=== PATIENT | female | born 1945 | race Asian ===

== ENCOUNTER 2017-04-13 07:59 | Day surgery (SDC) | payer OTHER ==
[~2017-04-13] VITALS: Ht 154.9 cm; Wt 57.5 kg
[2017-04-13] VITALS (14 sets, daily range): BP systolic 165–200; BP diastolic 54–79; PULSE 62–82; RESP 14–28; Ht 154.9 cm; Wt 57.5 kg
[~2017-04-13 07:59] MED LIST: AMLO5TAB4 PO; ATOR20TA38 PO; CEFAZOLIN 1 GM INJ ONE; HYDR-3671 PO; INSU100C SC; LEVEM SC; LOSA50TA2 PO; PANT40TA3 PO; SERT50TA6 PO; SITA25TA3 PO; SYN75 PO
--- NOTE | 2017-04-13 08:06 | HPN ---
Date/Time of Note Date/Time of Note DATE: 04/13/17 TIME: 08:06 Interval H&P Admission Note Pt. seen H&P reviewed: No system changes NANDINI MAGALLON MD Apr 13, 2017 08:06
[2017-04-13] MEDS ORDERED: HEPARIN 1000 UNITS/ML 10 ML INJ ONE ×2 (09:29→10:25)
[2017-04-13] MEDS ORDERED: LIDOCAINE 1% (MPF) 30 ML INJ ONE (09:29)
[2017-04-13] MEDS ORDERED: ROPIVACAINE 0.2% 20 ML VIAL ONE (09:56)
[2017-04-13] MEDS ORDERED: ROPIVACAINE 0.5 % 30 ML VIAL ONE (09:56)
[2017-04-13 09:58] LABS: ADD SCAN DIFF NO
[2017-04-13 10:02] LABS: BASOPHIL # 0.1 10^3/ul (0.0-0.1); BASOPHILS % 0.9 % (0.0-2.0); EOSINOPHILS # 0.3 10^3/ul (0.0-0.5); HEMATOCRIT 35.5 % (37.0-47.0); HEMOGLOBIN 11.8 g/dl (12.0-16.0); LYMPHOCYTES # 0.9 10^3/ul (0.8-2.9); LYMPHOCYTES % 15.5 % (15.0-51.0); MEAN CORPUSCULAR HEMOGLOBIN 31.1 pg (29.0-33.0); MEAN CORPUSCULAR HGB CONC 33.2 g/dl (32.0-37.0); MEAN CORPUSCULAR VOLUME 93.4 fl (82.0-101.0); MEAN PLATELET VOLUME 10.8 fl (7.4-10.4); MONOCYTE # 0.5 10^3/ul (0.3-0.9); MONOCYTES % 8.7 % (0.0-11.0); NEUTROPHIL # 3.8 10^3/ul (1.6-7.5); NEUTROPHILS % 68.5 % (39.0-77.0); PLATELET COUNT 144 10^3/UL (140-415); RED CELL DISTRIBUTION WIDTH 14.6 % (11.5-14.5); WHITE BLOOD COUNT 5.5 10^3/ul (4.8-10.8)
[2017-04-13 10:15] LABS: INR 0.94; PROTIME 12.6 Sec (12.2-14.2)
--- NOTE | 2017-04-13 10:15 | RADRPT ---
Vent Rate: 77 bpm RR Interval: 0 msec MD Interval: 156 msec QRS Duration: 90 msec QT Interval: 440 msec QTC Interval: 497 msec P-R-T Ava: 36 - 17 - 42 degrees Normal sinus rhythm Nonspecific ST and T wave abnormality Prolonged QT Abnormal ECG Electronically Signed By: Bry Swenson [id number]
--- NOTE | 2017-04-13 10:20 | RADRPT ---
PROCEDURE: Chest Radiograph. CLINICAL INDICATION: Preop. TECHNIQUE: Single frontal chest radiograph. COMPARISON: Chest radiograph 06/02/2016 FINDINGS: A right chest wall tunneled hemodialysis catheter is in place with distal tip in the region of the c avoatrial junction. The heart is enlarged. Atherosclerotic calcifications are present. There is m ild central vascular congestion. Diffuse interstitial opacities are compatible with pulmonary edema . Hazy bibasilar opacities suggest small bilateral pleural effusions with adjacent atelectasis.. The bones are intact. IMPRESSION: 1. Cardiomegaly with mild central vascular congestion and suggested pulmonary edema. Recommend cor relation with CHF/fluid overload. 2. Probable small bilateral pleural effusions which can be confirmed with lateral view of the chest . 3. Atherosclerotic vascular disease. 4. Right chest wall tunneled hemodialysis catheter. RPTAT: KK .Dennis Lockett MD, MD Date Time Electronically viewed and signed by .Dennis Lockett MD, on 04/13/2017 10:19 .B/
[2017-04-13 10:22] LABS: ALBUMIN/GLOBULIN RATIO 1.61; BILIRUBIN,INDIRECT 0.1 mg/dl (0-1.1); BILIRUBIN,TOTAL 0.1 mg/dl (0.2-1.3); TOTAL PROTEIN 8.1 g/dl (6.1-8.1)
[2017-04-13 10:26] LABS: CALCIUM 9.4 mg/dl (8.4-10.2); CREATININE 6.63 mg/dl (0.44-1.00)
[2017-04-13] MEDS ORDERED: MIDAZOLAM 1 MG/ML 2 ML INJ ONE (10:29)
[2017-04-13] MEDS ORDERED: hydrALAzine 20 MG INJ ONE ×2 (10:46→11:28)
[2017-04-13 11:05] LABS: PARTIAL THROMBOPLASTIN TIME 36.7 Sec (25.0-35.0)
[2017-04-13] MEDS ORDERED: DIPHENHYDRAMINE 50 MG INJ IV PRN (11:30)
[2017-04-13] MEDS ORDERED: ONDANSETRON 4 MG INJ IV PRN (11:30)
[2017-04-13] MEDS ORDERED: LABETALOL HCL 20MG INJ IV PRN (11:30)
[2017-04-13] MEDS ORDERED: FENTAnyl 50 MCG/ML VIAL IV PRN (11:30)
[2017-04-13] MEDS ORDERED: hydrALAzine 20 MG INJ IV PRN (11:30)
--- NOTE | 2017-04-13 12:56 | OPR ---
DATE OF OPERATION: 04/13/2017 PREOPERATIVE DIAGNOSIS: Nonfunctional left arm arteriovenous fistula. POSTOPERATIVE DIAGNOSIS: Nonfunctional left arm arteriovenous fistula. PROCEDURE PERFORMED: Revision of left arm AV fistula. SURGEON: Nandini Rowley MD ANESTHESIA: Supraclavicular block anesthesia. ESTIMATED BLOOD LOSS: 50 mL. COMPLICATIONS: There were no intraprocedural complications. INDICATIONS: This is a 71-year-old woman. She has been on dialysis for probably over a year. She has a left arm AV fistula that I created 6 months or so ago. The fistula has a good thrill. We hav e intermittently been able to use it, but unfortunately just not consistently accessible. I have do ne several fistulograms and it is a good sized vein, but it is a little bit deep, so I brought her i n today. I was considering either superficializing it or possibly even just putting a graft in. Wh en I evaluated it again in the operating room, the vein is good size, the whole thing is at least 5 or 6 mm and there are several large branches, there is one down towards the elbow which had previous ly coiled, but then two higher up that very all away from the main vein. These were very larg e branches. Also, they were tethering it in a deep position so that it was kind of being pulled hazel n by these branches. So I decided rather than superficializing the whole vein in a linear incision, I decided to just make incisions over where the branches were, to ligate those, divide them and marco e up the vein through the tunnel, which is what I did. PROCEDURE: The patient was brought to the operating room, placed on the table in the supine positio n. Left arm was prepped and draped in the usual sterile fashion. I used ultrasound to identify the vein from the elbow all the way to the upper arm. I marked the areas where there were large side b ranches. I then made 3 transverse incisions across the fistula in the lower, middle and upper arm. I dissected down through the subcutaneous tissues using electrocautery. I then identified the ceph alic vein and the corresponding side branches. I ligated the 3 side branches with 3-0 silk ties and divided them. I then just lifted up on each incision proximally and distally and I cleared all the soft tissue over the top of the vein through the tunnel. I cut the fascia and I cleared away the s ubcutaneous fat, just basically leaving dermis right over the vein from the elbow all the way to the upper arm. I did not cut the vein anywhere, I just cut the soft tissue. I then closed the skin in cisions in 2 layers using an inner layer of 3-0 Vicryl and an outer layer of 4-0 Monocryl subcuticul ar sutures. Sterile dressings were applied. There was an excellent thrill in the fistula that was easily palpated from the elbow all the way to the upper arm. She tolerated the procedure well witho ut any complication and was transferred to the recovery room in stable condition. Dictated By: NANDINI SEQUEIRA/SAMIA Conf#: [id number] DID#: [id number]
== END 2017-04-13 14:00 | disposition home or self-care (01) ==
LOC: SDS 07:59
PROVIDERS: ATTEND Surgery Vascular Surgery
DX: T82.898A Other specified complication of vascular prosthetic devices, implants and grafts, initial encounter (principal); Y84.8 Other medical procedures as the cause of abnormal reaction of the patient, or of later complication, without mention of misadventure at the time of the procedure; Y92.89 Other specified places as the place of occurrence of the external cause; I12.0 Hypertensive chronic kidney disease with stage 5 chronic kidney disease or end stage renal disease; N18.6 End stage renal disease; E78.5 Hyperlipidemia, unspecified
CPT/HCPCS: 36832; 71010; 80053; 82962; 85025; 85610; 85730; 93005; C1725; J0360; J0690; J2250; J2405; J2795; J1644

== ENCOUNTER 2018-05-21 20:05 | Inpatient (IN) | END 2018-05-29 17:40 | disposition home health service (06) | DRG 579 ==

== ENCOUNTER 2018-05-30 17:46 | Emergency (ER) | END 2018-05-30 22:09 | disposition home or self-care (01) ==

== ENCOUNTER 2018-08-25 16:21 | Inpatient (IN) | END 2018-09-04 14:31 | disposition home health service (06) | DRG 917 ==

== ENCOUNTER 2018-12-26 17:37 | Inpatient (IN) | payer BC ==
[~2018-12-26] VITALS: Ht 147.3 cm; Wt 58.1 kg
[~2018-12-26 17:37] MED LIST changes: -AMLO5TAB4 PO; -CEFAZOLIN 1 GM INJ ONE; +CLON1PAT2 TRANSDERM; +DOXA2TAB61 PO; -INSU100C SC; +INSU100I12 SQ; +INSU100I27 SQ; -LEVEM SC; +LEVO75TA5 PO; +NIFE30TA2 PO; +NIFE60TA2 PO; -PANT40TA3 PO; +PANT40TA4 PO; -SYN75 PO
--- NOTE | 2018-12-26 18:00 | ERD ---
ER Documentation Chief Complaint Chief Complaint Complains of SOB sent from MD for eval weakness and a cough, Hx of Dialysis HPI 73-year-old female history of diabetes, hypertension, hypothyroidism, hyperlipidemia, end-stage renal disease on dialysis, duodenal ulcer, GI bleeding and shingles referred to the ED for evaluation of shortness of breath and hypoxia by her PMD Dr. Willis. Patient did have her regular dialysis earlier today. Denies chest pain or palpitations. Chronic, nonproductive cough but no URI symptoms. Generalized weakness but no headache, focal weakness or numbness. Denies abdominal pain, nausea or vomiting. No fevers or chills. ROS All systems reviewed and are negative except as per history of present illness. Medications Home Meds Reported Medications Insulin Lispro (Humalog) 100 Unit/1 Ml Cartridge, 0 SQ SLIDING SCALE, EA 12/26/18 Insulin Detemir (Levemir Flextouch) 100 Unit/1 Ml Insuln.pen, 6 UNIT SQ DAILY, EA 12/26/18 Atorvastatin Calcium* (Atorvastatin Calcium*) 20 Mg Tablet, 20 MG PO QHS, #30 TAB 12/26/18 Doxazosin Mesylate* (Doxazosin Mesylate*) 2 Mg Tablet, 6 MG PO HS, TAB 12/26/18 Hydralazine Hcl* (Hydralazine Hcl*) 50 Mg Tab, 75 MG PO TID, #90 TAB 12/26/18 Losartan Potassium* (Losartan Potassium*) 50 Mg Tablet, 50 MG PO BID, TAB 12/26/18 Sitagliptin* (Januvia*) 25 Mg Tablet, 25 MG PO DAILY, #30 TAB 12/26/18 Sertraline Hcl* (Sertraline Hcl*) 50 Mg Tablet, 50 MG PO DAILY, #30 TAB 12/26/18 Nifedipine* (Nifedipine ER*) 30 Mg Tablet.sa, 30 MG PO QPM, TAB.SA 12/26/18 Nifedipine* (Nifedipine ER*) 60 Mg Tablet.sa, 60 MG PO QAM, TAB.SA 12/26/18 Pantoprazole* (Pantoprazole*) 40 Mg Tablet.dr, 40 MG PO DAILY, TAB 12/26/18 Levothyroxine Sodium* (Levothyroxine Sodium*) 75 Mcg Tablet, 75 MCG PO BEFORE BREAKFAST, #30 TAB 12/26/18 Clonidine Patch (CLONIDINE PATCH) 0.3 Mg/24 Hr Patch, 1 PATCH.WK TD Q7D, #4 PATCH.WK 12/26/18 Discontinued Reported Medications Atorvastatin Calcium* (Atorvastatin Calcium*) 20 Mg Tablet, 20 MG PO QHS, #30 TAB 08/22/18 Insulin Lispro (Humalog Kwikpen U-100) 100 Unit/1 Ml Insuln.pen, 0 SQ SLIDING SCALE, EA 05/30/18 Insulin Detemir (Levemir Flextouch) 100 Unit/1 Ml Insuln.pen, 6 UNIT SQ DAILY, EA 05/30/18 Sitagliptin* (Januvia*) 25 Mg Tablet, 25 MG PO DAILY, #30 TAB 05/30/18 Sertraline Hcl* (Sertraline Hcl*) 50 Mg Tablet, 50 MG PO DAILY, #30 TAB 05/30/18 Levothyroxine Sodium* (Levothyroxine Sodium*) 75 Mcg Tablet, 75 MCG PO BEFORE BREAKFAST, #30 TAB 05/30/18 Pantoprazole* (Pantoprazole*) 40 Mg Tablet.dr, 40 MG PO AC BREAKFAST, TAB 05/30/18 Discontinued Scripts Nifedipine (Procardia Xl) 30 Mg Tab.er.24, 30 MG PO QPM for 30 Days, #30 TAB Prov:IGNACIO WILLIS MD 09/04/18 Nifedipine (Procardia Xl) 60 Mg Tab.er.24, 60 MG PO DAILY for 30 Days, #30 TAB Prov:IGNACIO WILLIS MD 09/04/18 Losartan Potassium* (Cozaar*) 50 Mg Tablet, 50 MG PO BID for 30 Days, #60 TAB Prov:IGNACIO WILLIS MD 09/04/18 Hydralazine Hcl* (Hydralazine Hcl*) 25 Mg Tab, 75 MG PO Q8 for 30 Days, #90 TAB Prov:IGNACIO WILLIS MD 09/04/18 Doxazosin Mesylate* (Cardura*) 2 Mg Tablet, 6 MG PO HS for 30 Days, #90 TAB Prov:IGNACIO WILLIS MD 09/04/18 Clonidine Patch (CLONIDINE PATCH) 0.2 Mg/24 Hr Patch, 1 PATCH TRANSDERM Q7D for 30 Days, #4 Prov:IGNACIO WILLIS MD 09/04/18 Allergies Allergies: Coded Allergies: No Known Allergy (Unverified , 12/26/18) PMhx/Soc Reviewed in chart. As per HPI. History of Surgery: Yes (abdominal ulcer S 2016, left breast) Anesthesia Reaction: No Hx Neurological Disorder: No Hx Respiratory Disorders: Yes (SOB with activities) Hx Cardiac Disorders: Yes (CHF) Hx Psychiatric Problems: Yes (Dementia) Hx Miscellaneous Medical Probl: Yes (Diabetes, end-stage renal disease on dialysis, hyperlipidemia) Hx Alcohol Use: No Hx Substance Use: No Hx Tobacco Use: No FmHx Mother: Diabetes. No family history of sudden cardiac or cancer. Physical Exam Vitals Vital Signs Date Temp Pulse Resp B/P (MAP) Pulse Ox O2 O2 Flow FiO2 Time Delivery Rate 12/26/18 86 99 35 19:41 12/26/18 1.0 18:17 12/26/18 91 100 35 18:17 12/26/18 98.8 86 20 138/73 83 17:46 (94) Physical Exam Const: Alert, moderate to severe respiratory distress. Head: Atraumatic Eyes: Normal Conjunctiva ENT: Normal External Ears, Nose and Mouth. Neck: Full range of motion. JVD. Resp: Breath sounds are diminished bilaterally at the bases right greater than left. Mild rales but no rhonchi. Cardio: Regular rate and rhythm, no murmurs Abd: Soft, non tender, non distended. Normal bowel sounds Skin: No petechiae or rashes Back: No midline or flank tenderness Ext: No cyanosis, or edema Neur: Awake and alert. No focal deficit observed. Psych: Cooperative. Patient appears anxious but not depressed. Result Diagram: 12/29/18 0649 12/29/18 0649 Results 24 hrs Laboratory Tests Test 12/26/18 18:14 12/26/18 18:30 Hepatitis B Surface Antigen NEGATIVE White Blood Count 12.6 10^3/ul Red Blood Count 3.10 10^6/ul Hemoglobin 9.9 g/dl Hematocrit 30.7 % Mean Corpuscular Volume 99.0 fl Mean Corpuscular Hemoglobin 31.9 pg Mean Corpuscular Hemoglobin Concent 32.2 g/dl Red Cell Distribution Width 14.1 % Platelet Count 186 10^3/UL Mean Platelet Volume 9.2 fl Immature Granulocytes % 0.900 % Neutrophils % 87.3 % Lymphocytes % 2.7 % Monocytes % 7.4 % Eosinophils % 1.1 % Basophils % 0.6 % Nucleated Red Blood Cells % 0.0 /100WBC Immature Granulocytes # 0.110 10^3/ul Neutrophils # 11.0 10^3/ul Lymphocytes # 0.3 10^3/ul Monocytes # 0.9 10^3/ul Eosinophils # 0.1 10^3/ul Basophils # 0.1 10^3/ul Nucleated Red Blood Cells # 0.0 10^3/ul Sodium Level 140 mmol/L Potassium Level 4.2 mmol/L Chloride Level 92 mmol/L Carbon Dioxide Level 34 mmol/L Anion Gap 14 Blood Urea Nitrogen 19 mg/dl Creatinine 3.44 mg/dl Est Glomerular Filtrat Rate mL/min mL/min Glucose Level 107 mg/dl Calcium Level 9.7 mg/dl Total Bilirubin 0.1 mg/dl Direct Bilirubin 0.00 mg/dl Indirect Bilirubin 0.1 mg/dl Aspartate Amino Transf (AST/SGOT) 34 IU/L Alanine Aminotransferase (ALT/SGPT) < 6 IU/L Alkaline Phosphatase 166 IU/L Troponin I 0.045 ng/ml Total Protein 9.6 g/dl Albumin 4.8 g/dl Globulin 4.80 g/dl Albumin/Globulin Ratio 1.00 Procedures/MDM DOCUMENTS REVIEWED: ED nurse, prior ED, prior records EKG: Time: 18:36. Sinus rhythm. Ventricular rate 87. Normal ME and QRS. Occasional PACs. No acute ST segment elevation or depression. My Interpretation IMAGING: PROCEDURE: XR Chest, 1 View CLINICAL INDICATION: Shortness of breath. TECHNIQUE: Frontal view of the chest. COMPARISON: 06/02/2016 FINDINGS: LUNGS: Increased pulmonary vascularity and increased interstitial markings noted. Bilateral air space infiltrates. PLEURAL SPACE: Large right pleural effusion. No left pleural effusion. No pneumothorax. HEART: Cardiomegaly is present. MEDIASTINUM: Unremarkable. BONES/JOINTS: Degenerative thoracic spine changes. VASCULATURE: Mildly tortuous, atherosclerotic thoracic aorta. IMPRESSION: 1. Cardiomegaly is present. 2. Increased pulmonary vascularity and increased interstitial markings noted. Bilateral air space infiltrates. The findings are consistent with pulmonary edema/CHF. 3. Large right pleural effusion. 4. The findings are new when compared to 06/02/2016. RPTAT: [facility] Paty Orozco Physician Bio Medical Technician Date Time Electronically viewed and signed by Paty Orozco Physician Bio Medical Technician on 12/26/2018 18:44 [facility] [place] [employer]-year-old female history of diabetes, hypertension, hypothyroidism, hyperlipidemia, end-stage renal disease on dialysis, duodenal ulcer, GI bleeding and shingles referred to the ED for evaluation of shortness of breath and hypoxia by her PMD Dr. Willis. CBC reveals mild leukocytosis and anemia consistent with prior results. Chemistry significant for elevated BUN and creatinine consistent with the patient is a history of end-stage renal disease but no hyperkalemia. EKG negative for acute ischemic changes. Troponin is not elevated. Patient presents with hypoxic respiratory failure secondary to volume overload and pleural effusions. Responded to noninvasive positive pressure ventilation. Leukocytosis but no other criteria for systemic inflammatory response syndrome. Patient require urgent dialysis and will be admitted to telemetry for further evaluation and management. CRITICAL CARE TIME: Due to the high probability of sudden clinically significant respiratory, hemodynamic and cardiovascular deterioration, this patient with hypoxic respiratory failure required multiple, frequent reevaluations of vital signs and response to therapy including noninvasive positive pressure ventilation. Additional critical care time was spent in obtaining supplemental history from PMD, extensive review of prior medical records, interpretation of relevant clinical data including labs and imaging studies as well as consultation with cardiology, nephrology and arranging for ongoing care and admission with Dr. Willis there is no. Using the TOTAL CRITICAL CARE TIME: 35 minutes not including other separately reportable procedures. CALLS/CONSULTS: Time: 18:55, Dr Willis. Request nephrology and cardiology consultations. CALLS/CONSULTS: Time: 19:08, Dr. Garland. Discussed with Dr Sams. Will arrange for dialysis. CALLS/CONSULTS: Time: 19:08, Dr. Acuña. Discussed with Dr Weller. PATIENT CARE TRANSITIONED: Time: 18:55, Dr. Willis Counseled patient regarding diagnosis, diagnostic results and plan for admission. Departure Diagnosis: Primary Impression: Acute respiratory failure with hypoxia Additional Impressions: Volume overload Hypervolemia type: unspecified Qualified Codes: E87.70 - Fluid overload, u nspecified Bilateral pleural effusion End stage renal disease on dialysis Condition: Serious CHARISSA,SONI B. MD Dec 26, 2018 18:00
[2018-12-26] MEDS ORDERED: CLON1PAT3 TD (18:25)
[2018-12-26] MEDS ORDERED: LEVO75TA5 PO (18:26)
[2018-12-26] MEDS ORDERED: PANT40TA4 PO (18:27)
[2018-12-26] MEDS ORDERED: NIFE60TA18 PO (18:28)
[2018-12-26] MEDS ORDERED: NIFE30TA23 PO (18:29)
[2018-12-26] MEDS ORDERED: SERT50TA6 PO (18:30)
[2018-12-26] MEDS ORDERED: SITA25TA3 PO (18:30)
[2018-12-26] MEDS ORDERED: LOSA50TA14 PO (18:31)
[2018-12-26] MEDS ORDERED: DOXA2TAB PO (18:32)
[2018-12-26] MEDS ORDERED: HYDR-3672 PO (18:32)
[2018-12-26] MEDS ORDERED: ATOR20TA38 PO (18:33)
[2018-12-26] MEDS ORDERED: INSU100I27 SQ (18:34)
[2018-12-26] MEDS ORDERED: INSU100C SQ (18:36)
[2018-12-26] MEDS ORDERED: ONDANSETRON 4 MG INJ IV PRN (20:00)
[2018-12-26] MEDS ORDERED: ACETAMINOPHEN 325 MG TAB PO PRN (20:00)
--- NOTE | 2018-12-26 21:11 | CONS ---
DATE OF ADMISSION: 12/26/2018 DATE OF CONSULTATION: Thank you very much for allowing me to evaluate this 73-year-old female admitted to the hospital with cough and shortness of breath. HISTORICAL EVENTS: As you well know, this patient has continued outpatient dialysis 3 times per week at [facility] unit . It has been over the last week that she has noted increasing shortness of cristi ath and approximately 1 week ago, she has clear evidence of volume overload and I attempted to maximi ze of ultrafiltration in hopes of improving the latter. It was in the afternoon today that she was m ore dyspneic and had a paroxysmal cough. I alerted you that I was concerned that she had a CHF and a n accompanying upper respiratory tract infection and thought ER eval and ultimate admission was neede d. She denied any chest pain. She had no nausea or vomiting. PAST MEDICAL HISTORY: Includes: 1. End-stage renal disease. 2. Anemia secondary to the same. 3. Hyperlipidemia. 4. Hypertension. 5. History of congestive heart failure. 6. History of duodenal ulcer with bleeding and known gastroesophageal reflux. 7. Hypothyroidism. 8. History of shingles involving the anterior chest, requiring hospitalization in August of this y ear. 9. Anterior chest wall mass, undergoing biopsy that was benign with slow healing undergoing regular evaluations at the wound care center. MEDICATIONS: On admission include: 1. Norvasc 5 b.i.d. 2. Protonix 40 per day. 3. Levemir 6 units per day. 4. Losartan 50 mg per day. 5. Januvia 25 mg per day. 6. Hydralazine 50 mg t.i.d. 7. Synthroid 75 mcg per day. 8. Zoloft 50 mg per day. 9. Lipitor 20 mg per day. 10. Catapres patch TTS-3 to be applied daily. 11. Cardura 6 mg daily. ALLERGIES: INCLUDE BENAZEPRIL. SOCIAL HISTORY: She does not drink or use alcohol. FAMILY HISTORY: Mother related to diabetes. Father related to dementia. She has 2 daught ers. PHYSICAL EXAMINATION: GENERAL: Dyspneic female in mild distress. VITAL SIGNS: BP 129/78, pulse 70 regular, respirations 22. She was afebrile. EYES: Extraocular muscles were full. NOSE, MOUTH, AND THROAT: Normal. NECK: Supple without adenopathy. JVD was present. LUNGS: Reduced breath sounds with a few expiratory wheezes. HEART: Rhythm regular. No third sound, I/ systolic murmur. No third or fourth sound. ABDOMEN: Nontender. Liver and spleen were not palpable. No mass or tenderness were noted. EXTREMITIES: No edema. NEUROLOGIC: No lateralizing motor weakness. SKIN: Revealed scars involving the anterior chest. IMPRESSION: 1. Clear evidence of volume overload/congestive heart failure. SC needs to be excluded. Will aggre ssively ultrafiltrate her. We will aggressively provide ultrafiltration tonight despite dialysis ear lier today. 2. Anemia. We will obtain iron studies and continue Procrit. 3. Await chest x-ray. May need broad spectrum antimicrobial therapy. 4. Continue pain related to shingles involving the anterior chest. We will follow with you. Dictated By: RONNIE VIVAR/SAMIA Conf#: [id number] DID#: [id number]
[2018-12-26 23:21] VITALS: PULSE 88
[2018-12-26 23:40] VITALS: BP_SYST 175; BP_SYST 180; BP_DIAS 77; BP_DIAS 92; PULSE 80; PULSE 83; RESP 19
[2018-12-26 23:55] VITALS: BP 149/90; PULSE 84
[2018-12-27] VITALS (33 sets, daily range): BP systolic 87–189; BP diastolic 35–82; PULSE 49–92; RESP 18–22; Ht 147.3 cm; Wt 58.1 kg
--- NOTE | 2018-12-27 08:31 | CONS ---
Assessment/Plan Assessment/Plan Assessment/Plan (Daily) Chest x-ray showing moderate right pleural effusion. Assessment recommendations; 1. Patient admitted with shortness of breath which is combination of pleural effusion as well as possibly acute bronchitis. 2. Prior history of pleural effusion, is not sure whether thoracentesis was performed or not. 3. Chronic renal failure, on hemodialysis. 4. Possibly some element of CHF as well. 5. History of diabetes and hypertension. 6. Anemia and thrombocytopenia. 7. History of hypothyroidism. Continue current supportive care. Obtain ultrasound-guided right thoracentesis. Start oral Zithromax for bronchitis. I did have a detailed discussion with the patient's at bedside and answered all his questions. Consultation Date/Type/Reason Admit Date/Time Dec 26, 2018 at 19:46 Date of Consultation: Dec 27, 2018 Type of Consult Pulmonary Pulmonary consult requested for evaluation of shortness of breath and pleural effusion. Patient is a pleasant 72-year-old [place] lady who was sent over to the hospital with complaints of shortness of breath for the last 2 days. Upon further evaluation a chest x-ray was done which is showing a moderate right pleural effusion. Patient also has been complaining of cough with production of pale yellow sputum for the last 2 days. Patient denies any wheezing, chest p ain, hemoptysis any fever or chills. By the time I saw the patient in the room, patient appeared comfortable and did not appear to be in any distress. Past medical history; 1. History of chronic renal failure, on hemodialysis since 2016. 2. Prior episode of pleural effusion status post thoracentesis questionable per . 3. History of diabetes and hypertension. 4. Chronic anemia. 5. History of hypothyroidism. 6. History of GI bleed due to duodenal ulcer. Medications; reviewed. Allergies; none. Social history; patient never smoked. Family history; she is , has a supportive . 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 Review of systems; denies any headache, visual changes. Any sinus symptoms. Denies any chest pain, complains of cough as outlined above. Denies any abdominal pain, nausea vomiting. Any GI bleed. Any weight loss. Has good appetite. Complains of chronic easy skin bruising. General exam; elderly female, awake alert, currently in no distress. Date/Time of Note DATE: 12/27/18 TIME: 08:27 Past Medical History Home Meds Reported Medications Insulin Lispro (Humalog) 100 Unit/1 Ml Cartridge, 0 SQ SLIDING SCALE, EA 12/26/18 Insulin Detemir (Levemir Flextouch) 100 Unit/1 Ml Insuln.pen, 6 UNIT SQ DAILY, EA 12/26/18 Atorvastatin Calcium* (Atorvastatin Calcium*) 20 Mg Tablet, 20 MG PO QHS, #30 TAB 12/26/18 Doxazosin Mesylate* (Doxazosin Mesylate*) 2 Mg Tablet, 6 MG PO HS, TAB 12/26/18 Hydralazine Hcl* (Hydralazine Hcl*) 50 Mg Tab, 75 MG PO TID, #90 TAB 12/26/18 Losartan Potassium* (Losartan Potassium*) 50 Mg Tablet, 50 MG PO BID, TAB 12/26/18 Sitagliptin* (Januvia*) 25 Mg Tablet, 25 MG PO DAILY, #30 TAB 12/26/18 Sertraline Hcl* (Sertraline Hcl*) 50 Mg Tablet, 50 MG PO DAILY, #30 TAB 12/26/18 Nifedipine* (Nifedipine ER*) 30 Mg Tablet.sa, 30 MG PO QPM, TAB.SA 12/26/18 Nifedipine* (Nifedipine ER*) 60 Mg Tablet.sa, 60 MG PO QAM, TAB.SA 12/26/18 Pantoprazole* (Pantoprazole*) 40 Mg Tablet.dr, 40 MG PO DAILY, TAB 12/26/18 Levothyroxine Sodium* (Levothyroxine Sodium*) 75 Mcg Tablet, 75 MCG PO BEFORE BREAKFAST, #30 TAB 12/26/18 Clonidine Patch (CLONIDINE PATCH) 0.3 Mg/24 Hr Patch, 1 PATCH.WK TD Q7D, #4 PATCH.WK 12/26/18 Discontinued Reported Medications Atorvastatin Calcium* (Atorvastatin Calcium*) 20 Mg Tablet, 20 MG PO QHS, #30 TAB 08/22/18 Insulin Lispro (Humalog Kwikpen U-100) 100 Unit/1 Ml Insuln.pen, 0 SQ SLIDING SCALE, EA 05/30/18 Insulin Detemir (Levemir Flextouch) 100 Unit/1 Ml Insuln.pen, 6 UNIT SQ DAILY, EA 05/30/18 Sitagliptin* (Januvia*) 25 Mg Tablet, 25 MG PO DAILY, #30 TAB 05/30/18 Sertraline Hcl* (Sertraline Hcl*) 50 Mg Tablet, 50 MG PO DAILY, #30 TAB 05/30/18 Levothyroxine Sodium* (Levothyroxine Sodium*) 75 Mcg Tablet, 75 MCG PO BEFORE BREAKFAST, #30 TAB 05/30/18 Pantoprazole* (Pantoprazole*) 40 Mg Tablet.dr, 40 MG PO AC BREAKFAST, TAB 05/30/18 Discontinued Scripts Nifedipine (Procardia Xl) 30 Mg Tab.er.24, 30 MG PO QPM for 30 Days, #30 TAB Prov:IGNACIO WILLIS MD 09/04/18 Nifedipine (Procardia Xl) 60 Mg Tab.er.24, 60 MG PO DAILY for 30 Days, #30 TAB Prov:IGNACIO WILLIS MD 09/04/18 Losartan Potassium* (Cozaar*) 50 Mg Tablet, 50 MG PO BID for 30 Days, #60 TAB Prov:IGNACIO WILLIS MD 09/04/18 Hydralazine Hcl* (Hydralazine Hcl*) 25 Mg Tab, 75 MG PO Q8 for 30 Days, #90 TAB Prov:IGNACIO WILLIS MD 09/04/18 Doxazosin Mesylate* (Cardura*) 2 Mg Tablet, 6 MG PO HS for 30 Days, #90 TAB Prov:IGNACIO WILLIS MD 09/04/18 Clonidine Patch (CLONIDINE PATCH) 0.2 Mg/24 Hr Patch, 1 PATCH TRANSDERM Q7D for 30 Days, #4 Prov:IGNACIO WILLIS MD 09/04/18 Medications Current Medications Ondansetron HCl (Zofran Inj) 4 mg ER BRIDGE PRN IV NAUSEA/VOMITING; Start 12/26/18 at 20:00; Stop 12/27/18 at 19:59 Acetaminophen (Tylenol Tab) 650 mg ER BRIDGE PRN PO .MILD PAIN 1-3 OR TEMP; Start 12/26/18 at 20:00; Stop 12/27/18 at 19:59 Albumin Human 50 ml @ 100 mls/hr WITH DIALYSIS PRN IV SBP < 90 DURING DIALYSIS; Start 12/26/18 at 23:00 Hydralazine HCl (Apresoline) 75 mg TID PO ; Start 12/27/18 at 09:00 Allergies: Coded Allergies: No Known Allergy (Unverified , 12/26/18) Social History Smoking Status: Never smoker Exam/Review of Systems Exam Vitals Vital Signs Date Temp Pulse Resp B/P (MAP) Pulse Ox O2 O2 Flow FiO2 Time Delivery Rate 12/27/18 79 08:20 12/27/18 100.2 18 150/62 92 Nasal 07:31 (91) Cannula 12/27/18 2.0 01:32 12/26/18 35 19:41 Intake and Output 12/26/18 12/26/18 12/27/18 1515:00 23:00 07:00 OutputOutput Total 2400 ml BalanceBalance -2400 ml Exam HEENT exam; supple neck, no JVD. No lymphadenopathy. Midline trachea. No thyromegaly. Pupils are small bilaterally. Patient has a multiple carious teeth. Chest exam; diminished breath sounds right lower lobe. Rest of the lung velásquez are clear. S1-S2 audible, no murmurs. Regular rhythm. Abdomen exam; soft, nontender. No organomegaly. Bowel sounds audible. Extremity exam; no peripheral edema. Patient does have patchy ecchymosis. INTELLECTUAL PROPERTY LEGAL ASSISTANT exam; no focal deficit. Results Result Diagram: 12/26/18 1830 12/26/18 1830 Results 24hrs Laboratory Tests Test 12/26/18 18:14 12/26/18 18:30 12/26/18 21:00 Hepatitis B Surface Antigen NEGATIVE White Blood Count 12.6 #H Red Blood Count 3.10 L Hemoglobin 9.9 L Hematocrit 30.7 L Mean Corpuscular Volume 99.0 Mean Corpuscular Hemoglobin 31.9 Mean Corpuscular 32.2 Hemoglobin Concent Red Cell Distribution Width 14.1 Platelet Count 186 # Mean Platelet Volume 9.2 Immature Granulocytes % 0.900 H Neutrophils % 87.3 H Lymphocytes % 2.7 L Monocytes % 7.4 Eosinophils % 1.1 Basophils % 0.6 Nucleated Red Blood Cells % 0.0 Immature Granulocytes # 0.110 H Neutrophils # 11.0 H Lymphocytes # 0.3 L Monocytes # 0.9 Eosinophils # 0.1 Basophils # 0.1 Nucleated Red Blood Cells # 0.0 Sodium Level 140 Potassium Level 4.2 Chloride Level 92 L Carbon Dioxide Level 34 H Anion Gap 14 H Blood Urea Nitrogen 19 Creatinine 3.44 H Est Glomerular Filtrat Rate mL/min Glucose Level 107 Calcium Level 9.7 Total Bilirubin 0.1 L Direct Bilirubin 0.00 Indirect Bilirubin 0.1 Aspartate Amino 34 Transf (AST/SGOT) Alanine < 6 L Aminotransferase (ALT/SGPT) Alkaline Phosphatase 166 H Troponin I 0.045 Total Protein 9.6 H Albumin 4.8 Globulin 4.80 H Albumin/Globulin Ratio 1.00 Blood Gas Specimen Source Blood arterial Arterial Blood Date Drawn 12/26/2018 7:30:29 PM Arterial Blood pH 7.502 H (Temp corrected) Arterial Blood pCO2 40.9 (Temp correct) Arterial Blood pO2 105.3 H (Temp corrected) Arterial Blood HCO3 31.3 H Arterial Blood Base Excess 7.5 H Arterial Blood 97.7 Oxygen Saturation Abhi Test ACCEPTAB Arterial Blood Gas Right Radial Puncture Site Arterial 1.0 Blood Carboxyhemoglobin Arterial Blood Methemoglobin 0.1 Blood Gas A-a O2 Differential 96.7 H Oxyhemoglobin Percent 96.6 Blood Gas Temperature 37.0 Blood Gas Respiration Rate 14.0 Blood Gas Actual 23 Respiration Rate Blood Gas Modality MASK - BIPAP FiO2 35.0 Blood Gas Pressure Support 10 Blood Gas IPAP/EPAP Ratio 15/5 Blood Gas Notified Whom MA Blood Gas Notified Time 12/26/2018 7:45:23 PM Medications Medication Current Medications Ondansetron HCl (Zofran Inj) 4 mg ER BRIDGE PRN IV NAUSEA/VOMITING; Start 12/26/18 at 20:00; Stop 12/27/18 at 19:59 Acetaminophen (Tylenol Tab) 650 mg ER BRIDGE PRN PO .MILD PAIN 1-3 OR TEMP; Start 12/26/18 at 20:00; Stop 12/27/18 at 19:59 Albumin Human 50 ml @ 100 mls/hr WITH DIALYSIS PRN IV SBP < 90 DURING DIALYSIS; Start 12/26/18 at 23:00 Hydralazine HCl (Apresoline) 75 mg TID PO ; Start 12/27/18 at 09:00 JIMMY GREGORY Dec 27, 2018 08:31
--- NOTE | 2018-12-27 08:47 | CONS ---
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) check procalcitonin check nasal for MRSA ordered respiratory culture 2) DM 3) ESRD 4) HTN 5) chest wall wound infection no further drainage and no sign of redness at prior site Consultation Date/Type/Reason Admit Date/Time Dec 26, 2018 at 19:46 Date of Consultation: Dec 27, 2018 Type of Consult ID Date/Time of Note DATE: 12/27/18 TIME: 08:42 Hx of Present Illness Pt has had a cough and SOB for a week cough productive of creamy phlegm no F, C, NS No N, V, D no CP she has a sore throat, no coryza no muscle aches or joint pains Past Medical History DM, HTN, hyperlipidemia, hypothyroidism, ESRD, CHF Home Meds Reported Medications Insulin Lispro (Humalog) 100 Unit/1 Ml Cartridge, 0 SQ SLIDING SCALE, EA 12/26/18 Insulin Detemir (Levemir Flextouch) 100 Unit/1 Ml Insuln.pen, 6 UNIT SQ DAILY, EA 12/26/18 Atorvastatin Calcium* (Atorvastatin Calcium*) 20 Mg Tablet, 20 MG PO QHS, #30 TAB 12/26/18 Doxazosin Mesylate* (Doxazosin Mesylate*) 2 Mg Tablet, 6 MG PO HS, TAB 12/26/18 Hydralazine Hcl* (Hydralazine Hcl*) 50 Mg Tab, 75 MG PO TID, #90 TAB 12/26/18 Losartan Potassium* (Losartan Potassium*) 50 Mg Tablet, 50 MG PO BID, TAB 12/26/18 Sitagliptin* (Januvia*) 25 Mg Tablet, 25 MG PO DAILY, #30 TAB 12/26/18 Sertraline Hcl* (Sertraline Hcl*) 50 Mg Tablet, 50 MG PO DAILY, #30 TAB 12/26/18 Nifedipine* (Nifedipine ER*) 30 Mg Tablet.sa, 30 MG PO QPM, TAB.SA 12/26/18 Nifedipine* (Nifedipine ER*) 60 Mg Tablet.sa, 60 MG PO QAM, TAB.SA 12/26/18 Pantoprazole* (Pantoprazole*) 40 Mg Tablet.dr, 40 MG PO DAILY, TAB 12/26/18 Levothyroxine Sodium* (Levothyroxine Sodium*) 75 Mcg Tablet, 75 MCG PO BEFORE BREAKFAST, #30 TAB 12/26/18 Clonidine Patch (CLONIDINE PATCH) 0.3 Mg/24 Hr Patch, 1 PATCH.WK TD Q7D, #4 PATCH.WK 12/26/18 Discontinued Reported Medications Atorvastatin Calcium* (Atorvastatin Calcium*) 20 Mg Tablet, 20 MG PO QHS, #30 TAB 08/22/18 Insulin Lispro (Humalog Kwikpen U-100) 100 Unit/1 Ml Insuln.pen, 0 SQ SLIDING S MARTÍNEZ, EA 05/30/18 Insulin Detemir (Levemir Flextouch) 100 Unit/1 Ml Insuln.pen, 6 UNIT SQ DAILY, EA 05/30/18 Sitagliptin* (Januvia*) 25 Mg Tablet, 25 MG PO DAILY, #30 TAB 05/30/18 Sertraline Hcl* (Sertraline Hcl*) 50 Mg Tablet, 50 MG PO DAILY, #30 TAB 05/30/18 Levothyroxine Sodium* (Levothyroxine Sodium*) 75 Mcg Tablet, 75 MCG PO BEFORE BREAKFAST, #30 TAB 05/30/18 Pantoprazole* (Pantoprazole*) 40 Mg Tablet.dr, 40 MG PO AC BREAKFAST, TAB 05/30/18 Discontinued Scripts Nifedipine (Procardia Xl) 30 Mg Tab.er.24, 30 MG PO QPM for 30 Days, #30 TAB Prov:IGNACIO WILLIS MD 09/04/18 Nifedipine (Procardia Xl) 60 Mg Tab.er.24, 60 MG PO DAILY for 30 Days, #30 TAB Prov:IGNACIO WILLIS MD 09/04/18 Losartan Potassium* (Cozaar*) 50 Mg Tablet, 50 MG PO BID for 30 Days, #60 TAB Prov:IGNACIO WILLIS MD 09/04/18 Hydralazine Hcl* (Hydralazine Hcl*) 25 Mg Tab, 75 MG PO Q8 for 30 Days, #90 TAB Prov:IGNACIO WILLIS MD 09/04/18 Doxazosin Mesylate* (Cardura*) 2 Mg Tablet, 6 MG PO HS for 30 Days, #90 TAB Prov:IGNACIO WILLIS MD 09/04/18 Clonidine Patch (CLONIDINE PATCH) 0.2 Mg/24 Hr Patch, 1 PATCH TRANSDERM Q7D for 30 Days, #4 Prov:IGNACIO WILLIS MD 09/04/18 Medications Current Medications Albumin Human 50 ml @ 100 mls/hr WITH DIALYSIS PRN IV SBP < 90 DURING DIALYSIS; Start 12/26/18 at 23:00 Hydralazine HCl (Apresoline) 75 mg TID PO ; Start 12/27/18 at 09:00 Azithromycin (Zithromax) 500 mg ONCE ONCE PO ; Start 12/27/18 at 09:00; Stop 12/27/18 at 09:01 Azithromycin (Zithromax) 250 mg DAILY PO ; Start 12/28/18 at 09:00; Stop 12/31/18 at 09:01 Ceftriaxone Sodium 1000 mg/ Sodium Chloride 50 ml @ 100 mls/hr Q24H IVPB ; Start 12/27/18 at 09:00; Status UNV Allergies: Coded Allergies: No Known Allergy (Unverified , 12/26/18) Social History Smoking Status: Never smoker Exam/Review of Systems Exam Vitals Vital Signs Date Temp Pulse Resp B/P (MAP) Pulse Ox O2 O2 Flow FiO2 Time Delivery Rate 12/27/18 79 08:20 12/27/18 100.2 18 150/62 92 Nasal 07:31 (91) Cannula 12/27/18 2.0 01:32 12/26/18 35 19:41 Intake and Output 12/26/18 12/26/18 12/27/18 1515:00 23:00 07:00 OutputOutput Total 2400 ml BalanceBalance -2400 ml Exam pt is a bit lethargic but answers questions with prompting Constitutional: alert Eyes: nl sclera ENMT: mucosa pink and moist Respiratory: clear to auscultation Cardiovascular: regular rate and rhythm Gastrointestinal: soft, non-tender Results Result Diagram: 12/26/18 1830 12/26/18 1830 Results 24hrs Laboratory Tests Test 12/26/18 18:14 12/26/18 18:30 12/26/18 21:00 12/27/18 07:25 Hepatitis B NEGATIVE Surface Antigen White Blood Count 12.6 #H Pending Red Blood Count 3.10 L Pending Hemoglobin 9.9 L Pending Hematocrit 30.7 L Pending Mean Corpuscular 99.0 Pending Volume Mean Corpuscular 31.9 Pending Hemoglobin Mean Corpuscular 32.2 Pending Hemoglobin Concent Red Cell 14.1 Pending Distribution Width Platelet Count 186 # Pending Mean Platelet 9.2 Pending Volume Immature 0.900 H Granulocytes % Neutrophils % 87.3 H Lymphocytes % 2.7 L Monocytes % 7.4 Eosinophils % 1.1 Basophils % 0.6 Nucleated Red 0.0 Blood Cells % Immature 0.110 H Granulocytes # Neutrophils # 11.0 H Lymphocytes # 0.3 L Monocytes # 0.9 Eosinophils # 0.1 Basophils # 0.1 Nucleated Red 0.0 Blood Cells # Sodium Level 140 Potassium Level 4.2 Chloride Level 92 L Carbon Dioxide 34 H Level Anion Gap 14 H Blood Urea 19 Nitrogen Creatinine 3.44 H Est Glomerular Filtrat Rate mL/min Glucose Level 107 Calcium Level 9.7 Total Bilirubin 0.1 L Direct Bilirubin 0.00 Indirect Bilirubin 0.1 Aspartate Amino 34 Transf (AST/SGOT) Alanine < 6 L Aminotransferase ( ALT/SGPT) Alkaline 166 H Phosphatase Troponin I 0.045 Total Protein 9.6 H Albumin 4.8 Globulin 4.80 H Albumin/Globulin 1.00 Ratio Blood Gas Specimen Blood arterial Source Arterial Blood 12/26/2018 7:30:29 Date Drawn PM Arterial Blood pH 7.502 H (Temp corrected) Arterial Blood 40.9 pCO2 (Temp correct) Arterial Blood pO2 105.3 H (Temp corrected) Arterial Blood 31.3 H HCO3 Arterial Blood 7.5 H Base Excess Arterial Blood 97.7 Oxygen Saturation Abhi Test ACCEPTAB Arterial Blood Gas Right Radial Puncture Site Arterial 1.0 Blood Carboxyhemog lobin Arterial Blood 0.1 Methemoglobin Blood Gas A-a O2 96.7 H Differential Oxyhemoglobin 96.6 Percent Blood Gas 37.0 Temperature Blood Gas 14.0 Respiration Rate Blood Gas Actual 23 Respiration Rate Blood Gas Modality MASK - BIPAP FiO2 35.0 Blood Gas Pressure 10 Support Blood Gas 15/5 IPAP/EPAP Ratio Blood Gas Notified MA Whom Blood Gas Notified 12/26/2018 7:45:23 Time PM Medications Medication Current Medications Albumin Human 50 ml @ 100 mls/hr WITH DIALYSIS PRN IV SBP < 90 DURING DIALYSIS; Start 12/26/18 at 23:00 Hydralazine HCl (Apresoline) 75 mg TID PO ; Start 12/27/18 at 09:00 Azithromycin (Zithromax) 500 mg ONCE ONCE PO ; Start 12/27/18 at 09:00; Stop 12/27/18 at 09:01 Azithromycin (Zithromax) 250 mg DAILY PO ; Start 12/28/18 at 09:00; Stop 12/31/18 at 09:01 Ceftriaxone Sodium 1000 mg/ Sodium Chloride 50 ml @ 100 mls/hr Q24H IVPB ; Start 12/27/18 at 09:00; Status UNV PAUL MARTINEZ MD Dec 27, 2018 08:47
--- NOTE | 2018-12-27 08:48 | CONS ---
Assessment/Plan Assessment/Plan Assessment/Plan (Daily) 1. ESRD 2. CHF/Vol overload persists, will hd again 3. Respir infection with pleural effusion noted, I asked ID to see (Dr. Mendosa) 4. HBP 5. Anemia Consultation Date/Type/Reason Admit Date/Time Dec 26, 2018 at 19:46 Initial Consult Date 12/27/18 Date/Time of Note DATE: 12/27/18 TIME: 08:45 Detailed Summary Respiratory: cough (is moderate with green mucus per ), shortness of breath Cardiovascular: No chest pain Gastrointestinal: no complaints Genitourinary: no complaints Exam/Review of Systems Exam Vitals Vital Signs Date Temp Pulse Resp B/P (MAP) Pulse Ox O2 O2 Flow FiO2 Time Delivery Rate 12/27/18 79 08:20 12/27/18 100.2 18 150/62 92 Nasal 07:31 (91) Cannula 12/27/18 2.0 01:32 12/26/18 35 19:41 Intake and Output 12/26/18 12/26/18 12/27/18 1515:00 23:00 07:00 OutputOutput Total 2400 ml BalanceBalance -2400 ml Neck: jvd Respiratory: other (rales and rhonhci bilat) Cardiovascular: regular rate and rhythm; No S3 Gastrointestinal: soft Extremities: No edema Results Result Diagram: 12/26/18 1830 12/26/18 1830 Results 24hrs Laboratory Tests Test 12/26/18 18:14 12/26/18 18:30 12/26/18 21:00 12/27/18 07:25 Hepatitis B NEGATIVE Surface Antigen White Blood Count 12.6 #H Pending Red Blood Count 3.10 L Pending Hemoglobin 9.9 L Pending Hematocrit 30.7 L Pending Mean Corpuscular 99.0 Pending Volume Mean Corpuscular 31.9 Pending Hemoglobin Mean Corpuscular 32.2 Pending Hemoglobin Concent Red Cell 14.1 Pending Distribution Width Platelet Count 186 # Pending Mean Platelet 9.2 Pending Volume Immature 0.900 H Granulocytes % Neutrophils % 87.3 H Lymphocytes % 2.7 L Monocytes % 7.4 Eosinophils % 1.1 Basophils % 0.6 Nucleated Red 0.0 Blood Cells % Immature 0.110 H Granulocytes # Neutrophils # 11.0 H Lymphocytes # 0.3 L Monocytes # 0.9 Eosinophils # 0.1 Basophils # 0.1 Nucleated Red 0.0 Blood Cells # Sodium Level 140 Potassium Level 4.2 Chloride Level 92 L Carbon Dioxide 34 H Level Anion Gap 14 H Blood Urea 19 Nitrogen Creatinine 3.44 H Est Glomerular Filtrat Rate mL/min Glucose Level 107 Calcium Level 9.7 Total Bilirubin 0.1 L Direct Bilirubin 0.00 Indirect Bilirubin 0.1 Aspartate Amino 34 Transf (AST/SGOT) Alanine < 6 L Aminotransferase ( ALT/SGPT) Alkaline 166 H Phosphatase Troponin I 0.045 Total Protein 9.6 H Albumin 4.8 Globulin 4.80 H Albumin/Globulin 1.00 Ratio Blood Gas Specimen Blood arterial Source Arterial Blood 12/26/2018 7:30:29 Date Drawn PM Arterial Blood pH 7.502 H (Temp corrected) Arterial Blood 40.9 pCO2 (Temp correct) Arterial Blood pO2 105.3 H (Temp corrected) Arterial Blood 31.3 H HCO3 Arterial Blood 7.5 H Base Excess Arterial Blood 97.7 Oxygen Saturation Abhi Test ACCEPTAB Arterial Blood Gas Right Radial Puncture Site Arterial 1.0 Blood Carboxyhemog lobin Arterial Blood 0.1 Methemoglobin Blood Gas A-a O2 96.7 H Differential Oxyhemoglobin 96.6 Percent Blood Gas 37.0 Temperature Blood Gas 14.0 Respiration Rate Blood Gas Actual 23 Respiration Rate Blood Gas Modality MASK - BIPAP FiO2 35.0 Blood Gas Pressure 10 Support Blood Gas 15/5 IPAP/EPAP Ratio Blood Gas Notified ND Whom Blood Gas Notified 12/26/2018 7:45:23 Time PM Medications Medication Current Medications Albumin Human 50 ml @ 100 mls/hr WITH DIALYSIS PRN IV SBP < 90 DURING DIALYSIS; Start 12/26/18 at 23:00 Hydralazine HCl (Apresoline) 75 mg TID PO ; Start 12/27/18 at 09:00 Azithromycin (Zithromax) 500 mg ONCE ONCE PO ; Start 12/27/18 at 09:00; Stop 12/27/18 at 09:01 Azithromycin (Zithromax) 250 mg DAILY PO ; Start 12/28/18 at 09:00; Stop 12/31/18 at 09:01 Ceftriaxone Sodium 1000 mg/ Sodium Chloride 50 ml @ 100 mls/hr Q24H IVPB ; Start 12/27/18 at 09:00; Status UNV RONNIE VASQUEZ MD Dec 27, 2018 08:48
[2018-12-27] MEDS ORDERED: AZITHROMYCIN 250 MG TAB PO ONE (09:00)
[2018-12-27] MEDS: LEVOTHYROXINE 75 MCG TAB PO SCH (09:52)
[2018-12-27] MEDS: PANTOPRAZOLE (EC) 40 MG TAB PO SCH (09:52)
[2018-12-27] MEDS: SERTRALINE 50 MG TAB PO SCH (09:52)
[2018-12-27] MEDS: MULTIVIT/CA CARB/B CMPLX/FA TAB PO SCH (09:52)
[2018-12-27] MEDS: LOSARTAN 50 MG TAB PO SCH ×2 (09:53→20:31)
[2018-12-27] MEDS: NIFEdipine (XL) 60 MG TAB PO SCH (09:53)
[2018-12-27] MEDS: LINAGLIPTIN 5 MG TABLET PO SCH (09:53)
[2018-12-27] MEDS ORDERED: GLUCOSE GEL 15 GRAM TUBE PO PRN ×2 (10:00)
[2018-12-27] MEDS: ACETAMINOPHEN 325 MG TAB PO PRN (10:00)
[2018-12-27] MEDS ORDERED: DEXTROSE 50% 50 ML SYRINGE IV PRN ×2 (10:00)
[2018-12-27] MEDS ORDERED: GLUCOSE GEL 15 GRAM TUBE BUCCAL PRN (10:00)
[2018-12-27] MEDS ORDERED: GLUCAGON 1 MG INJ IM PRN (10:00)
[2018-12-27] MEDS: CEFTRIAXONE 1,000 MG in SOD CHLORIDE 0.9% 50 ML IVPB SCH (11:04)
[2018-12-27] MEDS ORDERED: INSULIN ASPART [NOVOLOG] 3 ML PEN SC SCH (11:20)
[2018-12-27] MEDS: Insulin NOVOLOG SS MILD Algorithm (NPO/TPN/ENTERAL FEEDS) SC SCH ×2 (12:15→17:25)
--- NOTE | 2018-12-27 14:12 | CONS ---
Assessment/Plan Assessment/Plan Hospital Course (Demo Recall) - Dyspnea- likely volume overload vs. infectious. agree with therapeutic/diagnostic thoracentesis and fluid mgmt with iHD with renal/ bp difficult to control, will titrate meds - Hypertension- difficult to control, avoid atenolol given chb with medication in past. c - Chronic diastolic HF-as above - ESRD on iHD - CAD- dense calcification non CT scan - DM2-difficult to control Recommendations:= - cont iHD - cont nifedipine inc - cont hydralazine 75mg po q8h - cont clonidine - titrate bp meds - thoracentesis pending - echo when resp more stable Consultation Date/Type/Reason Admit Date/Time Dec 26, 2018 at 19:46 Date of Consultation: Dec 27, 2018 Type of Consult Cardiology Reason for Consultation SOB Requesting Provider: IGNACIO WILLIS MD Date/Time of Note DATE: 12/27/18 TIME: 14:08 Hx of Present Illness 73 y.o. with h/o malignant htn, esrd on ihd, previous chb 2/2 beta blockers presents for progressive servin x 1 week. per family/pt, has been going to regular iHD sessions, notices increase dyspnea at rest and exertion. + orthopnea, no edema, palpitations, cp. no syncope. pt denies fevers, chills, sweats. admitted to [facility] for [facility], but still sob after. cxr showed pleural effusion, plan for thoracentesis pt states. tele reviewed nsr no events. all other systems negative Past Medical History End-stage renal disease, on dialysis, diabetes with complications, hypertension, hyperlipidemia, duodenal ulcer, congestive heart failure, anemia, hypothyroidism, anxiety, GERD. temporary heart block do to beta blockers Past Surgical History duodenal ulcer ectopic temp ppm (no permanent pacer placed) Family History Significant Family History: no pertinent family hx Social History Alcohol Use: none Smoking Status: Never smoker Drug Use: none Home Meds Reported Medications Insulin Lispro (Humalog) 100 Unit/1 Ml Cartridge, 0 SQ SLIDING SCALE, EA 12/26/18 Insulin Detemir (Levemir Flextouch) 100 Unit/1 Ml Insuln.pen, 6 UNIT SQ DAILY, EA 12/26/18 Atorvastatin Calcium* (Atorvastatin Calcium*) 20 Mg Tablet, 20 MG PO QHS, #30 TAB 12/26/18 Doxazosin Mesylate* (Doxazosin Mesylate*) 2 Mg Tablet, 6 MG PO HS, TAB 12/26/18 Hydralazine Hcl* (Hydralazine Hcl*) 50 Mg Tab, 75 MG PO TID, #90 TAB 12/26/18 Losartan Potassium* (Losartan Potassium*) 50 Mg Tablet, 50 MG PO BID, TAB 12/26/18 Sitagliptin* (Januvia*) 25 Mg Tablet, 25 MG PO DAILY, #30 TAB 12/26/18 Sertraline Hcl* (Sertraline Hcl*) 50 Mg Tablet, 50 MG PO DAILY, #30 TAB 12/26/18 Nifedipine* (Nifedipine ER*) 30 Mg Tablet.sa, 30 MG PO QPM, TAB.SA 12/26/18 Nifedipine* (Nifedipine ER*) 60 Mg Tablet.sa, 60 MG PO QAM, TAB.SA 12/26/18 Pantoprazole* (Pantoprazole*) 40 Mg Tablet.dr, 40 MG PO DAILY, TAB 12/26/18 Levothyroxine Sodium* (Levothyroxine Sodium*) 75 Mcg Tablet, 75 MCG PO BEFORE BREAKFAST, #30 TAB 12/26/18 Clonidine Patch (CLONIDINE PATCH) 0.3 Mg/24 Hr Patch, 1 PATCH.WK TD Q7D, #4 PATCH.WK 12/26/18 Discontinued Reported Medications Atorvastatin Calcium* (Atorvastatin Calcium*) 20 Mg Tablet, 20 MG PO QHS, #30 TAB 08/22/18 Insulin Lispro (Humalog Kwikpen U-100) 100 Unit/1 Ml Insuln.pen, 0 SQ SLIDING SCALE, EA 05/30/18 Insulin Detemir (Levemir Flextouch) 100 Unit/1 Ml Insuln.pen, 6 UNIT SQ DAILY, EA 05/30/18 Sitagliptin* (Januvia*) 25 Mg Tablet, 25 MG PO DAILY, #30 TAB 05/30/18 Sertraline Hcl* (Sertraline Hcl*) 50 Mg Tablet, 50 MG PO DAILY, #30 TAB 05/30/18 Levothyroxine Sodium* (Levothyroxine Sodium*) 75 Mcg Tablet, 75 MCG PO BEFORE BREAKFAST, #30 TAB 05/30/18 Pantoprazole* (Pantoprazole*) 40 Mg Tablet.dr, 40 MG PO AC BREAKFAST, TAB 05/30/18 Discontinued Scripts Nifedipine (Procardia Xl) 30 Mg Tab.er.24, 30 MG PO QPM for 30 Days, #30 TAB Prov:IGNACIO WILLIS MD 09/04/18 Nifedipine (Procardia Xl) 60 Mg Tab.er.24, 60 MG PO DAILY for 30 Days, #30 TAB Prov:IGNACIO WILLIS MD 09/04/18 Losartan Potassium* (Cozaar*) 50 Mg Tablet, 50 MG PO BID for 30 Days, #60 TAB Prov:IGNACIO WILLIS MD 09/04/18 Hydralazine Hcl* (Hydralazine Hcl*) 25 Mg Tab, 75 MG PO Q8 for 30 Days, #90 TAB Prov:IGNACIO WILLIS MD 09/04/18 Doxazosin Mesylate* (Cardura*) 2 Mg Tablet, 6 MG PO HS for 30 Days, #90 TAB Prov:IGNACIO WILLIS MD 09/04/18 Clonidine Patch (CLONIDINE PATCH) 0.2 Mg/24 Hr Patch, 1 PATCH TRANSDERM Q7D for 30 Days, #4 Prov:IGNACIO WILLIS MD 09/04/18 Medications Current Medications Albumin Human 50 ml @ 100 mls/hr WITH DIALYSIS PRN IV SBP < 90 DURING DIALYSIS; Start 12/26/18 at 23:00 Hydralazine HCl (Apresoline) 75 mg TID PO Last administered on 12/27/18at 08:42; Admin Dose 75 MG; Start 12/27/18 at 09:00 Azithromycin (Zithromax) 250 mg DAILY PO ; Start 12/28/18 at 09:00; Stop 12/31/18 at 09:01 Ceftriaxone Sodium 1000 mg/ Sodium Chloride 50 ml @ 100 mls/hr Q24H IVPB Last administered on 12/27/18at 11:04; Admin Dose 100 MLS/HR; Start 12/27/18 at 11:00 Acetaminophen (Tylenol Tab) 650 mg Q6H PRN PO MILD PAIN(1-3)OR ELEVATED TEMP [place] st administered on 12/27/18at 10:00; Admin Dose 650 MG; Start 12/27/18 at 09:00 Atorvastatin Calcium (Lipitor) 20 mg QHS PO ; Start 12/27/18 at 21:00 Clonidine HCl (Catapres-Tts 3 Patch) 0.3 patch Q7D TRANSDERM ; Start 12/27/18 at 11:00 Doxazosin Mesylate (Cardura) 6 mg HS PO ; Start 12/27/18 at 21:00 Insulin Detemir (Levemir) 6 units HS SC ; Start 12/27/18 at 21:00 Levothyroxine Sodium (Synthroid) 75 mcg BEFORE BREAKFAST PO Last administered on 12/27/18 09:52; Admin Dose 75 MCG; Start 12/27/18 at 09:30 Losartan Potassium (Cozaar) 50 mg BID PO Last administered on 12/27/18 09:53; Admin Dose 50 MG; Start 12/27/18 at 09:30 Nifedipine (Procardia Xl) 30 mg QPM PO ; Start 12/27/18 at 21:00 Nifedipine (Procardia Xl) 60 mg QAM PO Last administered on 12/27/18 09:53; Admin Dose 60 MG; Start 12/27/18 at 09:30 Pantoprazole (Protonix Tab) 40 mg DAILY@0600 PO Last administered on 12/27/18 09:52; Admin Dose 40 MG; Start 12/27/18 at 09:30 Sertraline HCl (Zoloft) 50 mg DAILY PO Last administered on 12/27/18 09:52; Admin Dose 50 MG; Start 12/27/18 at 09:30 Epoetin Vince (Epogen (Esrd)) 10,000 units MoWeFr@17 SC ; Start 12/27/18 at 17:00 Multivit/Ca Carb/ B Cmplx/FA/Prenat (Praveena-Bonifacio) 1 tab DAILY PO Last a dministered on 12/27/18 09:52; Admin Dose 1 TAB; Start 12/27/18 at 09:30 Diagnostic Test (Pha) (Accu-Chek) 1 ea 02 XX ; Start 12/28/18 at 02:00 Linagliptin (Tradjenta) 5 mg DAILY PO Last administered on 12/27/18 09:53; Admin Dose 5 MG; Start 12/27/18 at 09:30 Miscellaneous Information 1 ea NOTE XX ; Start 12/27/18 at 10:00 Glucose (Glutose) 15 gm Q15M PRN PO DECREASED GLUCOSE; Start 12/27/18 at 10:00 Glucose (Glutose) 22.5 gm Q15M PRN PO DECREASED GLUCOSE; Start 12/27/18 at 10:00 Dextrose (D50w Syringe) 25 ml Q15M PRN IV DECREASED GLUCOSE; Start 12/27/18 at 10:00 Dextrose (D50w Syringe) 50 ml Q15M PRN IV DECREASED GLUCOSE; Start 12/27/18 at 10:00 Glucagon (Glucagen) 1 mg Q15M PRN IM DECREASED GLUCOSE; Start 12/27/18 at 10:00 Glucose (Glutose) 15 gm Q15M PRN BUCCAL DECREASED GLUCOSE; Start 12/27/18 at 10:00 Insulin Aspart (Novolog Insulin Pen) (Adult SC Insulin - Mild Algorithm)... AC MEALS SC Last administered on 12/27/18at 12:15; Admin Dose 1 UNIT; Start 12/27/18 at 11:20 Allergies: Coded Allergies: No Known Allergy (Unverified , 12/26/18) Exam/Review of Systems Exam Vitals Vital Signs Date Temp Pulse Resp B/P (MAP) Pulse Ox O2 O2 Flow FiO2 Time Delivery Rate 12/27/18 71 12:20 12/27/18 99.1 22 133/63 95 Nasal 11:11 (86) Cannula 12/27/18 2.0 09:54 12/26/18 35 19:41 Intake and Output 12/26/18 12/26/18 12/27/18 1414:59 22:59 06:59 OutputOutput Total 2400 ml BalanceBalance -2400 ml Exam Constitutional: alert, oriented Psych: no complaints Head: atraumatic, normocephalic Eyes: nl conjunctiva ENMT: mucosa pink and moist Neck: non-tender, supple, No jvd Respiratory: crackles with decreased ls R ase Cardiovascular: nl pulses, regular rate and rhythm, systolic murmur, No irregular rhythm Gastrointestinal: soft Musculoskeletal: nl extremities to inspection Extremities: normal pulses Neurological: [employer] II-XII intact Skin: nl turgor Results Result Diagram: 12/27/18 0725 12/27/18 0725 Results 24hrs Laboratory Tests Test 12/26/18 18:14 12/26/18 18:30 12/26/18 21:00 12/27/18 07:25 Hepatitis B NEGATIVE Surface Antigen White Blood Count 12.6 #H 11.5 H Red Blood Count 3.10 L 3.05 L Hemoglobin 9.9 L 9.7 L Hematocrit 30.7 L 30.5 L Mean Corpuscular 99.0 100.0 Volume Mean Corpuscular 31.9 31.8 Hemoglobin Mean Corpuscular 32.2 31.8 L Hemoglobin Concent Red Cell 14.1 13.8 Distribution Width Platelet Count 186 # 213 Mean Platelet 9.2 9.2 Volume Immature 0.900 H 0.600 H Granulocytes % Neutrophils % 87.3 H 83.7 H Lymphocytes % 2.7 L 4.3 L Monocytes % 7.4 9.4 Eosinophils % 1.1 1.5 Basophils % 0.6 0.5 Nucleated Red 0.0 0.0 Blood Cells % Immature 0.110 H 0.070 H Granulocytes # Neutrophils # 11.0 H 9.6 H Lymphocytes # 0.3 L 0.5 L Monocytes # 0.9 1.1 H Eosinophils # 0.1 0.2 Basophils # 0.1 0.1 Nucleated Red 0.0 0.0 Blood Cells # Sodium Level 140 141 Potassium Level 4.2 4.7 Chloride Level 92 L 94 L Carbon Dioxide 34 H 32 H Level Anion Gap 14 H 15 H Blood Urea 19 27 H Nitrogen Creatinine 3.44 H 4.88 #H Est Glomerular Filtrat Rate mL/min Glucose Level 107 86 Calcium Level 9.7 9.4 Total Bilirubin 0.1 L Direct Bilirubin 0.00 Indirect Bilirubin 0.1 Aspartate Amino 34 Transf (AST/SGOT) Alanine < 6 L Aminotransferase ( ALT/SGPT) Alkaline 166 H Phosphatase Troponin I 0.045 Total Protein 9.6 H Albumin 4.8 Globulin 4.80 H Albumin/Globulin 1.00 Ratio Blood Gas Specimen Blood arterial Source Arterial Blood 12/26/2018 7:30:29 Date Drawn PM Arterial Blood pH 7.502 H (Temp corrected) Arterial Blood 40.9 pCO2 (Temp correct) Arterial Blood pO2 105.3 H (Temp corrected) Arterial Blood 31.3 H HCO3 Arterial Blood 7.5 H Base Excess Arterial Blood 97.7 Oxygen Saturation Abhi Test ACCEPTAB Arterial Blood Gas Right Radial Puncture Site Arterial 1.0 Blood Carboxyhemog lobin Arterial Blood 0.1 Methemoglobin Blood Gas A-a O2 96.7 H Differential Oxyhemoglobin 96.6 Percent Blood Gas 37.0 Temperature Blood Gas 14.0 Respiration Rate Blood Gas Actual 23 Respiration Rate Blood Gas Modality MASK - BIPAP FiO2 35.0 Blood Gas Pressure 10 Support Blood Gas 15/5 IPAP/EPAP Ratio Blood Gas Notified CHRIS Whom Blood Gas Notified 12/26/2018 7:45:23 Time PM Phosphorus Level 3.8 Iron Level 21 L Total Iron Binding 166 L Capacity Percent Iron 13 L Saturation Ferritin 727.0 H Test 12/27/18 09:52 12/27/18 10:24 12/27/18 12:06 Bedside Glucose 120 144 Prothrombin Time 13.9 Prothrombin Time 1.1 Ratio INR International 1.06 Normalized Ratio Activated 47.[address] Time Imaging Imaging cxr report reviewed in emr Medications Medication Current Medications Albumin Human 50 ml @ 100 mls/hr WITH DIALYSIS PRN IV SBP < 90 DURING DIALYSIS; Start 12/26/18 at 23:00 Hydralazine HCl (Apresoline) 75 mg TID PO Last administered on 12/27/18at 08:42; Admin Dose 75 MG; Start 12/27/18 at 09:00 Azithromycin (Zithromax) 250 mg DAILY PO ; Start 12/28/18 at 09:00; Stop 12/31/18 at 09:01 Ceftriaxone Sodium 1000 mg/ Sodium Chloride 50 ml @ 100 mls/hr Q24H IVPB Last administered on 12/27/18at 11:04; Admin Dose 100 MLS/HR; Start 12/27/18 at 11:00 Acetaminophen (Tylenol Tab) 650 mg Q6H PRN PO MILD PAIN(1-3)OR ELEVATED TEMP Last administered on 12/27/18at 10:00; Admin Dose 650 MG; Start 12/27/18 at 09:00 Atorvastatin Calcium (Lipitor) 20 mg QHS PO ; Start 12/27/18 at 21:00 Clonidine HCl (Catapres-Tts 3 Patch) 0.3 patch Q7D TRANSDERM ; Start 12/27/18 at 11:00 Doxazosin Mesylate (Cardura) 6 mg HS PO ; Start 12/27/18 at 21:00 Insulin Detemir (Levemir) 6 units HS SC ; Start 12/27/18 at 21:00 Levothyroxine Sodium (Synthroid) 75 mcg BEFORE BREAKFAST PO Last administered on 12/27/18at 09:52; Admin Dose 75 MCG; Start 12/27/18 at 09:30 Losartan Potassium (Cozaar) 50 mg BID PO Last administered on 12/27/18at 09:53; Admin Dose 50 MG; Start 12/27/18 at 09:30 Nifedipine (Procardia Xl) 30 mg QPM PO ; Start 12/27/18 at 21:00 Nifedipine (Procardia Xl) 60 mg QAM PO Last administered on 12/27/18 09:53; Admin Dose 60 MG; Start 12/27/18 at 09:30 Pantoprazole (Protonix Tab) 40 mg DAILY@0600 PO Last administered on 12/27/18 09:52; Admin Dose 40 MG; Start 12/27/18 at 09:30 Sertraline HCl (Zoloft) 50 mg DAILY PO Last administered on 12/27/18 09:52; Admin Dose 50 MG; Start 12/27/18 at 09:30 Epoetin Vince (Epogen (Esrd)) 10,000 units MoWeFr@17 SC ; Start 12/27/18 at 17:00 Multivit/Ca Carb/ B Cmplx/FA/Prenat (Praveena-Bonifacio) 1 tab DAILY PO Last adminis tered on 12/27/18at 09:52; Admin Dose 1 TAB; Start 12/27/18 at 09:30 Diagnostic Test (Pha) (Accu-Chek) 1 ea 02 XX ; Start 12/28/18 at 02:00 Linagliptin (Tradjenta) 5 mg DAILY PO Last administered on 12/27/18 09:53; Admin Dose 5 MG; Start 12/27/18 at 09:30 Miscellaneous Information 1 ea NOTE XX ; Start 12/27/18 at 10:00 Glucose (Glutose) 15 gm Q15M PRN PO DECREASED GLUCOSE; Start 12/27/18 at 10:00 Glucose (Glutose) 22.5 gm Q15M PRN PO DECREASED GLUCOSE; Start 12/27/18 at 10:00 Dextrose (D50w Syringe) 25 ml Q15M PRN IV DECREASED GLUCOSE; Start 12/27/18 at 10:00 Dextrose (D50w Syringe) 50 ml Q15M PRN IV DECREASED GLUCOSE; Start 12/27/18 at 10:00 Glucagon (Glucagen) 1 mg Q15M PRN IM DECREASED GLUCOSE; Start 12/27/18 at 10:00 Glucose (Glutose) 15 gm Q15M PRN BUCCAL DECREASED GLUCOSE; Start 12/27/18 at 10:00 Insulin Aspart (Novolog Insulin Pen) (Adult SC Insulin - Mild Algorithm)... AC MEALS SC Last administered on 12/27/18at 12:15; Admin Dose 1 UNIT; Start 12/27/18 at 11:20 SINDI HERRON Dec 27, 2018 14:12
[2018-12-27] MEDS ORDERED: LIDOCAINE 1% (MPF) 5 ML VIAL ONE (14:36)
[2018-12-27] MEDS: ALBUMIN HUMAN 25% 50 ML IV PRN ×2 (15:50→15:52)
--- NOTE | 2018-12-27 16:35 | HP ---
DATE OF ADMISSION: 12/26/2018 CHIEF COMPLAINT: Cough and shortness of breath. HISTORY OF PRESENT ILLNESS: The patient is a 73-year-old female with history of end-stage omi l disease on dialysis, history of CHF, who has had about a 1-week history of cough initially nonprodu ctive with some mild dyspnea on exertion. The patient was felt to be fluid overloaded, which was att empted to be addressed during dialysis. In the last few days, the patient has had increasing cough d espite the dialysis measures with increasing shortness of breath. Cough is now productive. The patricia ent denies any shortness of breath, fever, chills or night sweats. She does have a chronic chest caryl n from postherpetic neuralgia on her right upper chest. The patient also complains of fatigue, darren rgy and decreased appetite. The patient was referred to the ER for further evaluation. In the ER, t he patient was found to be hypoxic with pulse ox in the 80s. The patient responded well to BiPAP. C hest x-ray showed right pleural effusion. The patient was admitted for further management. PAST MEDICAL HISTORY: End-stage renal disease, diabetes, hypertension, hypothyroidism, hyperlipidemi a, CHF, duodenal ulcer with recurrent GI bleed, postherpetic neuralgia. OPERATIONS: Duodenal ulcer, ectopic , chest wall abscess, AV fistula. MEDICATIONS: 1. Cardura 6 mg at bedtime. 2. Clonidine 0.2 weekly. 3. Procardia XL 60 mg q.a.m. and 30 mg q.p.m. 4. Hydralazine 75 mg q.8. 5. Zoloft 50 mg daily. 6. Losartan 50 mg b.i.d. 7. Protonix 40 mg daily. 8. Synthroid 75 mcg daily. 9. Lipitor 20 mg daily. 10. Levemir 6 units daily. 11. Januvia 25 mg daily. 12. Lispro sliding scale. ALLERGIES: BENAZEPRIL. SOCIAL HISTORY: The patient denies any tobacco or alcohol use. She is . FAMILY HISTORY: Father at 97. Mother at 62 from diabetes complications. Brother fro m alcohol related illness. Two sisters with diabetes. Two daughters are alive and well. REVIEW OF SYSTEMS: GENERAL: The patient reports fatigue and decreased appetite. No other general complaints. HEENT: The patient denies any congestion, rhinorrhea, sore throat or other HEENT complaints. RESPIRATORY: As noted in HPI. CARDIOVASCULAR: The patient with right-sided chest pain from postherpetic neuralgia. No other cardi ovascular complaints. GASTROINTESTINAL: The patient denies abdominal pain, nausea, vomiting, bright red blood per rectum, melena or other GI symptoms. GENITOURINARY: The patient makes very little urine. Denies any dysuria. No other change in urinary symptoms. NEUROLOGIC: The patient denies any numbness, tingling, weakness or other focal neurologic symptoms. PHYSICAL EXAMINATION: VITAL SIGNS: Temperature 99.1, pulse 71, blood pressure 133/63, pulse ox 95% on 2 liters nasal cannu la. GENERAL APPEARANCE: This is a mildly ill appearing female in no acute distress. HEENT: Normocephalic, atraumatic. Sclerae are anicteric. Oropharynx is clear. NECK: Supple. No adenopathy, no bruits. LUNGS: There are decreased breath sounds in the right base, otherwise clear. CARDIAC: Regular rate and rhythm. ABDOMEN: Bowel sounds are present. Abdomen is soft, nontender, nondistended. EXTREMITIES: Without cyanosis, clubbing or edema. NEUROLOGICAL: The patient a little bit lethargic but answers questions appropriately. She is hard o f hearing. Otherwise, no focal neurologic findings. LABORATORY DATA: White count is 12.6, hemoglobin 9.9, hematocrit 30.7, platelets 156. Sodium 140, p otassium 4.2, chloride 92, bicarbonate 34, BUN 19, creatinine 3.44, glucose 107. Alkaline phosphatas e 166. Troponin 0.045. DIAGNOSTIC DATA: Chest x-ray showed cardiomegaly, increased pulmonary vascularity, increased interst itial markings, bilateral airspace infiltrates, large right pleural effusion. IMPRESSION: 1. Acute exacerbation of congestive heart failure, possible pneumonia versus bronchitis. 2. Right pleural effusion. 3. Diabetes. 4. End-stage renal disease. 5. Hypertension. PLAN: Admit to telemetry. Renal, pulmonary and ID consult were appreciated. Cardiology consult pen diane. Dialysis per renal. Antibiotics per ID. Thoracentesis as per pulmonary. Continue outpatient meds. Monitor labs. Dictated By: IGNACIO SIMS/SAMIA Conf#: [id number] DID#: [id number] CC: RYDER CORBETT MD;*End*
[2018-12-27] MEDS: EPOETIN 10000 UNITS/1 ML INJ (ESRD) SC SCH (18:13)
[2018-12-27] MEDS: CLONIDINE 0.3 MG/24 HR PATCH TRANSDERM SCH (20:30)
[2018-12-27] MEDS: DOXAZOSIN 2 MG TAB PO SCH (20:31)
[2018-12-27] MEDS: NIFEdipine (XL) 30 MG TAB PO SCH (20:31)
[2018-12-27] MEDS: ATORVASTATIN 20 MG TAB PO SCH (20:31)
[2018-12-27] MEDS ORDERED: INSULIN DETEMIR [LEVEMIR] (100 UNITS/ML) SYG SC SCH (21:00)
[2018-12-28] VITALS (12 sets, daily range): BP systolic 128–141; BP diastolic 56–77; PULSE 55–77; RESP 18–20
[2018-12-28] MEDS: ACCU-CHEK XX SCH (02:09)
[2018-12-28] MEDS: PANTOPRAZOLE (EC) 40 MG TAB PO SCH (06:11)
[2018-12-28] MEDS: LEVOTHYROXINE 75 MCG TAB PO SCH (06:11)
--- NOTE | 2018-12-28 07:01 | CONS ---
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 labs are pending 2) DM 3) ESRD 4) HTN 5) chest wall wound infection no further drainage and no sign of redness at prior site Consultation Date/Type/Reason Admit Date/Time Dec 26, 2018 at 19:46 Initial Consult Date 12/27/18 Type of Consult ID Requesting Provider: IGNACIO WILLIS MD Date/Time of Note DATE: 12/28/18 TIME: 06:56 24 HR Interval Summary Free Text/Dictation pt's breathing is better has cough of brownish phlegm no N, V, D had 1L of serous fluid removed yesterday from R lung Exam/Review of Systems Exam Vitals Vital Signs Date Temp Pulse Resp B/P (MAP) Pulse Ox O2 O2 Flow FiO2 Time Delivery Rate 12/28/18 55 04:00 12/28/18 98.5 20 141/77 95 Nasal 03:26 (98) Cannula 12/28/18 2.0 02:51 12/26/18 35 19:41 Intake and Output 12/27/18 12/27/18 12/28/18 1515:00 23:00 07:00 IntakeIntake Total 680 ml 480 ml OutputOutput Total 3200 ml BalanceBalance -2520 ml 480 ml Constitutional: alert Eyes: nl sclera Respiratory: other (crackles at L base and decreased BS at R base) Cardiovascular: regular rate and rhythm Gastrointestinal: soft, non-tender Results Result Diagram: 12/27/18 0725 12/27/18 0725 Results 24hrs Laboratory Tests Test 12/27/18 07:25 12/27/18 09:52 12/27/18 10:24 12/27/18 12:06 White Blood Count 11.5 H Red Blood Count 3.05 L Hemoglobin 9.7 L Hematocrit 30.5 L Mean Corpuscular Volume 100.0 Mean Corpuscular 31.8 Hemoglobin Mean Corpuscular 31.8 L Hemoglobin Concent Red Cell Distribution 13.8 Width Platelet Count 213 Mean Platelet Volume 9.2 Immature Granulocytes % 0.600 H Neutrophils % 83.7 H Lymphocytes % 4.3 L Monocytes % 9.4 Eosinophils % 1.5 Basophils % 0.5 Nucleated Red Blood 0.0 Cells % Immature Granulocytes # 0.070 H Neutrophils # 9.6 H Lymphocytes # 0.5 L Monocytes # 1.1 H Eosinophils # 0.2 Basophils # 0.1 Nucleated Red Blood 0.0 Cells # Sodium Level 141 Potassium Level 4.7 Chloride Level 94 L Carbon Dioxide Level 32 H Anion Gap 15 H Blood Urea Nitrogen 27 H Creatinine 4.88 #H Est Glomerular Filtrat Rate mL/min Glucose Level 86 Calcium Level 9.4 Phosphorus Level 3.8 Iron Level 21 L Total Iron Binding 166 L Capacity Percent Iron Saturation 13 L Ferritin 727.0 H Bedside Glucose 120 144 Prothrombin Time 13.9 Prothrombin Time Ratio 1.1 INR International 1.06 Normalized Ratio Activated 47.0 H Partial Thromboplast Time Test 12/27/18 17:23 12/27/18 20:28 12/28/18 02:04 Bedside Glucose 120 204 107 Medications Medication Current Medications Albumin Human 50 ml @ 100 mls/hr WITH DIALYSIS PRN IV SBP < 90 DURING DIALYSIS Last administered on 12/27/18 15:52; Admin Dose 100 MLS/HR; Start 12/26/18 at 23:00 Hydralazine HCl (Apresoline) 75 mg TID PO Last administered on 12/27/18 20:32; Admin Dose 75 MG; Start 12/27/18 at 09:00 Azithromycin (Zithromax) 250 mg DAILY PO ; Start 12/28/18 at 09:00; Stop 12/31/18 at 09:01 Ceftriaxone Sodium 1000 mg/ Sodium Chloride 50 ml @ 100 mls/hr Q24H IVPB Last administered on 12/27/18 11:04; Admin Dose 100 MLS/HR; Start 12/27/18 at 11:00 Acetaminophen (Tylenol Tab) 650 mg Q6H PRN PO MILD PAIN(1-3)OR ELEVATED TEMP Last administered on 12/27/18 10:00; Admin Dose 650 MG; Start 12/27/18 at 09:00 Atorvastatin Calcium (Lipitor) 20 mg QHS PO Last administered on 12/27/18 20:31; Admin Dose 20 MG; Start 12/27/18 at 21:00 Clonidine HCl (Catapres-Tts 3 Patch) 0.3 patch Q7D TRANSDERM Last administered on 12/27/18 20:30; Admin Dose 0.3 PATCH; Start 12/27/18 at 11:00 Doxazosin Mesylate (Cardura) 6 mg HS PO Last administered on 12/27/18 20:31; Admin Dose 6 MG; Start 12/27/18 at 21:00 Insulin Detemir (Levemir) 6 units HS SC Last administered on 12/27/18 20:43; Admin Dose 6 UNITS; Start 12/27/18 at 21:00 Levothyroxine Sodium (Synthroid) 75 mcg BEFORE BREAKFAST PO Last administered on 12/28/18 06:11; Admin Dose 75 MCG; Start 12/27/18 at 09:30 Losartan Potassium (Cozaar) 50 mg BID PO Last administered on 12/27/18 20:31; Admin Dose 50 MG; Start 12/27/18 at 09:30 Nifedipine (Procardia Xl) 30 mg QPM PO Last administered on 12/27/18 20:31; Admin Dose 30 MG; Start 12/27/18 at 21:00 Nifedipine (Procardia Xl) 60 mg QAM PO Last administered on 12/27/18 09:53; Admin Dose 60 MG; Start 12/27/18 at 09:30 Pantoprazole (Protonix Tab) 40 mg DAILY@0600 PO Last administered on 12/28/18 06:11; Admin Dose 40 MG; Start 12/27/18 at 09:30 Sertraline HCl (Zoloft) 50 mg DAILY PO Last administered on 12/27/18 09:52; Ad min Dose 50 MG; Start 12/27/18 at 09:30 Epoetin Vince (Epogen (Esrd)) 10,000 units MoWeFr@17 SC Last administered on 12/27/18 18:13; Admin Dose 10,000 UNITS; Start 12/27/18 at 17:00 Multivit/Ca Carb/ B Cmplx/FA/Prenat (Praveena-Bonifacio) 1 tab DAILY PO Last administered on 12/27/18 09:52; Admin Dose 1 TAB; Start 12/27/18 at 09:30 Diagnostic Test (Pha) (Accu-Chek) 1 ea 02 XX Last administered on 12/28/18at 02 :09; Admin Dose 1 EA; Start 12/28/18 at 02:00 Linagliptin (Tradjenta) 5 mg DAILY PO Last administered on 12/27/18at 09:53; Admin Dose 5 MG; Start 12/27/18 at 09:30 Miscellaneous Information 1 ea NOTE XX ; Start 12/27/18 at 10:00 Glucose (Glutose) 15 gm Q15M PRN PO DECREASED GLUCOSE; Start 12/27/18 at 10:00 Glucose (Glutose) 22.5 gm Q15M PRN PO DECREASED GLUCOSE; Start 12/27/18 at 10:00 Dextrose (D50w Syringe) 25 ml Q15M PRN IV DECREASED GLUCOSE; Start 12/27/18 at 10:00 Dextrose (D50w Syringe) 50 ml Q15M PRN IV DECREASED GLUCOSE; Start 12/27/18 at 10:00 Glucagon (Glucagen) 1 mg Q15M PRN IM DECREASED GLUCOSE; Start 12/27/18 at 10:00 Glucose (Glutose) 15 gm Q15M PRN BUCCAL DECREASED GLUCOSE; Start 12/27/18 at 10:00 Insulin Aspart (Novolog Insulin Pen) (Adult SC Insulin - Mild Algorithm)... AC MEALS SC Last administered on 12/27/18at 12:15; Admin Dose 1 UNIT; Start 12/27/18 at 11:20 PAUL MARTINEZ MD Dec 28, 2018 07:01
[2018-12-28] MEDS: Insulin NOVOLOG SS MILD Algorithm (NPO/TPN/ENTERAL FEEDS) SC SCH ×3 (07:25→17:12)
[2018-12-28] MEDS: AZITHROMYCIN 250 MG TAB PO SCH (08:31)
[2018-12-28] MEDS: MULTIVIT/CA CARB/B CMPLX/FA TAB PO SCH (08:31)
[2018-12-28] MEDS: LOSARTAN 50 MG TAB PO SCH ×2 (08:32→20:47)
[2018-12-28] MEDS: SERTRALINE 50 MG TAB PO SCH (08:33)
[2018-12-28] MEDS: LINAGLIPTIN 5 MG TABLET PO SCH (08:33)
[2018-12-28] MEDS: NIFEdipine (XL) 60 MG TAB PO SCH (08:33)
--- NOTE | 2018-12-28 11:20 | CONS ---
Consult Date/Type/Reason Admit Date/Time Dec 26, 2018 at 19:46 Initial Consult Date 12/27/18 Type of Consult Pulmonary Requesting Provider: IGNACIO WILLIS MD Date/Time of Note DATE: 12/28/18 TIME: 11:17 Subjective Remains stable post thoracentesis. improved cxr Objective Vital Signs Date Temp Pulse Resp B/P (MAP) Pulse Ox O2 O2 Flow FiO2 Time Delivery Rate 12/28/18 98.2 67 18 132/60 92 11:14 (84) 12/28/18 Nasal 03:26 Cannula 12/28/18 2.0 02:51 12/26/18 35 19:41 Intake and Output 12/27/18 12/27/18 12/28/18 1515:00 23:00 07:00 IntakeIntake Total 680 ml 480 ml OutputOutput Total 3200 ml BalanceBalance -2520 ml 480 ml Results/Medications Result Diagram: 12/28/18 0637 12/27/18 0725 Results 24 hrs Laboratory Tests Test 12/27/18 12:06 12/27/18 17:23 12/27/18 20:28 12/28/18 02:04 Bedside Glucose 144 120 204 107 Test 12/28/18 06:37 12/28/18 08:20 12/28/18 08:37 12/28/18 08:48 White Blood Count 10.2 Red Blood Count 3.02 L Hemoglobin 9.5 L Hematocrit 29.8 L Mean Corpuscular Volume 98.7 Mean Corpuscular 31.5 Hemoglobin Mean Corpuscular 31.9 L Hemoglobin Concent Red Cell Distribution 13.5 Width Platelet Count 232 Mean Platelet Volume 9.0 Immature Granulocytes % 0.800 H Neutrophils % 79.0 H Lymphocytes % 7.3 L Monocytes % 9.5 Eosinophils % 2.9 Basophils % 0.5 Nucleated Red Blood 0.0 Cells % Immature Granulocytes # 0.080 H Neutrophils # 8.1 H Lymphocytes # 0.8 Monocytes # 1.0 H Eosinophils # 0.3 Basophils # 0.1 Nucleated Red Blood 0.0 Cells # Bedside Glucose 42 *L 51 L 100 Test 12/28/18 09:04 Bedside Glucose 128 Medications Current Medications Albumin Human 50 ml @ 100 mls/hr WITH DIALYSIS PRN IV SBP < 90 DURING DIALYSIS Last administered on 12/27/18at 15:52; Admin Dose 100 MLS/HR; Start 12/26/18 at 23:00 Hydralazine HCl (Apresoline) 75 mg TID PO Last administered on 12/28/18 08:32; Admin Dose 75 MG; Start 12/27/18 at 09:00 Azithromycin (Zithromax) 250 mg DAILY PO Last administered on 12/28/18 08:31; Admin Dose 250 MG; Start 12/28/18 at 09:00; Stop 12/31/18 at 09:01 Ceftriaxone Sodium 1000 mg/ Sodium Chloride 50 ml @ 100 mls/hr Q24H IVPB Last administered on 12/27/18 11:04; Admin Dose 100 MLS/HR; Start 12/27/18 at 11:00 Acetaminophen (Tylenol Tab) 650 mg Q6H PRN PO MILD PAIN(1-3)OR ELEVATED TEMP Last administered on 12/27/18 10:00; Admin Dose 650 MG; Start 12/27/18 at 09:00 Atorvastatin Calcium (Lipitor) 20 mg QHS PO Last administered on 12/27/18 2 0:31; Admin Dose 20 MG; Start 12/27/18 at 21:00 Clonidine HCl (Catapres-Tts 3 Patch) 0.3 patch Q7D TRANSDERM Last administered on 12/27/18 20:30; Admin Dose 0.3 PATCH; Start 12/27/18 at 11:00 Doxazosin Mesylate (Cardura) 6 mg HS PO Last administered on 12/27/18 20:31; Admin Dose 6 MG; Start 12/27/18 at 21:00 Insulin Detemir (Levemir) 6 units HS SC Last administered on 12/27/18 20:43; Admin Dose 6 UNITS; Start 12/27/18 at 21:00 Levothyroxine Sodium (Synthroid) 75 mcg BEFORE BREAKFAST PO Last administered on 12/28/18 06:11; Admin Dose 75 MCG; Start 12/27/18 at 09:30 Losartan Potassium (Cozaar) 50 mg BID PO Last administered on 12/28/18 08:32; Admin Dose 50 MG; Start 12/27/18 at 09:30 Nifedipine (Procardia Xl) 30 mg QPM PO Last administered on 12/27/18 20:31; Admin Dose 30 MG; Start 12/27/18 at 21:00 Nifedipine (Procardia Xl) 60 mg QAM PO Last administered on 12/28/18 08:33; Admin Dose 60 MG; Start 12/27/18 at 09:30 Pantoprazole (Protonix Tab) 40 mg DAILY@0600 PO Last administered on 12/28/18 06:11; Admin Dose 40 MG; Start 12/27/18 at 09:30 Sertraline HCl (Zoloft) 50 mg DAILY PO Last administered on 12/28/18 08:33; Admin Dose 50 MG; Start 12/27/18 at 09:30 Epoetin Vince (Epogen (Esrd)) 10,000 units MoWeFr@17 SC Last administered on 12/27/18 18:13; Admin Dose 10,000 UNITS; Start 12/27/18 at 17:00 Multivit/Ca Carb/ B Cmplx/FA/Prenat (Praveena-Bonifacio) 1 tab DAILY PO Last administered on 12/28/18 08:31; Admin Dose 1 TAB; Start 12/27/18 at 09:30 Diagnostic Test (Pha) (Accu-Chek) 1 ea 02 XX Last administered on 12/28/18 02:09; Admin Dose 1 EA; Start 12/28/18 at 02:00 Linagliptin (Tradjenta) 5 mg DAILY PO Last administered on 12/27/18 09:53; Admin Dose 5 MG; Start 12/27/18 at 09:30 Miscellaneous Information 1 ea NOTE XX ; Start 12/27/18 at 10:00 Glucose (Glutose) 15 gm Q15M PRN PO DECREASED GLUCOSE; Start 12/27/18 at 10:00 Glucose (Glutose) 22.5 gm Q15M PRN PO DECREASED GLUCOSE; Start 12/27/18 at 10:00 Dextrose (D50w Syringe) 25 ml Q15M PRN IV DECREASED GLUCOSE; Start 12/27/18 at 10:00 Dextrose (D50w Syringe) 50 ml Q15M PRN IV DECREASED GLUCOSE; Start 12/27/18 at 10:00 Glucagon (Glucagen) 1 mg Q15M PRN IM DECREASED GLUCOSE; Start 12/27/18 at 10:00 Glucose (Glutose) 15 gm Q15M PRN BUCCAL DECREASED GLUCOSE Last administered on 12/28/18at 08:24; Admin Dose 15 GM; Start 12/27/18 at 10:00 Insulin Aspart (Novolog Insulin Pen) (Adult SC Insulin - Mild Algorithm)... AC MEALS SC Last administered on 12/27/18at 12:15; Admin Dose 1 UNIT; Start 12/27/18 at 11:20 Assessment/Plan Hospital Course (Demo Recall) Assessment 1. Right pleural effusion, possibly secondary to ESRF 2. ESRF on HD 3. Hx DM Plan; 1. Encourage OOB 2. HD per renal 3. Aspiration precautions RYDER CORBETT MD, [facility] Dec 28, 2018 11:20
[2018-12-28] MEDS: CEFTRIAXONE 1,000 MG in SOD CHLORIDE 0.9% 50 ML IVPB SCH (11:36)
--- NOTE | 2018-12-28 12:24 | CONS ---
Assessment/Plan Assessment/Plan Assessment/Plan (Daily) 1. CKD to have next HD tomm 2. HBP, controlled 3. CHF resolving 4. URI, Id note rev 5. Anemia is stable 6. Cognition has improved Consultation Date/Type/Reason Admit Date/Time Dec 26, 2018 at 19:46 Initial Consult Date 12/27/18 Requesting Provider: IGNACIO WILLIS MD Date/Time of Note DATE: 12/28/18 TIME: 12:22 Detailed Summary Respiratory: cough (is mild), shortness of breath (is less) Cardiovascular: No chest pain Gastrointestinal: no complaints Genitourinary: no complaints Exam/Review of Systems Exam Vitals Vital Signs Date Temp Pulse Resp B/P (MAP) Pulse Ox O2 O2 Flow FiO2 Time Delivery Rate 12/28/18 98.2 67 18 132/60 92 11:14 (84) 12/28/18 Nasal 03:26 Cannula 12/28/18 2.0 02:51 12/26/18 35 19:41 Intake and Output 12/27/18 12/27/18 12/28/18 1515:00 23:00 07:00 IntakeIntake Total 680 ml 480 ml OutputOutput Total 3200 ml BalanceBalance -2520 ml 480 ml Neck: No jvd Respiratory: diminished breath sounds (less rales then yesterday and no wheezing) Gastrointestinal: soft Extremities: No edema Results Result Diagram: 12/28/18 0637 12/27/18 0725 Results 24hrs Laboratory Tests Test 12/27/18 17:23 12/27/18 20:28 12/28/18 02:04 12/28/18 06:37 Bedside Glucose 120 204 107 White Blood Count 10.2 Red Blood Count 3.02 L Hemoglobin 9.5 L Hematocrit 29.8 L Mean Corpuscular Volume 98.7 Mean Corpuscular 31.5 Hemoglobin Mean Corpuscular 31.9 L Hemoglobin Concent Red Cell Distribution 13.5 Width Platelet Count 232 Mean Platelet Volume 9.0 Immature Granulocytes % 0.800 H Neutrophils % 79.0 H Lymphocytes % 7.3 L Monocytes % 9.5 Eosinophils % 2.9 Basophils % 0.5 Nucleated Red Blood 0.0 Cells % Immature Granulocytes # 0.080 H Neutrophils # 8.1 H Lymphocytes # 0.8 Monocytes # 1.0 H Eosinophils # 0.3 Basophils # 0.1 Nucleated Red Blood 0.0 Cells # Test 12/28/18 08:20 12/28/18 08:37 12/28/18 08:48 12/28/18 09:04 Bedside Glucose 42 *L 51 L 100 128 Test 12/28/18 11:39 Bedside Glucose 157 Medications Medication Current Medications Albumin Human 50 ml @ 100 mls/hr WITH DIALYSIS PRN IV SBP < 90 DURING DIALYSIS Last administered on 12/27/18 15:52; Admin Dose 100 MLS/HR; Start 12/26/18 at 2 3:00 Hydralazine HCl (Apresoline) 75 mg TID PO Last administered on 12/28/18 08:32; Admin Dose 75 MG; Start 12/27/18 at 09:00 Azithromycin (Zithromax) 250 mg DAILY PO Last administered on 12/28/18 08:31; Admin Dose 250 MG; Start 12/28/18 at 09:00; Stop 12/31/18 at 09:01 Ceftriaxone Sodium 1000 mg/ Sodium Chloride 50 ml @ 100 mls/hr Q24H IVPB Last administered on 12/28/18 11:36; Admin Dose 100 MLS/HR; Start 12/27/18 at 11:00 Acetaminophen (Tylenol Tab) 650 mg Q6H PRN PO MILD PAIN(1-3)OR ELEVATED TEMP Last administered on 12/27/18 10:00; Admin Dose 650 MG; Start 12/27/18 at 09:00 Atorvastatin Calcium (Lipitor) 20 mg QHS PO Last administered on 12/27/18 20:31; Admin Dose 20 MG; Start 12/27/18 at 21:00 Clonidine HCl (Catapres-Tts 3 Patch) 0.3 patch Q7D TRANSDERM Last administered on 12/27/18 20:30; Admin Dose 0.3 PATCH; Start 12/27/18 at 11:00 Doxazosin Mesylate (Cardura) 6 mg HS PO Last administered on 12/27/18 20:31; Admin Dose 6 MG; Start 12/27/18 at 21:00 Insulin Detemir (Levemir) 6 units HS SC Last administered on 12/27/18 20:43; Admin Dose 6 UNITS; Start 12/27/18 at 21:00 Levothyroxine Sodium (Synthroid) 75 mcg BEFORE BREAKFAST PO Last administered on 12/28/18 06:11; Admin Dose 75 MCG; Start 12/27/18 at 09:30 Losartan Potassium (Cozaar) 50 mg BID PO Last administered on 12/28/18 08:32; Admin Dose 50 MG; Start 12/27/18 at 09:30 Nifedipine (Procardia Xl) 30 mg QPM PO Last administered on 12/27/18 20:31; Admin Dose 30 MG; Start 12/27/18 at 21:00 Nifedipine (Procardia Xl) 60 mg QAM PO Last administered on 12/28/18 08:33; Admin Dose 60 MG; Start 12/27/18 at 09:30 Pantoprazole (Protonix Tab) 40 mg DAILY@0600 PO Last administered on 12/28/18 06:11; Admin Dose 40 MG; Start 12/27/18 at 09:30 Sertraline HCl (Zoloft) 50 mg DAILY PO Last administered on 12/28/18 08:33; Admin Dose 50 MG; Start 12/27/18 at 09:30 Epoetin Vince (Epogen (Esrd)) 10,000 units MoWeFr@17 SC Last administered on 12/27/18 18:13; Admin Dose 10,000 UNITS; Start 12/27/18 at 17:00 Multivit/Ca Carb/ B Cmplx/FA/Prenat (Praveena-Bonifacio) 1 tab DAILY PO Last administered on 12/28/18 08:31; Admin Dose 1 TAB; Start 12/27/18 at 09:30 Diagnostic Test (Pha) (Accu-Chek) 1 ea 02 XX Last administered on 12/28/18at 02:09; Admin Dose 1 EA; Start 12/28/18 at 02:00 Linagliptin (Tradjenta) 5 mg DAILY PO Last administered on 12/27/18 09:53; Admin Dose 5 MG; Start 12/27/18 at 09:30 Miscellaneous Information 1 ea NOTE XX ; Start 12/27/18 at 10:00 Glucose (Glutose) 15 gm Q15M PRN PO DECREASED GLUCOSE; Start 12/27/18 at 10:00 Glucose (Glutose) 22.5 gm Q15M PRN PO DECREASED GLUCOSE; Start 12/27/18 at 10:00 Dextrose (D50w Syringe) 25 ml Q15M PRN IV DECREASED GLUCOSE; Start 12/27/18 at 10:00 Dextrose (D50w Syringe) 50 ml Q15M PRN IV DECREASED GLUCOSE; Start 12/27/18 at 10:00 Glucagon (Glucagen) 1 mg Q15M PRN IM DECREASED GLUCOSE; Start 12/27/18 at 10:00 Glucose (Glutose) 15 gm Q15M PRN BUCCAL DECREASED GLUCOSE Last administered on 12/28/18 08:24; Admin Dose 15 GM; Start 12/27/18 at 10:00 Insulin Aspart (Novolog Insulin Pen) (Adult SC Insulin - Mild Algorithm)... AC MEALS SC Last administered on 12/27/18at 12:15; Admin Dose 1 UNIT; Start 12/27/18 at 11:20 RONNIE VASQUEZ MD Dec 28, 2018 12:24
--- NOTE | 2018-12-28 13:25 | PN ---
Date/Time of Note Date/Time of Note DATE: 12/28/18 TIME: 13:18 Assessment/Plan VTE Prophylaxis Risk score (from Ns)>0 risk: 3 SCD applied (from Ns): No SCD contraindicated: other Pharmacological prophylaxis: NA/contraindicated Pharm contraindication: renal impairment Lines/Catheters [facility] Mid Line Urinary Cath still in place: No Assessment/Plan Assessment/Plan A: acute exacerbation of chf pneumonia rt pleural effusion ESRD DM with hypoglycemia HTN P: decrease levemir cont abx per ID dialysis per renal cont current rx monitor labs Result Diagram: 12/28/18 0637 12/27/18 0725 Results 24hrs Laboratory Tests Test 12/27/18 17:23 12/27/18 20:28 12/28/18 02:04 12/28/18 06:37 Bedside Glucose 120 204 107 White Blood Count 10.2 Red Blood Count 3.02 L Hemoglobin 9.5 L Hematocrit 29.8 L Mean Corpuscular Volume 98.7 Mean Corpuscular 31.5 Hemoglobin Mean Corpuscular 31.9 L Hemoglobin Concent Red Cell Distribution 13.5 Width Platelet Count 232 Mean Platelet Volume 9.0 Immature Granulocytes % 0.800 H Neutrophils % 79.0 H Lymphocytes % 7.3 L Monocytes % 9.5 Eosinophils % 2.9 Basophils % 0.5 Nucleated Red Blood 0.0 Cells % Immature Granulocytes # 0.080 H Neutrophils # 8.1 H Lymphocytes # 0.8 Monocytes # 1.0 H Eosinophils # 0.3 Basophils # 0.1 Nucleated Red Blood 0.0 Cells # Test 12/28/18 08:20 12/28/18 08:37 12/28/18 08:48 12/28/18 09:04 Bedside Glucose 42 *L 51 L 100 128 Test 12/28/18 11:39 Bedside Glucose 157 Subjective 24 Hr Interval Summary Free Text/Dictation Renal, ID, pulmonary and cardiology consults appreciated. Pt had thoracentesis yesterday of 1l serous fluid. Pt feeling better today, but episode of hypoglycemia in 40s this am. Pt states appetite still decreased, but improving. Has some pain from air mattress awaiting switch back to regular mattress. Exam/Review of Systems Exam Vitals Vital Signs Date Temp Pulse Resp B/P (MAP) Pulse Ox O2 O2 Flow FiO2 Time Delivery Rate 12/28/18 61 12:00 12/28/18 98.2 18 132/60 92 11:14 (84) 12/28/18 Nasal 03:26 Cannula 12/28/18 2.0 02:51 12/26/18 35 19:41 Intake and Output 12/27/18 12/27/18 12/28/18 1515:00 23:00 07:00 IntakeIntake Total 680 ml 480 ml OutputOutput Total 3200 ml BalanceBalance -2520 ml 480 ml Exam gen- nad, mild ill appearing lungs- decreased bs bases heart- RRR abd- +BS, soft, min tenderness over bruise in LLQ ext- no edema Results Results 24hrs Laboratory Tests Test 12/27/18 17:23 12/27/18 20:28 12/28/18 02:04 12/28/18 06:37 Bedside Glucose 120 204 107 White Blood Count 10.2 Red Blood Count 3.02 L Hemoglobin 9.5 L Hematocrit 29.8 L Mean Corpuscular Volume 98.7 Mean Corpuscular 31.5 Hemoglobin Mean Corpuscular 31.9 L Hemoglobin Concent Red Cell Distribution 13.5 Width Platelet Count 232 Mean Platelet Volume 9.0 Immature Granulocytes % 0.800 H Neutrophils % 79.0 H Lymphocytes % 7.3 L Monocytes % 9.5 Eosinophils % 2.9 Basophils % 0.5 Nucleated Red Blood 0.0 Cells % Immature Granulocytes # 0.080 H Neutrophils # 8.1 H Lymphocytes # 0.8 Monocytes # 1.0 H Eosinophils # 0.3 Basophils # 0.1 Nucleated Red Blood 0.0 Cells # Test 12/28/18 08:20 12/28/18 08:37 12/28/18 08:48 12/28/18 09:04 Bedside Glucose 42 *L 51 L 100 128 Test 12/28/18 11:39 Bedside Glucose 157 Medications Medication Current Medications Albumin Human 50 ml @ 100 mls/hr WITH DIALYSIS PRN IV SBP < 90 DURING DIALYSIS Last administered on 12/27/18at 15:52; Admin Dose 100 MLS/HR; Start 12/26/18 at 23:00 Hydralazine HCl (Apresoline) 75 mg TID PO Last administered on 12/28/18at 12:43; Admin Dose 75 MG; Start 12/27/18 at 09:00 Azithromycin (Zithromax) 250 mg DAILY PO Last administered on 12/28/18 08:31; Admin Dose 250 MG; Start 12/28/18 at 09:00; Stop 12/31/18 at 09:01 Ceftriaxone Sodium 1000 mg/ Sodium Chloride 50 ml @ 100 mls/hr Q24H IVPB Last administered on 12/28/18 11:36; Admin Dose 100 MLS/HR; Start 12/27/18 at 11:00 Acetaminophen (Tylenol Tab) 650 mg Q6H PRN PO MILD PAIN(1-3)OR ELEVATED TEMP Last administered on 12/27/18 10:00; Admin Dose 650 MG; Start 12/27/18 at 09:00 Atorvastatin Calcium (Lipitor) 20 mg QHS PO Last administered on 12/27/18 20:31; Admin Dose 20 MG; Start 12/27/18 at 21:00 Clonidine HCl (Catapres-Tts 3 Patch) 0.3 patch Q7D TRANSDERM Last administered on 12/27/18 20:30; Admin Dose 0.3 PATCH; Start 12/27/18 at 11:00 Doxazosin Mesylate (Cardura) 6 mg HS PO Last administered on 12/27/18 20:31; Admin Dose 6 MG; Start 12/27/18 at 21:00 Insulin Detemir (Levemir) 6 units HS SC Last administered on 12/27/18 20:43; Admin Dose 6 UNITS; Start 12/27/18 at 21:00 Levothyroxine Sodium (Synthroid) 75 mcg BEFORE BREAKFAST PO Last administered on 12/28/18 06:11; Admin Dose 75 MCG; Start 12/27/18 at 09:30 Losartan Potassium (Cozaar) 50 mg BID PO Last administered on 12/28/18 08:32; Admin Dose 50 MG; Start 12/27/18 at 09:30 Nifedipine (Procardia Xl) 30 mg QPM PO Last administered on 12/27/18 20:31; Admin Dose 30 MG; Start 12/27/18 at 21:00 Nifedipine (Procardia Xl) 60 mg QAM PO Last administered on 12/28/18 08:33; Admin Dose 60 MG; Start 12/27/18 at 09:30 Pantoprazole (Protonix Tab) 40 mg DAILY@0600 PO Last administered on 12/28/18 06:11; Admin Dose 40 MG; Start 12/27/18 at 09:30 Sertraline HCl (Zoloft) 50 mg DAILY PO Last administered on 12/28/18 08:33; Admin Dose 50 MG; Start 12/27/18 at 09:30 Epoetin Vince (Epogen (Esrd)) 10,000 units MoWeFr@17 SC Last administered on 12/27/18 18:13; Admin Dose 10,000 UNITS; Start 12/27/18 at 17:00 Multivit/Ca Carb/ B Cmplx/FA/Prenat (Praveena-Bonifacio) 1 tab DAILY PO Last administered on 12/28/18 08:31; Admin Dose 1 TAB; Start 12/27/18 at 09:30 Diagnostic Test (Pha) (Accu-Chek) 1 ea 02 XX Last administered on 12/28/18 02:09; Admin Dose 1 EA; Start 12/28/18 at 02:00 Linagliptin (Tradjenta) 5 mg DAILY PO Last administered on 12/27/18 09:53; Admin Dose 5 MG; Start 12/27/18 at 09:30 Miscellaneous Information 1 ea NOTE XX ; Start 12/27/18 at 10:00 Glucose (Glutose) 15 gm Q15M PRN PO DECREASED GLUCOSE; Start 12/27/18 at 10:00 Glucose (Glutose) 22.5 gm Q15M PRN PO DECREASED GLUCOSE; Start 12/27/18 at 10:00 Dextrose (D50w Syringe) 25 ml Q15M PRN IV DECREASED GLUCOSE; Start 12/27/18 at 10:00 Dextrose (D50w Syringe) 50 ml Q15M PRN IV DECREASED GLUCOSE; Start 12/27/18 at 10:00 Glucagon (Glucagen) 1 mg Q15M PRN IM DECREASED GLUCOSE; Start 12/27/18 at 10:00 Glucose (Glutose) 15 gm Q15M PRN BUCCAL DECREASED GLUCOSE Last administered on 12/28/18 08:24; Admin Dose 15 GM; Start 12/27/18 at 10:00 Insulin Aspart (Novolog Insulin Pen) (Adult SC Insulin - Mild Algorithm)... AC MEALS SC Last administered on 12/27/18 12:15; Admin Dose 1 UNIT; Start 12/27/18 at 11:20 Ferric Sodium Gluconate Complex 125 mg/Sodium Chloride 110 ml @ 110 mls/hr DAILY@1300 IVPB ; Start 12/28/18 at 13:00; Stop 01/01/19 at 13:59 IGNACIO WILLIS MD Dec 28, 2018 13:25
[2018-12-28] MEDS: SOD FERRIC GLUC COMPLX 125 MG in SOD CHLORIDE 0.9% 100 ML IVPB SCH (13:41)
[2018-12-28] MEDS: NIFEdipine (XL) 30 MG TAB PO SCH (20:48)
[2018-12-28] MEDS: DOXAZOSIN 2 MG TAB PO SCH (20:48)
[2018-12-28] MEDS: ATORVASTATIN 20 MG TAB PO SCH (20:48)
[2018-12-28] MEDS: INSULIN DETEMIR [LEVEMIR] (100 UNITS/ML) SYG SC SCH (21:03)
--- NOTE | 2018-12-28 22:52 | CONS ---
Assessment/Plan Assessment/Plan Hospital Course (Demo Recall) - Dyspnea- likely volume overload vs. infectious. therapeuticsp /diagnostic thoracentesis and fluid mgmt with iHD with renal/ bp difficult to control, will titrate meds - Hypertension- difficult to control, avoid atenolol given chb with medication in past. c - Chronic diastolic HF-as above - ESRD on iHD - CAD- dense calcification non CT scan - DM2-difficult to control Recommendations:= - cont iHD - cont nifedipine inc - cont hydralazine 75mg po q8h - cont clonidine - titrate bp meds - echo Consultation Date/Type/Reason Admit Date/Time Dec 26, 2018 at 19:46 Initial Consult Date 12/27/18 Type of Consult Cardiology Requesting Provider: IGNACIO WILLIS MD Date/Time of Note DATE: 12/28/18 TIME: 22:51 24 HR Interval Summary Free Text/Dictation sob improved post thoracentesis. no cp. no palptionations, dizziness tele reviewed nsr Detailed Summary Eyes: no complaints ENT: no complaints Respiratory: shortness of breath Cardiovascular: no complaints Gastrointestinal: no complaints Exam/Review of Systems Exam Vitals Vital Signs Date Temp Pulse Resp B/P (MAP) Pulse Ox O2 O2 Flow FiO2 Time Delivery Rate 12/28/18 98.0 68 18 132/60 98 20:08 (84) 12/28/18 Nasal 03:26 Cannula 12/28/18 2.0 02:51 12/26/18 35 19:41 Intake and Output 12/27/18 12/27/18 12/28/18 1515:00 23:00 07:00 IntakeIntake Total 680 ml 480 ml OutputOutput Total 3200 ml BalanceBalance -2520 ml 480 ml Exam Constitutional: alert, oriented Psych: no complaints Head: atraumatic, normocephalic Eyes: nl conjunctiva ENMT: mucosa pink and moist Neck: non-tender, supple, No jvd Respiratory: crackles mild barrera Cardiovascular: nl pulses, regular rate and rhythm, systolic murmur, No irregular rhythm Gastrointestinal: soft Musculoskeletal: nl extremities to inspection Extremities: normal pulses Neurological: P[employer] II-XII intact Skin: nl turgor Results Result Diagram: 12/28/18 0637 12/27/18 0725 Results 24hrs Laboratory Tests Test 12/28/18 02:04 12/28/18 06:37 12/28/18 08:20 12/28/18 08:37 Bedside Glucose 107 42 *L 51 L White Blood Count 10.2 Red Blood Count 3.02 L Hemoglobin 9.5 L Hematocrit 29.8 L Mean Corpuscular Volume 98.7 Mean Corpuscular 31.5 Hemoglobin Mean Corpuscular 31.9 L Hemoglobin Concent Red Cell Distribution 13.5 Width Platelet Count 232 Mean Platelet Volume 9.0 Immature Granulocytes % 0.800 H Neutrophils % 79.0 H Lymphocytes % 7.3 L Monocytes % 9.5 Eosinophils % 2.9 Basophils % 0.5 Nucleated Red Blood 0.0 Cells % Immature Granulocytes # 0.080 H Neutrophils # 8.1 H Lymphocytes # 0.8 Monocytes # 1.0 H Eosinophils # 0.3 Basophils # 0.1 Nucleated Red Blood 0.0 Cells # Test 12/28/18 08:48 12/28/18 09:04 12/28/18 11:39 12/28/18 17:05 Bedside Glucose 100 128 157 166 Test 12/28/18 20:45 Bedside Glucose 180 Imaging Imaging cxr image reports reviewed in emr Medications Medication Current Medications Albumin Human 50 ml @ 100 mls/hr WITH DIALYSIS PRN IV SBP < 90 DURING DIALYSIS Last administered on 12/27/18 15:52; Admin Dose 100 MLS/HR; Start 12/26/18 at 23:00 Hydralazine HCl (Apresoline) 75 mg TID PO Last administered on 12/28/18 21:06; Admin Dose 75 MG; Start 12/27/18 at 09:00 Azithromycin (Zithromax) 250 mg DAILY PO Last administered on 12/28/18 08:31; Admin Dose 250 MG; Start 12/28/18 at 09:00; Stop 12/31/18 at 09:01 Acetaminophen (Tylenol Tab) 650 mg Q6H PRN PO MILD PAIN(1-3)OR ELEVATED TEMP Last administered on 12/27/18at 10:00; Admin Dose 650 MG; Start 12/27/18 at 09:00 Atorvastatin Calcium (Lipitor) 20 mg QHS PO Last administered on 12/28/18at 20:48; Admin Dose 20 MG; Start 12/27/18 at 21:00 Clonidine HCl (Catapres-Tts 3 Patch) 0.3 patch Q7D TRANSDERM Last administered on 12/27/18 20:30; Admin Dose 0.3 PATCH; Start 12/27/18 at 11:00 Doxazosin Mesylate (Cardura) 6 mg HS PO Last administered on 12/28/18 20:48; Admin Dose 6 MG; Start 12/27/18 at 21:00 Levothyroxine Sodium (Synthroid) 75 mcg BEFORE BREAKFAST PO Last administered on 12/28/18 06:11; Admin Dose 75 MCG; Start 12/27/18 at 09:30 Losartan Potassium (Cozaar) 50 mg BID PO Last administered on 12/28/18 20:47; Admin Dose 50 MG; Start 12/27/18 at 09:30 Nifedipine (Procardia Xl) 30 mg QPM PO Last administered on 12/28/18 20:48; Admin Dose 30 MG; Start 12/27/18 at 21:00 Nifedipine (Procardia Xl) 60 mg QAM PO Last administered on 12/28/18 08:33; Admin Dose 60 MG; Start 12/27/18 at 09:30 Pantoprazole (Protonix Tab) 40 mg DAILY@0600 PO Last administered on 12/28/18 06:11; Admin Dose 40 MG; Start 12/27/18 at 09:30 Sertraline HCl (Zoloft) 50 mg DAILY PO Last administered on 12/28/18 08:33; Admin Dose 50 MG; Start 12/27/18 at 09:30 Epoetin Vince (Epogen (Esrd)) 10,000 units MoWeFr@17 SC Last administered on 12/27/18 18:13; Admin Dose 10,000 UNITS; Start 12/27/18 at 17:00 Multivit/Ca Carb/ B Cmplx/FA/Prenat (Praveena-Bonifacio) 1 tab DAILY PO Last administered on 12/28/18 08:31; Admin Dose 1 TAB; Start 12/27/18 at 09:30 Diagnostic Test (Pha) (Accu-Chek) 1 ea 02 XX Last administered on 12/28/18 02:09; Admin Dose 1 EA; Start 12/28/18 at 02:00 Linagliptin (Tradjenta) 5 mg DAILY PO Last administered on 12/27/18 09:53; Admin Dose 5 MG; Start 12/27/18 at 09:30 Miscellaneous Information 1 ea NOTE XX ; Start 12/27/18 at 10:00 Glucose (Glutose) 15 gm Q15M PRN PO DECREASED GLUCOSE; Start 12/27/18 at 10:00 Glucose (Glutose) 22.5 gm Q15M PRN PO DECREASED GLUCOSE; Start 12/27/18 at 10:00 Dextrose (D50w Syringe) 25 ml Q15M PRN IV DECREASED GLUCOSE; Start 12/27/18 at 10:00 Dextrose (D50w Syringe) 50 ml Q15M PRN IV DECREASED GLUCOSE; Start 12/27/18 at 10:00 Glucagon (Glucagen) 1 mg Q15M PRN IM DECREASED GLUCOSE; Start 12/27/18 at 10:00 Glucose (Glutose) 15 gm Q15M PRN BUCCAL DECREASED GLUCOSE Last administered on 12/28/18at 08:24; Admin Dose 15 GM; Start 12/27/18 at 10:00 Insulin Aspart (Novolog Insulin Pen) (Adult SC Insulin - Mild Algorithm)... AC MEALS SC Last administered on 12/28/18at 17:12; Admin Dose 1 UNIT; Start 12/27/18 at 11:20 Ferric Sodium Gluconate Complex 125 mg/Sodium Chloride 110 ml @ 110 mls/hr DAILY@1300 IVPB Last administered on 12/28/18at 13:41; Admin Dose 110 MLS/HR; Start 12/28/18 at 13:00; Stop 01/01/19 at 13:59 Insulin Detemir (Levemir) 4 units HS SC Last administered on 12/28/18at 21:03; Admin Dose 4 UNITS; Start 12/28/18 at 21:00 Ceftriaxone Sodium 50 ml @ 100 mls/hr Q24H IVPB ; Start 12/29/18 at 11:00 SINDI HERRON Dec 28, 2018 22:52
[2018-12-29] VITALS (25 sets, daily range): BP systolic 92–169; BP diastolic 40–71; PULSE 60–79; RESP 16–20
[2018-12-29] MEDS: ACCU-CHEK XX SCH (02:00)
[2018-12-29] MEDS: PANTOPRAZOLE (EC) 40 MG TAB PO SCH (06:06)
[2018-12-29] MEDS: LEVOTHYROXINE 75 MCG TAB PO SCH (06:06)
[2018-12-29] MEDS: Insulin NOVOLOG SS MILD Algorithm (NPO/TPN/ENTERAL FEEDS) SC SCH ×3 (07:25→17:22)
[2018-12-29] MEDS: AZITHROMYCIN 250 MG TAB PO SCH (08:17)
[2018-12-29] MEDS: NIFEdipine (XL) 60 MG TAB PO SCH (08:17)
[2018-12-29] MEDS: MULTIVIT/CA CARB/B CMPLX/FA TAB PO SCH (08:17)
[2018-12-29] MEDS: LOSARTAN 50 MG TAB PO SCH ×2 (08:17→21:21)
[2018-12-29] MEDS: LINAGLIPTIN 5 MG TABLET PO SCH (08:18)
[2018-12-29] MEDS: SERTRALINE 50 MG TAB PO SCH (08:18)
[2018-12-29] MEDS: ALBUMIN HUMAN 25% 50 ML IV PRN ×2 (10:28→11:06)
[2018-12-29] MEDS ORDERED: CEFTRIAXONE 1 GM/NS 50 ML IVPB SCH (11:00)
--- NOTE | 2018-12-29 11:04 | CONS ---
Consult Date/Type/Reason Admit Date/Time Dec 26, 2018 at 19:46 Initial Consult Date 12/27/18 Type of Consult Pulmonary Requesting Provider: IGNACIO WILLIS MD Date/Time of Note DATE: 12/29/18 TIME: 11:03 Subjective Having hemodialysis this morning no events overnight. Objective Vital Signs Date Temp Pulse Resp B/P (MAP) Pulse Ox O2 O2 Flow FiO2 Time Delivery Rate 12/29/18 65 10:25 12/29/18 20 117/44 98 Nasal 2.0 09:55 (68) Cannula 12/29/18 98.2 07:18 12/26/18 35 19:41 Intake and Output 12/28/18 12/28/18 12/29/18 1414:59 22:59 06:59 IntakeIntake Total 450 ml BalanceBalance 450 ml Exam GENERAL: Elderly appearing lady comfortable at rest no acute distress VITAL SIGNS: per chart NECK: Supple. No JVD or lymphadenopathy. CARDIAC EXAM: S1, S2. No added sounds or murmurs. CHEST: Diminished air entry bilaterally ABDOMEN: Soft, nontender. No guarding or rebound. EXTREMITIES: No cyanosis, clubbing or edema. NEUROLOGIC: Generalized weakness. No focal deficits. Results/Medications Result Diagram: 12/29/18 0649 12/29/18 0649 Results 24 hrs Laboratory Tests Test 12/28/18 11:39 12/28/18 17:05 12/28/18 20:45 12/29/18 06:49 Bedside Glucose 157 166 180 White Blood Count 10.5 Red Blood Count 3.04 L Hemoglobin 9.6 L Hematocrit 30.2 L Mean Corpuscular 99.3 Volume Mean Corpuscular 31.6 Hemoglobin Mean Corpuscular 31.8 L Hemoglobin Concent Red Cell Distribution 13.4 Width Platelet Count 247 Mean Platelet Volume 9.3 Immature Granulocytes 2.200 H % Neutrophils % 73.9 Lymphocytes % 8.4 L Monocytes % 10.4 Eosinophils % 4.4 Basophils % 0.7 Nucleated Red Blood 0.0 Cells % Immature Granulocytes 0.230 H # Neutrophils # 7.8 H Lymphocytes # 0.9 Monocytes # 1.1 H Eosinophils # 0.5 Basophils # 0.1 Nucleated Red Blood 0.0 Cells # Sodium Level 139 Potassium Level 5.7 H Chloride Level 96 L Carbon Dioxide Level 29 Anion Gap 14 H Blood Urea Nitrogen 58 #H Creatinine 7.03 #H Est Glomerular Filtrat Rate mL/min Glucose Level 118 Calcium Level 9.6 Phosphorus Level 3.5 Test 12/29/18 08:14 Bedside Glucose 141 Medications Current Medications Albumin Human 50 ml @ 100 mls/hr WITH DIALYSIS PRN IV SBP < 90 DURING DIALYSIS Last administered on 12/29/18 10:28; Admin Dose 100 MLS/HR; Start 12/26/18 at 23:00 Hydralazine HCl (Apresoline) 75 mg TID PO Last administered on 12/28/18 21:06; Admin Dose 75 MG; Start 12/27/18 at 09:00 Azithromycin (Zithromax) 250 mg DAILY PO Last administered on 12/29/18 08:17; Admin Dose 250 MG; Start 12/28/18 at 09:00; Stop 12/31/18 at 09:01 Acetaminophen (Tylenol Tab) 650 mg Q6H PRN PO MILD PAIN(1-3)OR ELEVATED TEMP Last administered on 12/27/18 10:00; Admin Dose 650 MG; Start 12/27/18 at 09:00 Atorvastatin Calcium (Lipitor) 20 mg QHS PO Last administered on 12/28/18 20:48; Admin Dose 20 MG; Start 12/27/18 at 21:00 Clonidine HCl (Catapres-Tts 3 Patch) 0.3 patch Q7D TRANSDERM Last administered on 12/27/18 20:30; Admin Dose 0.3 PATCH; Start 12/27/18 at 11:00 Doxazosin Mesylate (Cardura) 6 mg HS PO Last administered on 12/28/18 20:48; Admin Dose 6 MG; Start 12/27/18 at 21:00 Levothyroxine Sodium (Synthroid) 75 mcg BEFORE BREAKFAST PO Last administered on 12/29/18 06:06; Admin Dose 75 MCG; Start 12/27/18 at 09:30 Losartan Potassium (Cozaar) 50 mg BID PO Last administered on 12/28/18 20:47; Admin Dose 50 MG; Start 12/27/18 at 09:30 Nifedipine (Procardia Xl) 30 mg QPM PO Last administered on 12/28/18 20:48; Admin Dose 30 MG; Start 12/27/18 at 21:00 Nifedipine (Procardia Xl) 60 mg QAM PO Last administered on 12/28/18at 08:33; Admin Dose 60 MG; Start 12/27/18 at 09:30 Pantoprazole (Protonix Tab) 40 mg DAILY@0600 PO Last administered on 12/29/18at 06:06; Admin Dose 40 MG; Start 12/27/18 at 09:30 Sertraline HCl (Zoloft) 50 mg DAILY PO Last administered on 12/29/18 08:18; Admin Dose 50 MG; Start 12/27/18 at 09:30 Epoetin Vince (Epogen (Esrd)) 10,000 units MoWeFr@17 SC Last administered on 12/27/18at 18:13; Admin Dose 10,000 UNITS; Start 12/27/18 at 17:00 Multivit/Ca Carb/ B Cmplx/FA/Prenat (Praveena-Bonifacio) 1 tab DAILY PO Last administered on 12/29/18 08:17; Admin Dose 1 TAB; Start 12/27/18 at 09:30 Diagnostic Test (Pha) (Accu-Chek) 1 ea 02 XX Last administered on 12/28/18at 02:09; Admin Dose 1 EA; Start 12/28/18 at 02:00 Linagliptin (Tradjenta) 5 mg DAILY PO Last administered on 12/29/18 08:18; Admin Dose 5 MG; Start 12/27/18 at 09:30 Miscellaneous Information 1 ea NOTE XX ; Start 12/27/18 at 10:00 Glucose (Glutose) 15 gm Q15M PRN PO DECREASED GLUCOSE; Start 12/27/18 at 10:00 Glucose (Glutose) 22.5 gm Q15M PRN PO DECREASED GLUCOSE; Start 12/27/18 at 10:00 Dextrose (D50w Syringe) 25 ml Q15M PRN IV DECREASED GLUCOSE; Start 12/27/18 at 10:00 Dextrose (D50w Syringe) 50 ml Q15M PRN IV DECREASED GLUCOSE; Start 12/27/18 at 10:00 Glucagon (Glucagen) 1 mg Q15M PRN IM DECREASED GLUCOSE; Start 12/27/18 at 10:00 Glucose (Glutose) 15 gm Q15M PRN BUCCAL DECREASED GLUCOSE Last administered on 12/28/18at 08:24; Admin Dose 15 GM; Start 12/27/18 at 10:00 Insulin Aspart (Novolog Insulin Pen) (Adult SC Insulin - Mild Algorithm)... AC MEALS SC Last administered on 12/28/18at 17:12; Admin Dose 1 UNIT; Start 12/27/18 at 11:20 Ferric Sodium Gluconate Complex 125 mg/Sodium Chloride 110 ml @ 110 mls/hr DAILY@1300 IVPB Last administered on 12/28/18at 13:41; Admin Dose 110 MLS/HR; Start 12/28/18 at 13:00; Stop 01/01/19 at 13:59 Insulin Detemir (Levemir) 4 units HS SC Last administered on 12/28/18at 21:03; Admin Dose 4 UNITS; Start 12/28/18 at 21:00 Ceftriaxone Sodium 50 ml @ 100 mls/hr Q24H IVPB ; Start 12/29/18 at 11:00 Assessment/Plan Hospital Course (Demo Recall) Assessment 1. Right pleural effusion, possibly secondary to ESRF 2. ESRF on HD 3. Hx DM Plan; 1. Encourage OOB 2. HD per renal 2 L volume removal today. 3. Aspiration precautions 4. PT eval encourage out of bed 5. May require SNF placement Discussed with patient's at bedside RYDER CORBETT MD, [facility] Dec 29, 2018 11:04
--- NOTE | 2018-12-29 12:04 | PN ---
Date/Time of Note Date/Time of Note DATE: 12/29/18 TIME: 12:00 Assessment/Plan VTE Prophylaxis Risk score (from Ns)>0 risk: 4 SCD applied (from Ns): Yes Pharmacological prophylaxis: NA/contraindicated Pharm contraindication: renal impairment Lines/Catheters IV Catheter Type (from [facility]): Mid Line Urinary Cath still in place: No Assessment/Plan Assessment/Plan A: acute exacerbation of chf pleural effusion pneumonia ESRD DM HTN P: dialysis per renal abx per ID cont current rx Result Diagram: 12/29/18 0649 12/29/18 0649 Results 24hrs Laboratory Tests Test 12/28/18 17:05 12/28/18 20:45 12/29/18 06:49 12/29/18 08:14 Bedside Glucose 166 180 141 White Blood Count 10.5 Red Blood Count 3.04 L Hemoglobin 9.6 L Hematocrit 30.2 L Mean Corpuscular 99.3 Volume Mean Corpuscular 31.6 Hemoglobin Mean Corpuscular 31.8 L Hemoglobin Concent Red Cell Distribution 13.4 Width Platelet Count 247 Mean Platelet Volume 9.3 Immature Granulocytes 2.200 H % Neutrophils % 73.9 Lymphocytes % 8.4 L Monocytes % 10.4 Eosinophils % 4.4 Basophils % 0.7 Nucleated Red Blood 0.0 Cells % Immature Granulocytes 0.230 H # Neutrophils # 7.8 H Lymphocytes # 0.9 Monocytes # 1.1 H Eosinophils # 0.5 Basophils # 0.1 Nucleated Red Blood 0.0 Cells # Sodium Level 139 Potassium Level 5.7 H Chloride Level 96 L Carbon Dioxide Level 29 Anion Gap 14 H Blood Urea Nitrogen 58 #H Creatinine 7.03 #H Est Glomerular Filtrat Rate mL/min Glucose Level 118 Calcium Level 9.6 Phosphorus Level 3.5 Test 12/29/18 11:56 Bedside Glucose 173 Subjective 24 Hr Interval Summary Free Text/Dictation Pt getting dialysis. Feeling better, no sob. No hypoglycemia after insulin adjustment. Appetite improving. Exam/Review of Systems Exam Vitals Vital Signs Date Temp Pulse Resp B/P (MAP) Pulse Ox O2 O2 Flow FiO2 Time Delivery Rate 12/29/18 68 11:40 12/29/18 97.6 16 115/46 100 11:22 (69) 12/29/18 Nasal 2.0 09:55 Cannula 12/26/18 35 19:41 Intake and Output 12/28/18 12/28/18 12/29/18 1515:00 23:00 07:00 IntakeIntake Total 450 ml BalanceBalance 450 ml Exam gen- nad, notoxic. lungs- decreased bs bases heart- RRR abd- +BS, soft, nontender ext- no edema Results Results 24hrs Laboratory Tests Test 12/28/18 17:05 12/28/18 20:45 12/29/18 06:49 12/29/18 08:14 Bedside Glucose 166 180 141 White Blood Count 10.5 Red Blood Count 3.04 L Hemoglobin 9.6 L Hematocrit 30.2 L Mean Corpuscular 99.3 Volume Mean Corpuscular 31.6 Hemoglobin Mean Corpuscular 31.8 L Hemoglobin Concent Red Cell Distribution 13.4 Width Platelet Count 247 Mean Platelet Volume 9.3 Immature Granulocytes 2.200 H % Neutrophils % 73.9 Lymphocytes % 8.4 L Monocytes % 10.4 Eosinophils % 4.4 Basophils % 0.7 Nucleated Red Blood 0.0 Cells % Immature Granulocytes 0.230 H # Neutrophils # 7.8 H Lymphocytes # 0.9 Monocytes # 1.1 H Eosinophils # 0.5 Basophils # 0.1 Nucleated Red Blood 0.0 Cells # Sodium Level 139 Potassium Level 5.7 H Chloride Level 96 L Carbon Dioxide Level 29 Anion Gap 14 H Blood Urea Nitrogen 58 #H Creatinine 7.03 #H Est Glomerular Filtrat Rate mL/min Glucose Level 118 Calcium Level 9.6 Phosphorus Level 3.5 Test 12/29/18 11:56 Bedside Glucose 173 Medications Medication Current Medications Albumin Human 50 ml @ 100 mls/hr WITH DIALYSIS PRN IV SBP < 90 DURING DIALYSIS Last administered on 12/29/18at 11:06; Admin Dose 100 MLS/HR; Start 12/26/18 at 23:00 Hydralazine HCl (Apresoline) 75 mg TID PO Last administered on 12/28/18at 21:06; Admin Dose 75 MG; Start 12/27/18 at 09:00 Azithromycin (Zithromax) 250 mg DAILY PO Last administered on 12/29/18at 08:17; Admin Dose 250 MG; Start 12/28/18 at 09:00; Stop 12/31/18 at 09:01 Acetaminophen (Tylenol Tab) 650 mg Q6H PRN PO MILD PAIN(1-3)OR ELEVATED TEMP Last administered on 12/27/18 10:00; Admin Dose 650 MG; Start 12/27/18 at 09:00 Atorvastatin Calcium (Lipitor) 20 mg QHS PO Last administered on 12/28/18 20:48; Admin Dose 20 MG; Start 12/27/18 at 21:00 Clonidine HCl (Catapres-Tts 3 Patch) 0.3 patch Q7D TRANSDERM Last administered on 12/27/18 20:30; Admin Dose 0.3 PATCH; Start 12/27/18 at 11:00 Doxazosin Mesylate (Cardura) 6 mg HS PO Last administered on 12/28/18 20:48; Admin Dose 6 MG; Start 12/27/18 at 21:00 Levothyroxine Sodium (Synthroid) 75 mcg BEFORE BREAKFAST PO Last administered on 12/29/18 06:06; Admin Dose 75 MCG; Start 12/27/18 at 09:30 Losartan Potassium (Cozaar) 50 mg BID PO Last administered on 12/28/18 20:47; Admin Dose 50 MG; Start 12/27/18 at 09:30 Nifedipine (Procardia Xl) 30 mg QPM PO Last administered on 12/28/18 20:48; Admin Dose 30 MG; Start 12/27/18 at 21:00 Nifedipine (Procardia Xl) 60 mg QAM PO Last administered on 12/28/18 08:33; Admin Dose 60 MG; Start 12/27/18 at 09:30 Pantoprazole (Protonix Tab) 40 mg DAILY@0600 PO Last administered on 12/29/18 06:06; Admin Dose 40 MG; Start 12/27/18 at 09:30 Sertraline HCl (Zoloft) 50 mg DAILY PO Last administered on 12/29/18 08:18; Admin Dose 50 MG; Start 12/27/18 at 09:30 Epoetin Vince (Epogen (Esrd)) 10,000 units MoWeFr@17 SC Last administered on 12/27/18 18:13; Admin Dose 10,000 UNITS; Start 12/27/18 at 17:00 Multivit/Ca Carb/ B Cmplx/FA/Prenat (Praveena-Bonifacio) 1 tab DAILY PO Last administered on 12/29/18 08:17; Admin Dose 1 TAB; Start 12/27/18 at 09:30 Diagnostic Test (Pha) (Accu-Chek) 1 ea 02 XX Last administered on 12/28/18at 02:09; Admin Dose 1 EA; Start 12/28/18 at 02:00 Linagliptin (Tradjenta) 5 mg DAILY PO Last administered on 12/29/18 08:18; Admin Dose 5 MG; Start 12/27/18 at 09:30 Miscellaneous Information 1 ea NOTE XX ; Start 12/27/18 at 10:00 Glucose (Glutose) 15 gm Q15M PRN PO DECREASED GLUCOSE; Start 12/27/18 at 10:00 Glucose (Glutose) 22.5 gm Q15M PRN PO DECREASED GLUCOSE; Start 12/27/18 at 10:00 Dextrose (D50w Syringe) 25 ml Q15M PRN IV DECREASED GLUCOSE; Start 12/27/18 at 10:00 Dextrose (D50w Syringe) 50 ml Q15M PRN IV DECREASED GLUCOSE; Start 12/27/18 at 10:00 Glucagon (Glucagen) 1 mg Q15M PRN IM DECREASED GLUCOSE; Start 12/27/18 at 10:00 Glucose (Glutose) 15 gm Q15M PRN BUCCAL DECREASED GLUCOSE Last administered on 12/28/18 08:24; Admin Dose 15 GM; Start 12/27/18 at 10:00 Insulin Aspart (Novolog Insulin Pen) (Adult SC Insulin - Mild Algorithm)... AC MEALS SC Last administered on 12/28/18 17:12; Admin Dose 1 UNIT; Start 12/27/18 at 11:20 Ferric Sodium Gluconate Complex 125 mg/Sodium Chloride 110 ml @ 110 mls/hr DAILY@1300 IVPB Last administered on 12/28/18at 13:41; Admin Dose 110 MLS/HR; Start 12/28/18 at 13:00; Stop 01/01/19 at 13:59 Insulin Detemir (Levemir) 4 units HS SC Last administered on 12/28/18 21:03; Admin Dose 4 UNITS; Start 12/28/18 at 21:00 Ceftriaxone Sodium 50 ml @ 100 mls/hr Q24H IVPB ; Start 12/29/18 at 11:00 IGNACIO WILLIS MD Dec 29, 2018 12:04
[2018-12-29] MEDS: SOD FERRIC GLUC COMPLX 125 MG in SOD CHLORIDE 0.9% 100 ML IVPB SCH (13:27)
--- NOTE | 2018-12-29 13:55 | CONS ---
Assessment/Plan Assessment/Plan Assessment/Plan (Daily) 1. Upper respir infectin is improving as is chf 2. CKD, just completed hd 3. BP too "tight", I reduced adalat Consultation Date/Type/Reason Admit Date/Time Dec 26, 2018 at 19:46 Initial Consult Date 12/27/18 Requesting Provider: IGNACIO WILLIS MD Date/Time of Note DATE: 12/29/18 TIME: 13:53 Detailed Summary Respiratory: cough (is less as is sob) Cardiovascular: No chest pain Gastrointestinal: no complaints Genitourinary: no complaints Exam/Review of Systems Exam Vitals Vital Signs Date Temp Pulse Resp B/P (MAP) Pulse Ox O2 O2 Flow FiO2 Time Delivery Rate 12/29/18 68 13:00 12/29/18 18 115/42 99 Nasal 2.0 12:55 (66) Cannula 12/29/18 97.6 11:22 12/26/18 35 19:41 Intake and Output 12/28/18 12/28/18 12/29/18 1515:00 23:00 07:00 IntakeIntake Total 450 ml BalanceBalance 450 ml Neck: jvd (is less) Respiratory: diminished breath sounds (no rales or wheezing) Cardiovascular: regular rate and rhythm; No S3 Gastrointestinal: soft Extremities: No edema Results Result Diagram: 12/29/18 0649 12/29/18 0649 Results 24hrs Laboratory Tests Test 12/28/18 17:05 12/28/18 20:45 12/29/18 06:49 12/29/18 08:14 Bedside Glucose 166 180 141 White Blood Count 10.5 Red Blood Count 3.04 L Hemoglobin 9.6 L Hematocrit 30.2 L Mean Corpuscular 99.3 Volume Mean Corpuscular 31.6 Hemoglobin Mean Corpuscular 31.8 L Hemoglobin Concent Red Cell Distribution 13.4 Width Platelet Count 247 Mean Platelet Volume 9.3 Immature Granulocytes 2.200 H % Neutrophils % 73.9 Lymphocytes % 8.4 L Monocytes % 10.4 Eosinophils % 4.4 Basophils % 0.7 Nucleated Red Blood 0.0 Cells % Immature Granulocytes 0.230 H # Neutrophils # 7.8 H Lymphocytes # 0.9 Monocytes # 1.1 H Eosinophils # 0.5 Basophils # 0.1 Nucleated Red Blood 0.0 Cells # Sodium Level 139 Potassium Level 5.7 H Chloride Level 96 L Carbon Dioxide Level 29 Anion Gap 14 H Blood Urea Nitrogen 58 #H Creatinine 7.03 #H Est Glomerular Filtrat Rate mL/min Glucose Level 118 Calcium Level 9.6 Phosphorus Level 3.5 Test 12/29/18 11:56 Bedside Glucose 173 Medications Medication Current Medications Albumin Human 50 ml @ 100 mls/hr WITH DIALYSIS PRN IV SBP < 90 DURING DIALYSIS Last administered on 12/29/18 11:06; Admin Dose 100 MLS/HR; Start 12/26/18 at 23:00 Hydralazine HCl (Apresoline) 75 mg TID PO Last administered on 12/28/18 21:06; Admin Dose 75 MG; Start 12/27/18 at 09:00 Azithromycin (Zithromax) 250 mg DAILY PO Last administered on 12/29/18 08:17; Admin Dose 250 MG; Start 12/28/18 at 09:00; Stop 12/31/18 at 09:01 Acetaminophen (Tylenol Tab) 650 mg Q6H PRN PO MILD PAIN(1-3)OR ELEVATED TEMP Last administered on 12/27/18 10:00; Admin Dose 650 MG; Start 12/27/18 at 09:00 Atorvastatin Calcium (Lipitor) 20 mg QHS PO Last administered on 12/28/18 20:48; Admin Dose 20 MG; Start 12/27/18 at 21:00 Clonidine HCl (Catapres-Tts 3 Patch) 0.3 patch Q7D TRANSDERM Last administered on 12/27/18 20:30; Admin Dose 0.3 PATCH; Start 12/27/18 at 11:00 Doxazosin Mesylate (Cardura) 6 mg HS PO Last administered on 12/28/18 20:48; Admin Dose 6 MG; Start 12/27/18 at 21:00 Levothyroxine Sodium (Synthroid) 75 mcg BEFORE BREAKFAST PO Last administered on 12/29/18 06:06; Admin Dose 75 MCG; Start 12/27/18 at 09:30 Losartan Potassium (Cozaar) 50 mg BID PO Last administered on 12/28/18 20:47; Admin Dose 50 MG; Start 12/27/18 at 09:30 Nifedipine (Procardia Xl) 30 mg QPM PO Last administered on 12/28/18 20:48; Admin Dose 30 MG; Start 12/27/18 at 21:00 Nifedipine (Procardia Xl) 60 mg QAM PO Last administered on 12/28/18at 08:33; Admin Dose 60 MG; Start 12/27/18 at 09:30 Pantoprazole (Protonix Tab) 40 mg DAILY@0600 PO Last administered on 12/29/18 06:06; Admin Dose 40 MG; Start 12/27/18 at 09:30 Sertraline HCl (Zoloft) 50 mg DAILY PO Last administered on 12/29/18 08:18; Admin Dose 50 MG; Start 12/27/18 at 09:30 Epoetin Vince (Epogen (Esrd)) 10,000 units MoWeFr@17 SC Last administered on 12/27/18 18:13; Admin Dose 10,000 UNITS; Start 12/27/18 at 17:00 Multivit/Ca Carb/ B Cmplx/FA/Prenat (Praveena-Bonifacio) 1 tab DAILY PO Last administered on 12/29/18 08:17; Admin Dose 1 TAB; Start 12/27/18 at 09:30 Diagnostic Test (Pha) (Accu-Chek) 1 ea 02 XX Last administered on 12/28/18at 02:09; Admin Dose 1 EA; Start 12/28/18 at 02:00 Linagliptin (Tradjenta) 5 mg DAILY PO Last administered on 12/29/18 08:18; Admin Dose 5 MG; Start 12/27/18 at 09:30 Miscellaneous Information 1 ea NOTE XX ; Start 12/27/18 at 10:00 Glucose (Glutose) 15 gm Q15M PRN PO DECREASED GLUCOSE; Start 12/27/18 at 10:00 Glucose (Glutose) 22.5 gm Q15M PRN PO DECREASED GLUCOSE; Start 12/27/18 at 10:00 Dextrose (D50w Syringe) 25 ml Q15M PRN IV DECREASED GLUCOSE; Start 12/27/18 at 10:00 Dextrose (D50w Syringe) 50 ml Q15M PRN IV DECREASED GLUCOSE; Start 12/27/18 at 10:00 Glucagon (Glucagen) 1 mg Q15M PRN IM DECREASED GLUCOSE; Start 12/27/18 at 10:00 Glucose (Glutose) 15 gm Q15M PRN BUCCAL DECREASED GLUCOSE Last administered on 12/28/18at 08:24; Admin Dose 15 GM; Start 12/27/18 at 10:00 Insulin Aspart (Novolog Insulin Pen) (Adult SC Insulin - Mild Algorithm)... AC MEALS SC Last administered on 12/29/18at 12:23; Admin Dose 1 UNIT; Start 12/27/18 at 11:20 Ferric Sodium Gluconate Complex 125 mg/Sodium Chloride 110 ml @ 110 mls/hr DAILY@1300 IVPB Last administered on 12/29/18 13:27; Admin Dose 110 MLS/HR; Start 12/28/18 at 13:00; Stop 01/01/19 at 13:59 Insulin Detemir (Levemir) 4 units HS SC Last administered on 12/28/18 21:03; Admin Dose 4 UNITS; Start 12/28/18 at 21:00 Ceftriaxone Sodium 50 ml @ 100 mls/hr Q24H IVPB Last administered on 12/29/18 13:27; Admin Dose 100 MLS/HR; Start 12/29/18 at 11:00 RONNIE VASQUEZ MD Dec 29, 2018 13:55
[2018-12-29] MEDS: DOXAZOSIN 2 MG TAB PO SCH (21:00)
[2018-12-29] MEDS: ATORVASTATIN 20 MG TAB PO SCH (21:21)
[2018-12-29] MEDS: INSULIN DETEMIR [LEVEMIR] (100 UNITS/ML) SYG SC SCH (21:41)
[2018-12-30] VITALS (11 sets, daily range): BP systolic 138–211; BP diastolic 63–86; PULSE 67–81; RESP 17–18
[2018-12-30] MEDS: ACCU-CHEK XX SCH (02:00)
[2018-12-30] MEDS: PANTOPRAZOLE (EC) 40 MG TAB PO SCH (06:05)
[2018-12-30] MEDS: LEVOTHYROXINE 75 MCG TAB PO SCH (06:06)
[2018-12-30] MEDS: Insulin NOVOLOG SS MILD Algorithm (NPO/TPN/ENTERAL FEEDS) SC SCH ×3 (07:25→17:14)
--- NOTE | 2018-12-30 07:36 | CONS ---
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 labs are pending 12/30- h.flu in sputum, d/c ceftriaxone and will continue with azithro alone thru 01/04 2) DM 3) ESRD 4) HTN 5) chest wall wound infection no further drainage and no sign of redness at prior site Consultation Date/Type/Reason Admit Date/Time Dec 26, 2018 at 19:46 Initial Consult Date 12/27/18 Type of Consult ID Requesting Provider: IGNACIO WILLIS MD Date/Time of Note DATE: 12/30/18 TIME: 07:33 24 HR Interval Summary Free Text/Dictation cough is better no N, V, D Exam/Review of Systems Exam Vitals Vital Signs Date Temp Pulse Resp B/P (MAP) Pulse Ox O2 O2 Flow FiO2 Time Delivery Rate 12/30/18 99.2 71 17 211/86 99 07:26 (127) 12/29/18 Nasal 2.0 12:55 Cannula 12/26/18 35 19:41 Intake and Output 12/29/18 12/29/18 12/30/18 1515:00 23:00 07:00 IntakeIntake Total 850 ml 520 ml OutputOutput Total 2600 ml BalanceBalance -2600 ml 850 ml 520 ml Constitutional: alert Eyes: nl sclera ENMT: mucosa pink and moist Respiratory: clear to auscultation, diminished breath sounds Cardiovascular: regular rate and rhythm Gastrointestinal: soft, non-tender Results Result Diagram: 12/30/18 0554 12/29/18 0649 Results 24hrs Laboratory Tests Test 12/29/18 08:14 12/29/18 11:56 12/29/18 17:19 12/29/18 21:18 Bedside Glucose 141 173 285 H 153 Test 12/30/18 05:54 White Blood Count 9.3 Red Blood Count 3.08 L Hemoglobin 9.7 L Hematocrit 30.3 L Mean Corpuscular 98.4 Volume Mean Corpuscular 31.5 Hemoglobin Mean Corpuscular 32.0 Hemoglobin Concent Red Cell 13.2 Distribution Width Platelet Count 278 Mean Platelet Volume 9.1 Immature 3.500 H Granulocytes % Neutrophils % 72.5 Lymphocytes % 8.8 L Monocytes % 10.9 Eosinophils % 3.7 Basophils % 0.6 Nucleated Red Blood 0.2 H Cells % Immature 0.320 H Granulocytes # Neutrophils # 6.7 Lymphocytes # 0.8 Monocytes # 1.0 H Eosinophils # 0.3 Basophils # 0.1 Nucleated Red Blood 0.0 Cells # Medications Medication Current Medications Albumin Human 50 ml @ 100 mls/hr WITH DIALYSIS PRN IV SBP < 90 DURING DIALYSIS Last administered on 12/29/18 11:06; Admin Dose 100 MLS/HR; Start 12/26/18 at 23:00 Hydralazine HCl (Apresoline) 75 mg TID PO Last administered on 12/29/18 21:21; Admin Dose 75 MG; Start 12/27/18 at 09:00 Azithromycin (Zithromax) 250 mg DAILY PO Last administered on 12/29/18 08:17; Admin Dose 250 MG; Start 12/28/18 at 09:00; Stop 12/31/18 at 09:01 Acetaminophen (Tylenol Tab) 650 mg Q6H PRN PO MILD PAIN(1-3)OR ELEVATED TEMP [place] administered on 12/27/18 10:00; Admin Dose 650 MG; Start 12/27/18 at 09:00 Atorvastatin Calcium (Lipitor) 20 mg QHS PO Last administered on 12/29/18 21:21; Admin Dose 20 MG; Start 12/27/18 at 21:00 Clonidine HCl (Catapres-Tts 3 Patch) 0.3 patch Q7D TRANSDERM Last administered on 12/27/18 20:30; Admin Dose 0.3 PATCH; Start 12/27/18 at 11:00 Doxazosin Mesylate (Cardura) 6 mg HS PO Last administered on 12/28/18 20:48; Admin Dose 6 MG; Start 12/27/18 at 21:00 Levothyroxine Sodium (Synthroid) 75 mcg BEFORE BREAKFAST PO Last administered on 12/30/18 06:06; Admin Dose 75 MCG; Start 12/27/18 at 09:30 Losartan Potassium (Cozaar) 50 mg BID PO Last administered on 12/29/18 21:21; Admin Dose 50 MG; Start 12/27/18 at 09:30 Nifedipine (Procardia Xl) 60 mg QAM PO Last administered on 12/28/18 08:33; Admin Dose 60 MG; Start 12/27/18 at 09:30 Pantoprazole (Protonix Tab) 40 mg DAILY@0600 PO Last administered on 12/30/18 06:05; Admin Dose 40 MG; Start 12/27/18 at 09:30 Sertraline HCl (Zoloft) 50 mg DAILY PO Last administered on 12/29/18 08:18; Admin Dose 50 MG; Start 12/27/18 at 09:30 Epoetin Vince (Epogen (Esrd)) 10,000 units MoWeFr@17 SC Last administered on 12/27/18 18:13; Admin Dose 10,000 UNITS; Start 12/27/18 at 17:00 Multivit/Ca Carb/ B Cmplx/FA/Prenat (Praveena-Bonifacio) 1 tab DAILY PO Last administered on 12/29/18 08:17; Admin Dose 1 TAB; Start 12/27/18 at 09:30 Diagnostic Test (Pha) (Accu-Chek) 1 ea 02 XX Last administered on 12/28/18at 02:09; Admin Dose 1 EA; Start 12/28/18 at 02:00 Linagliptin (Tradjenta) 5 mg DAILY PO Last administered on 12/29/18 08:18; Admin Dose 5 MG; Start 12/27/18 at 09:30 Miscellaneous Information 1 ea NOTE XX ; Start 12/27/18 at 10:00 Glucose (Glutose) 15 gm Q15M PRN PO DECREASED GLUCOSE; Start 12/27/18 at 10:00 Glucose (Glutose) 22.5 gm Q15M PRN PO DECREASED GLUCOSE; Start 12/27/18 at 10:00 Dextrose (D50w Syringe) 25 ml Q15M PRN IV DECREASED GLUCOSE; Start 12/27/18 at 10:00 Dextrose (D50w Syringe) 50 ml Q15M PRN IV DECREASED GLUCOSE; Start 12/27/18 at 10:00 Glucagon (Glucagen) 1 mg Q15M PRN IM DECREASED GLUCOSE; Start 12/27/18 at 10:00 Glucose (Glutose) 15 gm Q15M PRN BUCCAL DECREASED GLUCOSE Last administered on 12/28/18 08:24; Admin Dose 15 GM; Start 12/27/18 at 10:00 Insulin Aspart (Novolog Insulin Pen) (Adult SC Insulin - Mild Algorithm)... AC MEALS SC Last administered on 12/29/18 17:22; Admin Dose 4 UNIT; Start 12/27/18 at 11:20 Ferric Sodium Gluconate Complex 125 mg/Sodium Chloride 110 ml @ 110 mls/hr DAILY@1300 IVPB Last administered on 12/29/18 13:27; Admin Dose 110 MLS/HR; Start 12/28/18 at 13:00; Stop 01/01/19 at 13:59 Insulin Detemir (Levemir) 4 units HS SC Last administered on 12/29/18 21:41; Admin Dose 4 UNITS; Start 12/28/18 at 21:00 Ceftriaxone Sodium 50 ml @ 100 mls/hr Q24H IVPB Last administered on 12/29/18 13:27; Admin Dose 100 MLS/HR; Start 12/29/18 at 11:00 PAUL MARTINEZ MD Dec 30, 2018 07:36
[2018-12-30] MEDS: MULTIVIT/CA CARB/B CMPLX/FA TAB PO SCH (08:19)
[2018-12-30] MEDS: LOSARTAN 50 MG TAB PO SCH ×2 (08:19→21:01)
[2018-12-30] MEDS: NIFEdipine (XL) 60 MG TAB PO SCH (08:19)
[2018-12-30] MEDS: SERTRALINE 50 MG TAB PO SCH (08:20)
[2018-12-30] MEDS: AZITHROMYCIN 250 MG TAB PO SCH (08:20)
[2018-12-30] MEDS: LINAGLIPTIN 5 MG TABLET PO SCH (08:20)
[2018-12-30] MEDS ORDERED: NIFEdipine (XL) 60 MG TAB PO SCH (10:00)
--- NOTE | 2018-12-30 10:05 | CONS ---
Assessment/Plan Assessment/Plan Assessment/Plan (Daily) 1. CKD, wtih next hd planned tomm 2. CHF is resolving 3. Pneumonia, ID note rev, H Flu 4. Anemia, epo ordered and received iv iron 5. BP elevated this am, resumed am adalat cc 6. Consider cards eval if not done recent-re occult cor disease Consultation Date/Type/Reason Admit Date/Time Dec 26, 2018 at 19:46 Initial Consult Date 12/27/18 Requesting Provider: GINACIO WILLIS MD Date/Time of Note DATE: 12/30/18 TIME: 10:03 Detailed Summary Respiratory: cough (is less and not sob) Cardiovascular: No chest pain Gastrointestinal: no complaints Genitourinary: no complaints Exam/Review of Systems Exam Vitals Vital Signs Date Temp Pulse Resp B/P (MAP) Pulse Ox O2 O2 Flow FiO2 Time Delivery Rate 12/30/18 76 08:49 12/30/18 Nasal 2.0 08:00 Cannula 12/30/18 99.2 17 211/86 99 07:26 (127) 12/26/18 35 19:41 Intake and Output 12/29/18 12/29/18 12/30/18 1515:00 23:00 07:00 IntakeIntake Total 850 ml 520 ml OutputOutput Total 2600 ml BalanceBalance -2600 ml 850 ml 520 ml Neck: jvd Respiratory: diminished breath sounds (rhonchi bilat) Cardiovascular: regular rate and rhythm Gastrointestinal: soft Extremities: No edema Results Result Diagram: 12/30/18 0554 12/30/18 0554 Results 24hrs Laboratory Tests Test 12/29/18 11:56 12/29/18 17:19 12/29/18 21:18 12/30/18 05:54 Bedside Glucose 173 285 H 153 White Blood Count 9.3 Red Blood Count 3.08 L Hemoglobin 9.7 L Hematocrit 30.3 L Mean Corpuscular 98.4 Volume Mean Corpuscular 31.5 Hemoglobin Mean Corpuscular 32.0 Hemoglobin Concent Red Cell 13.2 Distribution Width Platelet Count 278 Mean Platelet Volume 9.1 Immature 3.500 H Granulocytes % Neutrophils % 72.5 Lymphocytes % 8.8 L Monocytes % 10.9 Eosinophils % 3.7 Basophils % 0.6 Nucleated Red Blood 0.2 H Cells % Immature 0.320 H Granulocytes # Neutrophils # 6.7 Lymphocytes # 0.8 Monocytes # 1.0 H Eosinophils # 0.3 Basophils # 0.1 Nucleated Red Blood 0.0 Cells # Sodium Level 142 Potassium Level 5.1 Chloride Level 96 L Carbon Dioxide Level 31 Anion Gap 15 H Blood Urea Nitrogen 45 #H Creatinine 4.96 #H Est Glomerular Filtrat Rate mL/min Glucose Level 126 Calcium Level 9.6 Test 12/30/18 08:12 Bedside Glucose 120 Medications Medication Current Medications Albumin Human 50 ml @ 100 mls/hr WITH DIALYSIS PRN IV SBP < 90 DURING DIALYSIS Last administered on 12/29/18 11:06; Admin Dose 100 MLS/HR; Start 12/26/18 at 23:00 Hydralazine HCl (Apresoline) 75 mg TID PO Last administered on 12/30/18 08:19; Admin Dose 75 MG; Start 12/27/18 at 09:00 Azithromycin (Zithromax) 250 mg DAILY PO Last administered on 12/30/18 08:20; Admin Dose 250 MG; Start 12/28/18 at 09:00; Stop 01/04/19 at 05:00 Acetaminophen (Tylenol Tab) 650 mg Q6H PRN PO MILD PAIN(1-3)OR ELEVATED TEMP Last administered on 12/27/18 10:00; Admin Dose 650 MG; Start 12/27/18 at 09:00 Atorvastatin Calcium (Lipitor) 20 mg QHS PO Last administered on 12/29/18 21:21; Admin Dose 20 MG; Start 12/27/18 at 21:00 Clonidine HCl (Catapres-Tts 3 Patch) 0.3 patch Q7D TRANSDERM Last administered on 12/27/18 20:30; Admin Dose 0.3 PATCH; Start 12/27/18 at 11:00 Doxazosin Mesylate (Cardura) 6 mg HS PO Last administered on 12/28/18 20:48; A dmin Dose 6 MG; Start 12/27/18 at 21:00 Levothyroxine Sodium (Synthroid) 75 mcg BEFORE BREAKFAST PO Last administered on 12/30/18 06:06; Admin Dose 75 MCG; Start 12/27/18 at 09:30 Losartan Potassium (Cozaar) 50 mg BID PO Last administered on 12/30/18 08:19; Admin Dose 50 MG; Start 12/27/18 at 09:30 Nifedipine (Procardia Xl) 60 mg QAM PO Last administered on 12/30/18at 08:19; Admin Dose 60 MG; Start 12/27/18 at 09:30 Pantoprazole (Protonix Tab) 40 mg DAILY@0600 PO Last administered on 12/30/18at 06:05; Admin Dose 40 MG; Start 12/27/18 at 09:30 Sertraline HCl (Zoloft) 50 mg DAILY PO Last administered on 12/30/18 08:20; Admin Dose 50 MG; Start 12/27/18 at 09:30 Epoetin Vince (Epogen (Esrd)) 10,000 units MoWeFr@17 SC Last administered on 12/27/18 18:13; Admin Dose 10,000 UNITS; Start 12/27/18 at 17:00 Multivit/Ca Carb/ B Cmplx/FA/Prenat (Praveena-Bonifacio) 1 tab DAILY PO Last administered on 12/30/18at 08:19; Admin Dose 1 TAB; Start 12/27/18 at 09:30 Diagnostic Test (Pha) (Accu-Chek) 1 ea 02 XX Last administered on 12/28/18at 02:09; Admin Dose 1 EA; Start 12/28/18 at 02:00 Linagliptin (Tradjenta) 5 mg DAILY PO Last administered on 12/30/18 08:20; Admin Dose 5 MG; Start 12/27/18 at 09:30 Miscellaneous Information 1 ea NOTE XX ; Start 12/27/18 at 10:00 Glucose (Glutose) 15 gm Q15M PRN PO DECREASED GLUCOSE; Start 12/27/18 at 10:00 Glucose (Glutose) 22.5 gm Q15M PRN PO DECREASED GLUCOSE; Start 12/27/18 at 10:00 Dextrose (D50w Syringe) 25 ml Q15M PRN IV DECREASED GLUCOSE; Start 12/27/18 at 10:00 Dextrose (D50w Syringe) 50 ml Q15M PRN IV DECREASED GLUCOSE; Start 12/27/18 at 10:00 Glucagon (Glucagen) 1 mg Q15M PRN IM DECREASED GLUCOSE; Start 12/27/18 at 10:00 Glucose (Glutose) 15 gm Q15M PRN BUCCAL DECREASED GLUCOSE Last administered on 12/28/18at 08:24; Admin Dose 15 GM; Start 12/27/18 at 10:00 Insulin Aspart (Novolog Insulin Pen) (Adult SC Insulin - Mild Algorithm)... AC MEALS SC Last administered on 12/29/18at 17:22; Admin Dose 4 UNIT; Start 12/27/18 at 11:20 Ferric Sodium Gluconate Complex 125 mg/Sodium Chloride 110 ml @ 110 mls/hr DAILY@1300 IVPB Last administered on 12/29/18at 13:27; Admin Dose 110 MLS/HR; Start 12/28/18 at 13:00; Stop 01/01/19 at 13:59 Insulin Detemir (Levemir) 4 units HS SC Last administered on 12/29/18at 21:41; Admin Dose 4 UNITS; Start 12/28/18 at 21:00 RONNIE VASQUEZ MD Dec 30, 2018 10:05
--- NOTE | 2018-12-30 11:47 | CONS ---
Consult Date/Type/Reason Admit Date/Time Dec 26, 2018 at 19:46 Initial Consult Date 12/27/18 Type of Consult Pulmonary Requesting Provider: IGNACIO WILLIS MD Date/Time of Note DATE: 12/30/18 TIME: 11:45 Subjective Drowsy but arousable states her breathing is a little better. Family at bedside. Objective Vital Signs Date Temp Pulse Resp B/P (MAP) Pulse Ox O2 O2 Flow FiO2 Time Delivery Rate 12/30/18 98.0 69 17 185/79 100 11:26 (114) 12/30/18 Nasal 2.0 08:00 Cannula 12/26/18 35 19:41 Intake and Output 12/29/18 12/29/18 12/30/18 1414:59 22:59 06:59 IntakeIntake Total 850 ml 520 ml OutputOutput Total 2600 ml BalanceBalance -2600 ml 850 ml 520 ml Exam GENERAL: Elderly appearing lady comfortable at rest no acute distress VITAL SIGNS: per chart NECK: Supple. No JVD or lymphadenopathy. CARDIAC EXAM: S1, S2. No added sounds or murmurs. CHEST: Diminished air entry bilaterally ABDOMEN: Soft, nontender. No guarding or rebound. EXTREMITIES: No cyanosis, clubbing or edema. NEUROLOGIC: Generalized weakness. No focal deficits. Results/Medications Result Diagram: 12/30/18 0554 12/30/18 0554 Results 24 hrs Laboratory Tests Test 12/29/18 11:56 12/29/18 17:19 12/29/18 21:18 12/30/18 05:54 Bedside Glucose 173 285 H 153 White Blood Count 9.3 Red Blood Count 3.08 L Hemoglobin 9.7 L Hematocrit 30.3 L Mean Corpuscular 98.4 Volume Mean Corpuscular 31.5 Hemoglobin Mean Corpuscular 32.0 Hemoglobin Concent Red Cell 13.2 Distribution Width Platelet Count 278 Mean Platelet Volume 9.1 Immature 3.500 H Granulocytes % Neutrophils % 72.5 Lymphocytes % 8.8 L Monocytes % 10.9 Eosinophils % 3.7 Basophils % 0.6 Nucleated Red Blood 0.2 H Cells % Immature 0.320 H Granulocytes # Neutrophils # 6.7 Lymphocytes # 0.8 Monocytes # 1.0 H Eosinophils # 0.3 Basophils # 0.1 Nucleated Red Blood 0.0 Cells # Sodium Level 142 Potassium Level 5.1 Chloride Level 96 L Carbon Dioxide Level 31 Anion Gap 15 H Blood Urea Nitrogen 45 #H Creatinine 4.96 #H Est Glomerular Filtrat Rate mL/min Glucose Level 126 Calcium Level 9.6 Test 12/30/18 08:12 Bedside Glucose 120 Medications Current Medications Albumin Human 50 ml @ 100 mls/hr WITH DIALYSIS PRN IV SBP < 90 DURING DIALYSIS Last administered on 12/29/18 11:06; Admin Dose 100 MLS/HR; Start 12/26/18 at 23:00 Hydralazine HCl (Apresoline) 75 mg TID PO Last administered on 12/30/18 08:19; Admin Dose 75 MG; Start 12/27/18 at 09:00 Azithromycin (Zithromax) 250 mg DAILY PO Last administered on 12/30/18 08:20; Admin Dose 250 MG; Start 12/28/18 at 09:00; Stop 01/04/19 at 05:00 Acetaminophen (Tylenol Tab) 650 mg Q6H PRN PO MILD PAIN(1-3)OR ELEVATED TEMP Last administered on 12/27/18 10:00; Admin Dose 650 MG; Start 12/27/18 at 09:00 Atorvastatin Calcium (Lipitor) 20 mg QHS PO Last administered on 12/29/18 21:21; Admin Dose 20 MG; Start 12/27/18 at 21:00 Clonidine HCl (Catapres-Tts 3 Patch) 0.3 patch Q7D TRANSDERM Last administered on 12/27/18 20:30; Admin Dose 0.3 PATCH; Start 12/27/18 at 11:00 Doxazosin Mesylate (Cardura) 6 mg HS PO Last administered on 12/28/18 20:48; Admin Dose 6 MG; Start 12/27/18 at 21:00 Levothyroxine Sodium (Synthroid) 75 mcg BEFORE BREAKFAST PO Last administered on 12/30/18 06:06; Admin Dose 75 MCG; Start 12/27/18 at 09:30 Losartan Potassium (Cozaar) 50 mg BID PO Last administered on 12/30/18 08:19; Admin Dose 50 MG; Start 12/27/18 at 09:30 Nifedipine (Procardia Xl) 60 mg QAM PO Last administered on 12/30/18 08:19; Admin Dose 60 MG; Start 12/27/18 at 09:30 Pantoprazole (Protonix Tab) 40 mg DAILY@0600 PO Last administered on 12/30/18at 06:05; Admin Dose 40 MG; Start 12/27/18 at 09:30 Sertraline HCl (Zoloft) 50 mg DAILY PO Last administered on 12/30/18 08:20; Admin Dose 50 MG; Start 12/27/18 at 09:30 Epoetin Vince (Epogen (Esrd)) 10,000 units MoWeFr@17 SC Last administered on 12/27/18at 18:13; Admin Dose 10,000 UNITS; Start 12/27/18 at 17:00 Multivit/Ca Carb/ B Cmplx/FA/Prenat (Praveena-Bonifacio) 1 tab DAILY PO Last administered on 12/30/18 08:19; Admin Dose 1 TAB; Start 12/27/18 at 09:30 Diagnostic Test (Pha) (Accu-Chek) 1 ea 02 XX Last administered on 12/28/18at 02:09; Admin Dose 1 EA; Start 12/28/18 at 02:00 Linagliptin (Tradjenta) 5 mg DAILY PO Last administered on 12/30/18 08:20; Admin Dose 5 MG; Start 12/27/18 at 09:30 Miscellaneous Information 1 ea NOTE XX ; Start 12/27/18 at 10:00 Glucose (Glutose) 15 gm Q15M PRN PO DECREASED GLUCOSE; Start 12/27/18 at 10:00 Glucose (Glutose) 22.5 gm Q15M PRN PO DECREASED GLUCOSE; Start 12/27/18 at 10:00 Dextrose (D50w Syringe) 25 ml Q15M PRN IV DECREASED GLUCOSE; Start 12/27/18 at 10:00 Dextrose (D50w Syringe) 50 ml Q15M PRN IV DECREASED GLUCOSE; Start 12/27/18 at 10:00 Glucagon (Glucagen) 1 mg Q15M PRN IM DECREASED GLUCOSE; Start 12/27/18 at 10:00 Glucose (Glutose) 15 gm Q15M PRN BUCCAL DECREASED GLUCOSE Last administered on 12/28/18 08:24; Admin Dose 15 GM; Start 12/27/18 at 10:00 Insulin Aspart (Novolog Insulin Pen) (Adult SC Insulin - Mild Algorithm)... AC MEALS SC Last administered on 3/10/19at 17:22; Admin Dose 4 UNIT; Start 12/27/18 at 11:20 Ferric Sodium Gluconate Complex 125 mg/Sodium Chloride 110 ml @ 110 mls/hr DAILY@1300 IVPB Last administered on 12/29/18at 13:27; Admin Dose 110 MLS/HR; Start 12/28/18 at 13:00; Stop 01/01/19 at 13:59 Insulin Detemir (Levemir) 4 units HS SC Last administered on 12/29/18at 21:41; Admin Dose 4 UNITS; Start 12/28/18 at 21:00 Assessment/Plan Hospital Course (Demo Recall) Assessment 1. Right pleural effusion, possibly secondary to ESRF 2. ESRF on HD 3. Hx DM Plan; 1. Encourage OOB 2. Chest x-ray reviewed shows patchy infiltrates and/or pulmonary edema. We will continue hemodialysis with volume removal as tolerated 3. Aspiration precautions 4. PT eval encourage out of bed 5. May require SNF placement, discussed with at bedside today. RYDER CORBETT MD, [facility] Dec 30, 2018 11:47
[2018-12-30] MEDS: SOD FERRIC GLUC COMPLX 125 MG in SOD CHLORIDE 0.9% 100 ML IVPB SCH (13:00)
--- NOTE | 2018-12-30 13:11 | PN ---
Date/Time of Note Date/Time of Note DATE: 12/30/18 TIME: 13:08 Assessment/Plan VTE Prophylaxis Risk score (from [facility])>0 risk: 7 SCD applied (from [facility]): No SCD contraindicated: other Pharmacological prophylaxis: NA/contraindicated Pharm contraindication: renal impairment Lines/Catheters IV [facility] ([facility] Mid Line Urinary Cath still in place: No Assessment/Plan Assessment/Plan A: acute exacerbation of chf pleural effusion pneumonia ESRD HTN DM P: cont current rx abx per ID dialysis per renal PT eval/rx pending Result Diagram: 12/30/18 0554 12/30/18 0554 Results 24hrs Laboratory Tests Test 12/29/18 17:19 12/29/18 21:18 12/30/18 05:54 12/30/18 08:12 Bedside Glucose 285 H 153 120 White Blood Count 9.3 Red Blood Count 3.08 L Hemoglobin 9.7 L Hematocrit 30.3 L Mean Corpuscular 98.4 Volume Mean Corpuscular 31.5 Hemoglobin Mean Corpuscular 32.0 Hemoglobin Concent Red Cell 13.2 Distribution Width Platelet Count 278 Mean Platelet Volume 9.1 Immature 3.500 H Granulocytes % Neutrophils % 72.5 Lymphocytes % 8.8 L Monocytes % 10.9 Eosinophils % 3.7 Basophils % 0.6 Nucleated Red Blood 0.2 H Cells % Immature 0.320 H Granulocytes # Neutrophils # 6.7 Lymphocytes # 0.8 Monocytes # 1.0 H Eosinophils # 0.3 Basophils # 0.1 Nucleated Red Blood 0.0 Cells # Sodium Level 142 Potassium Level 5.1 Chloride Level 96 L Carbon Dioxide Level 31 Anion Gap 15 H Blood Urea Nitrogen 45 #H Creatinine 4.96 #H Est Glomerular Filtrat Rate mL/min Glucose Level 126 Calcium Level 9.6 Test 12/30/18 11:50 Bedside Glucose 194 Subjective 24 Hr Interval Summary Free Text/Dictation Pt still with some cough. Overall improving. No sob. Appetite improved. Sputum H. flu, on zithromax. Exam/Review of Systems Exam Vitals Vital Signs Date Temp Pulse Resp B/P (MAP) Pulse Ox O2 O2 Flow FiO2 Time Delivery Rate 12/30/18 74 12:29 12/30/18 98.0 17 185/79 100 11:26 (114) 12/30/18 Nasal 2.0 08:00 Cannula 12/26/18 35 19:41 Intake and Output 12/29/18 12/29/18 12/30/18 1414:59 22:59 06:59 IntakeIntake Total 850 ml 520 ml OutputOutput Total 2600 ml BalanceBalance -2600 ml 850 ml 520 ml Exam gen- nad, nontoxic lungs- some improvement in aeration at bases heart- RRR abd- +BS, soft, nontender ext- no edema Results Results 24hrs Laboratory Tests Test 12/29/18 17:19 12/29/18 21:18 12/30/18 05:54 12/30/18 08:12 Bedside Glucose 285 H 153 120 White Blood Count 9.3 Red Blood Count 3.08 L Hemoglobin 9.7 L Hematocrit 30.3 L Mean Corpuscular 98.4 Volume Mean Corpuscular 31.5 Hemoglobin Mean Corpuscular 32.0 Hemoglobin Concent Red Cell 13.2 Distribution Width Platelet Count 278 Mean Platelet Volume 9.1 Immature 3.500 H Granulocytes % Neutrophils % 72.5 Lymphocytes % 8.8 L Monocytes % 10.9 Eosinophils % 3.7 Basophils % 0.6 Nucleated Red Blood 0.2 H Cells % Immature 0.320 H Granulocytes # Neutrophils # 6.7 Lymphocytes # 0.8 Monocytes # 1.0 H Eosinophils # 0.3 Basophils # 0.1 Nucleated Red Blood 0.0 Cells # Sodium Level 142 Potassium Level 5.1 Chloride Level 96 L Carbon Dioxide Level 31 Anion Gap 15 H Blood Urea Nitrogen 45 #H Creatinine 4.96 #H Est Glomerular Filtrat Rate mL/min Glucose Level 126 Calcium Level 9.6 Test 12/30/18 11:50 Bedside Glucose 194 Medications Medication Current Medications Albumin Human 50 ml @ 100 mls/hr WITH DIALYSIS PRN IV SBP < 90 DURING DIALYSIS Last administered on 12/29/18at 11:06; Admin Dose 100 MLS/HR; Start 12/26/18 at 23:00 Hydralazine HCl (Apresoline) 75 mg TID PO Last administered on 12/30/18at 11:52; Admin Dose 75 MG; Start 12/27/18 at 09:00 Azithromycin (Zithromax) 250 mg DAILY PO Last administered on 12/30/18at 08:20; Admin Dose 250 MG; Start 12/28/18 at 09:00; Stop 01/04/19 at 05:00 Acetaminophen (Tylenol Tab) 650 mg Q6H PRN PO MILD PAIN(1-3)OR ELEVATED TEMP Last administered on 12/27/18 10:00; Admin Dose 650 MG; Start 12/27/18 at 09:00 Atorvastatin Calcium (Lipitor) 20 mg QHS PO Last administered on 12/29/18 21:21; Admin Dose 20 MG; Start 12/27/18 at 21:00 Clonidine HCl (Catapres-Tts 3 Patch) 0.3 patch Q7D TRANSDERM Last administered on 12/27/18 20:30; Admin Dose 0.3 PATCH; Start 12/27/18 at 11:00 Doxazosin Mesylate (Cardura) 6 mg HS PO Last administered on 12/28/18 20:48; Admin Dose 6 MG; Start 12/27/18 at 21:00 Levothyroxine Sodium (Synthroid) 75 mcg BEFORE BREAKFAST PO Last administered on 12/30/18 06:06; Admin Dose 75 MCG; Start 12/27/18 at 09:30 Losartan Potassium (Cozaar) 50 mg BID PO Last administered on 12/30/18 08:19; Admin Dose 50 MG; Start 12/27/18 at 09:30 Nifedipine (Procardia Xl) 60 mg QAM PO Last administered on 12/30/18 08:19; Admin Dose 60 MG; Start 12/27/18 at 09:30 Pantoprazole (Protonix Tab) 40 mg DAILY@0600 PO Last administered on 12/30/18 06:05; Admin Dose 40 MG; Start 12/27/18 at 09:30 Sertraline HCl (Zoloft) 50 mg DAILY PO Last administered on 12/30/18 08:20; Admin Dose 50 MG; Start 12/27/18 at 09:30 Epoetin Vince (Epogen (Esrd)) 10,000 units MoWeFr@17 SC Last administered on 12/27 18:13; Admin Dose 10,000 UNITS; Start 12/27/18 at 17:00 Multivit/Ca Carb/ B Cmplx/FA/Prenat (Praveena-Bonifacio) 1 tab DAILY PO Last administered on 12/30/18 08:19; Admin Dose 1 TAB; Start 12/27/18 at 09:30 Diagnostic Test (Pha) (Accu-Chek) 1 ea 02 XX Last administered on 12/28/18at 02:09; Admin Dose 1 EA; Start 12/28/18 at 02:00 Linagliptin (Tradjenta) 5 mg DAILY PO Last administered on 12/30/18 08:20; Admin Dose 5 MG; Start 12/27/18 at 09:30 Miscellaneous Information 1 ea NOTE XX ; Start 12/27/18 at 10:00 Glucose (Glutose) 15 gm Q15M PRN PO DECREASED GLUCOSE; Start 12/27/18 at 10:00 Glucose (Glutose) 22.5 gm Q15M PRN PO DECREASED GLUCOSE; Start 12/27/18 at 10:00 Dextrose (D50w Syringe) 25 ml Q15M PRN IV DECREASED GLUCOSE; Start 12/27/18 at 10:00 Dextrose (D50w Syringe) 50 ml Q15M PRN IV DECREASED GLUCOSE; Start 12/27/18 at 10:00 Glucagon (Glucagen) 1 mg Q15M PRN IM DECREASED GLUCOSE; Start 12/27/18 at 10:00 Glucose (Glutose) 15 gm Q15M PRN BUCCAL DECREASED GLUCOSE Last administered on 12/28/18 08:24; Admin Dose 15 GM; Start 12/27/18 at 10:00 Insulin Aspart (Novolog Insulin Pen) (Adult SC Insulin - Mild Algorithm)... AC MEALS SC Last administered on 12/30/18at 12:08; Admin Dose 2 UNIT; Start 12/27/18 at 11:20 Ferric Sodium Gluconate Complex 125 mg/Sodium Chloride 110 ml @ 110 mls/hr DAILY@1300 IVPB Last administered on 12/29/18 13:27; Admin Dose 110 MLS/HR; Start 12/28/18 at 13:00; Stop 01/01/19 at 13:59 Insulin Detemir (Levemir) 4 units HS SC Last administered on 12/29/18 21:41; Admin Dose 4 UNITS; Start 12/28/18 at 21:00 IGNACIO WILLIS MD Dec 30, 2018 13:11
[2018-12-30] MEDS ORDERED: EPOETIN 10000 UNITS/1 ML INJ (ESRD) SC SCH (17:00)
[2018-12-30] MEDS: EPOETIN 10000 UNITS/1 ML INJ (ESRD) SC SCH (17:09)
[2018-12-30] MEDS ORDERED: INSULIN DETEMIR [LEVEMIR] (100 UNITS/ML) SYG SC SCH (21:00)
[2018-12-30] MEDS: ATORVASTATIN 20 MG TAB PO SCH (21:00)
[2018-12-30] MEDS: DOXAZOSIN 2 MG TAB PO SCH (21:01)
[2018-12-31] VITALS (26 sets, daily range): BP systolic 96–179; BP diastolic 40–76; PULSE 66–87; RESP 16–18
[2018-12-31] MEDS: ACCU-CHEK XX SCH (01:50)
[2018-12-31] MEDS: LEVOTHYROXINE 75 MCG TAB PO SCH (05:22)
[2018-12-31] MEDS: PANTOPRAZOLE (EC) 40 MG TAB PO SCH (05:22)
[2018-12-31] MEDS: AZITHROMYCIN 250 MG TAB PO SCH (07:54)
[2018-12-31] MEDS: NIFEdipine (XL) 60 MG TAB PO SCH (07:54)
[2018-12-31] MEDS: LINAGLIPTIN 5 MG TABLET PO SCH (07:54)
[2018-12-31] MEDS: LOSARTAN 50 MG TAB PO SCH ×2 (07:54→21:05)
[2018-12-31] MEDS: MULTIVIT/CA CARB/B CMPLX/FA TAB PO SCH (07:54)
[2018-12-31] MEDS: SERTRALINE 50 MG TAB PO SCH (07:54)
[2018-12-31] MEDS: Insulin NOVOLOG SS MILD Algorithm (NPO/TPN/ENTERAL FEEDS) SC SCH ×3 (08:22→17:24)
--- NOTE | 2018-12-31 10:40 | RADRPT ---
Echocardiogram Report Patient Name: JULIA PATTERSONPatient ID: [id number] : 1945 (73y 8m)Study Date: 12/29/2018 1:59:59 PM Gender: FAccession #: [id number] Tech: MORGAN Location: Ref.Physician: HERNÁN HERRON Height(Cm): BSA: Weight(Kg): Quality: GoodAccount #: Procedures: Echocardiographic Report: Transthoracic echocardiogram with complete 2D, M-Mode, and doppler examination. Indications: Congestive Heart Failure. Measurements: 2D/M Mode Doppler Measurement Value Normal Range Measurement Value Normal Range LVIDd 2D 4.4 [ 3.8 - 5.2 ] cm MELLISSA Vmax 1.8 [ 2.0 - 4.0 ] cm2 LVIDs 2D 3.1 [ 2.2 - 3.5 ] cm AV Mean Robert 1.4 [ 70.0 - 90.0 ] cm/sec LVPWd 2D 1.3 [ 0.6 - 0.9 ] cm AV Mean PG 8.0 [ 2.0 - 4.0 ] mmHg IVSd 2D 1.3 [ 0.6 - 0.9 ] cm AV Peak Robert 1.8 [ 100.0 - 170.0 ] cm/sec IVS/LVPW 2D 1.0 ratio AV Peak PG 12.0 [ 2.0 - 9.0 ] mmHg LVOT Diam 1.9 [ 2.1 - 2.5 ] cm AV VTI 37.2 cm LVOT Area 2.8 cm2 LVOT Peak Robert 1.1 [ 70.0 - 110.0 ] cm/sec LVOT Peak PG 5.0 [ 2.0 - 6.0 ] mmHg MV E Peak Robert 1.2 [ 60.0 - 130.0 ] cm/sec MV A Peak Robert 1.5 [ 100.0 - 120.0 ] cm/sec MV E/A 0.9 [ 0.8 - 1.5 ] ratio MV Decel Time 303 [ 104 - 258 ] msec Lat E` Robert 0.1 [ 10.0 - 15.0 ] cm/sec Med E` Robert 0.0 cm/sec MV E/A 0.9 [ 0.8 - 1.5 ] ratio TR Peak Robert 2.8 [ 100.0 - 280.0 ] cm/sec TR Peak PG 32.0 mmHg PV Peak Robert 0.7 [ 40.0 - 80.0 ] cm/sec PV Peak PG 2.0 mmHg RA Pressure 3.0 mmHg Findings: Left Ventricle: Normal left ventricular systolic function. Normal left ventricular cavity size. Mild concentric left ventricular hypertrophy. Ejection fraction is visually estimated at 60 %. Tissue Doppler/Mitral Doppler indices are consistent with pseudonormalization with mildly elevated left atrial pressure (Stage II diastolic dysfunction). E/E'= 22. Right Ventricle: Normal right ventricular size. Normal right ventricular systolic function. Left Atrium: There is mild enlargement of left atrium. Right Atrium: The right atrium is normal in size. Mitral Valve: Normal appearance of the mitral valve. Mitral valve leaflets appear mildly thickened. Mild mitral annular calcification. Mild mitral valve regurgitation. Aortic Valve: No significant aortic stenosis or insufficiency. Aortic cusps appear mildly calcified. Moderate aortic valve regurgitation. Tricuspid Valve: Normal appearance of the tricuspid valve. Right ventricular systolic pressure is consistent with mild pulmonary hypertension. Estimated peak PA systolic pressure 35 mmHg. There is mild tricuspid regurgitation. Pulmonic Valve: Normal pulmonic valve appearance. There is mild pulmonic regurgitation. Pericardium: Normal pericardium with no significant pericardial effusion. No pleural effusion noted. Aorta: Normal aortic root. IVC: Normal size and normal respiratory collapse consistent with normal right atrial pressure. Conclusions: Normal left ventricular systolic function. Normal left ventricular cavity size. Mild concentric left ventricular hypertrophy. Ejection fraction is visually estimated at 60 %. Tissue Doppler/Mitral Doppler indices are consistent with pseudonormalization with mildly elevated left atrial pressure (Stage II diastolic dysfunction). E/E'= 22. There is mild enlargement of left atrium. Normal right ventricular size. Normal right ventricular systolic function. No significant aortic stenosis or insufficiency. Aortic cusps appear mildly calcified. Moderate aortic valve regurgitation. Normal appearance of the tricuspid valve. Right ventricular systolic pressure is consistent with mild pulmonary hypertension. Estimated peak PA systolic pressure 35 mmHg. There is mild tricuspid regurgitation. Normal pericardium with no significant pericardial effusion. No pleural effusion noted. Normal aortic root. Normal size and normal respiratory collapse consistent with normal right atrial pressure. No Vegetation, masses, or thrombi seen. Electronically Signed By: Hernán Herron 2018-12-31 10:39:29 PDT
--- NOTE | 2018-12-31 10:42 | CONS ---
Assessment/Plan Assessment/Plan Hospital Course (Demo Recall) - Acute on chronic diastolic heart failure with uncontrolled htn- volume overloaded, s/p thoracentesis with improvement. cont iHD for fluid mgmt and bp control - Hypertension- difficult to control, avoid atenolol given chb with medication in past. - ESRD on iHD - CAD- dense calcification non CT scan - DM2-difficult to control Recommendations: - cont iHD - cont nifedipine inc for goal SBP < 140/90 - cont hydralazine 75mg po q8hinc for goal SBP < 140/90 - cont clonidine - titrate bp meds - obtain stress test given no previous testing r/o ischemic etiology of chf exacerbation d/w dr. wood Consultation Date/Type/Reason Admit Date/Time Dec 26, 2018 at 19:46 Initial Consult Date 12/27/18 Type of Consult Cardiology Requesting Provider: IGNACIO WILLIS MD Date/Time of Note DATE: 12/31/18 TIME: 10:39 24 HR Interval Summary Free Text/Dictation no acute events. bp/hr stable. pt denies any cp. sob improved, but not out of bedyet tele reivewed nsr Detailed Summary Eyes: no complaints ENT: no complaints Respiratory: shortness of breath Cardiovascular: no complaints Gastrointestinal: no complaints Exam/Review of Systems Exam Vitals Vital Signs Date Temp Pulse Resp B/P (MAP) Pulse Ox O2 O2 Flow FiO2 Time Delivery Rate 12/31/18 66 08:20 12/31/18 Nasal 2.0 08:00 Cannula 12/31/18 98.7 17 179/74 97 07:28 (109) Intake and Output 12/30/18 12/30/18 12/31/18 1515:00 23:00 07:00 IntakeIntake Total 110 ml 400 ml BalanceBalance 110 ml 400 ml Exam Constitutional: alert, oriented Psych: no complaints Head: atraumatic, normocephalic Eyes: nl conjunctiva ENMT: mucosa pink and moist Neck: non-tender, supple, No jvd Respiratory: crackles mild barrera Cardiovascular: nl pulses, regular rate and rhythm, systolic murmur, No irregular rhythm Gastrointestinal: soft Musculoskeletal: nl extremities to inspection Extremities: normal pulses 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 Skin: nl turgor Results Result Diagram: 12/31/18 0559 12/30/18 0554 Results 24hrs Laboratory Tests Test 12/30/18 11:50 12/30/18 17:06 12/30/18 21:06 12/31/18 01:48 Bedside Glucose 194 182 212 153 Test 12/31/18 05:59 12/31/18 07:52 White Blood Count 12.3 #H Red Blood Count 3.11 L Hemoglobin 9.7 L Hematocrit 30.2 L Mean Corpuscular 97.1 Volume Mean Corpuscular 31.2 Hemoglobin Mean Corpuscular 32.1 Hemoglobin Concent Red Cell 13.4 Distribution Width Platelet Count 284 Mean Platelet Volume 8.6 Immature 5.000 H Granulocytes % Neutrophils % 75.4 Lymphocytes % 6.9 L Monocytes % 8.2 Eosinophils % 3.8 Basophils % 0.7 Nucleated Red Blood 0.2 H Cells % Immature 0.610 H Granulocytes # Neutrophils # 9.3 H Lymphocytes # 0.8 Monocytes # 1.0 H Eosinophils # 0.5 Basophils # 0.1 Nucleated Red Blood 0.0 Cells # Erythrocyte 120.0 H Sedimentation Rate Phosphorus Level 4.9 Magnesium Level 2.5 C-Reactive Protein 7.3 H Vitamin B12 Level 808 Thyroid Stimulating 1.950 Hormone (TSH) Bedside Glucose 178 Imaging Imaging cxr report reviewed Medications Medication Current Medications Albumin Human 50 ml @ 100 mls/hr WITH DIALYSIS PRN IV SBP < 90 DURING DIALYSIS Last administered on 12/29/18at 11:06; Admin Dose 100 MLS/HR; Start 12/26/18 at 23:00 Hydralazine HCl (Apresoline) 75 mg TID PO Last administered on 12/31/18at 07:55; Admin Dose 75 MG; Start 12/27/18 at 09:00 Azithromycin (Zithromax) 250 mg DAILY PO Last administered on 12/31/18at 07:54; Admin Dose 250 MG; Start 12/28/18 at 09:00; Stop 01/04/19 at 05:00 Acetaminophen (Tylenol Tab) 650 mg Q6H PRN PO MILD PAIN(1-3)OR ELEVATED TEMP Last administered on 12/27/18at 10:00; Admin Dose 650 MG; Start 12/27/18 at 09:00 Atorvastatin Calcium (Lipitor) 20 mg QHS PO Last administered on 12/30/18at 21:00; Admin Dose 20 MG; Start 12/27/18 at 21:00 Clonidine HCl (Catapres-Tts 3 Patch) 0.3 patch Q7D TRANSDERM Last administered on 12/27/18 20:30; Admin Dose 0.3 PATCH; Start 12/27/18 at 11:00 Doxazosin Mesylate (Cardura) 6 mg HS PO Last administered on 12/30/18 21:01; Admin Dose 6 MG; Start 12/27/18 at 21:00 Levothyroxine Sodium (Synthroid) 75 mcg BEFORE BREAKFAST PO Last administered on 12/31/18 05:22; Admin Dose 75 MCG; Start 12/27/18 at 09:30 Losartan Potassium (Cozaar) 50 mg BID PO Last administered on 12/31/18 07:54; Admin Dose 50 MG; Start 12/27/18 at 09:30 Nifedipine (Procardia Xl) 60 mg QAM PO Last administered on 12/31/18 07:54; Admin Dose 60 MG; Start 12/27/18 at 09:30 Pantoprazole (Protonix Tab) 40 mg DAILY@0600 PO Last administered on 12/31/18 05:22; Admin Dose 40 MG; Start 12/27/18 at 09:30 Sertraline HCl (Zoloft) 50 mg DAILY PO Last administered on 12/31/18 07:54; Admin Dose 50 MG; Start 12/27/18 at 09:30 Epoetin Vince (Epogen (Esrd)) 10,000 units MoWeFr@17 SC Last administered on 12/30/18 17:09; Admin Dose 10,000 UNITS; Start 12/27/18 at 17:00 Multivit/Ca Carb/ B Cmplx/FA/Prenat (Praveena-Bonifacio) 1 tab DAILY PO Last administered on 12/31/18 07:54; Admin Dose 1 TAB; Start 12/27/18 at 09:30 Diagnostic Test (Pha) (Accu-Chek) 1 ea 02 XX Last administered on 12/31/18 01:50; Admin Dose 1 EA; Start 12/28/18 at 02:00 Linagliptin (Tradjenta) 5 mg DAILY PO Last administered on 12/31/18 07:54; Admin Dose 5 MG; Start 12/27/18 at 09:30 Miscellaneous Information 1 ea NOTE XX ; Start 12/27/18 at 10:00 Glucose (Glutose) 15 gm Q15M PRN PO DECREASED GLUCOSE; Start 12/27/18 at 10:00 Glucose (Glutose) 22.5 gm Q15M PRN PO DECREASED GLUCOSE; Start 12/27/18 at 10:00 Dextrose (D50w Syringe) 25 ml Q15M PRN IV DECREASED GLUCOSE; Start 12/27/18 at 10:00 Dextrose (D50w Syringe) 50 ml Q15M PRN IV DECREASED GLUCOSE; Start 12/27/18 at 10:00 Glucagon (Glucagen) 1 mg Q15M PRN IM DECREASED GLUCOSE; Start 12/27/18 at 10:00 Glucose (Glutose) 15 gm Q15M PRN BUCCAL DECREASED GLUCOSE Last administered on 12/28/18at 08:24; Admin Dose 15 GM; Start 12/27/18 at 10:00 Insulin Aspart (Novolog Insulin Pen) (Adult SC Insulin - Mild Algorithm)... AC MEALS SC Last administered on 12/31/18at 08:22; Admin Dose 1 UNIT; Start 12/27/18 at 11:20 Ferric Sodium Gluconate Complex 125 mg/Sodium Chloride 110 ml @ 110 mls/hr DAILY@1300 IVPB Last administered on 12/30/18at 13:00; Admin Dose 110 MLS/HR; Start 12/28/18 at 13:00; Stop 01/01/19 at 13:59 Insulin Detemir (Levemir) 5 units HS SC Last administered on 12/30/18at 21:23; Admin Dose 5 UNITS; Start 12/30/18 at 21:00 SINDI HERRON Dec 31, 2018 10:42
--- NOTE | 2018-12-31 11:27 | CONS ---
Consult Date/Type/Reason Admit Date/Time Dec 26, 2018 at 19:46 Initial Consult Date 12/27/18 Type of Consult Pulmonary Requesting Provider: IGNACIO WILLIS MD Date/Time of Note DATE: 12/31/18 TIME: 11:26 Subjective Patient stable this morning more alert. Family at bedside. Objective Vital Signs Date Temp Pulse Resp B/P (MAP) Pulse Ox O2 O2 Flow FiO2 Time Delivery Rate 12/31/18 66 08:20 12/31/18 Nasal 2.0 08:00 Cannula 12/31/18 98.7 17 179/74 97 07:28 (109) Intake and Output 12/30/18 12/30/18 12/31/18 1515:00 23:00 07:00 IntakeIntake Total 110 ml 400 ml BalanceBalance 110 ml 400 ml Exam GENERAL: Elderly appearing lady comfortable at rest no acute distress VITAL SIGNS: per chart NECK: Supple. No JVD or lymphadenopathy. CARDIAC EXAM: S1, S2. No added sounds or murmurs. CHEST: Diminished air entry bilaterally ABDOMEN: Soft, nontender. No guarding or rebound. EXTREMITIES: No cyanosis, clubbing or edema. NEUROLOGIC: Generalized weakness. No focal deficits. Results/Medications Result Diagram: 12/31/18 0559 12/30/18 0554 Results 24 hrs Laboratory Tests Test 12/30/18 11:50 12/30/18 17:06 12/30/18 21:06 12/31/18 01:48 Bedside Glucose 194 182 212 153 Test 12/31/18 05:59 12/31/18 07:52 White Blood Count 12.3 #H Red Blood Count 3.11 L Hemoglobin 9.7 L Hematocrit 30.2 L Mean Corpuscular 97.1 Volume Mean Corpuscular 31.2 Hemoglobin Mean Corpuscular 32.1 Hemoglobin Concent Red Cell 13.4 Distribution Width Platelet Count 284 Mean Platelet Volume 8.6 Immature 5.000 H Granulocytes % Neutrophils % 75.4 Lymphocytes % 6.9 L Monocytes % 8.2 Eosinophils % 3.8 Basophils % 0.7 Nucleated Red Blood 0.2 H Cells % Immature 0.610 H Granulocytes # Neutrophils # 9.3 H Lymphocytes # 0.8 Monocytes # 1.0 H Eosinophils # 0.5 Basophils # 0.1 Nucleated Red Blood 0.0 Cells # Erythrocyte 120.0 H Sedimentation Rate Phosphorus Level 4.9 Magnesium Level 2.5 C-Reactive Protein 7.3 H Vitamin B12 Level 808 Thyroid Stimulating 1.950 Hormone (TSH) Bedside Glucose 178 Medications Current Medications Albumin Human 50 ml @ 100 mls/hr WITH DIALYSIS PRN IV SBP < 90 DURING DIALYSIS Last administered on 12/29/18 11:06; Admin Dose 100 MLS/HR; Start 12/26/18 at 23:00 Hydralazine HCl (Apresoline) 75 mg TID PO Last administered on 12/31/18 07:55; Admin Dose 75 MG; Start 12/27/18 at 09:00 Azithromycin (Zithromax) 250 mg DAILY PO Last administered on 12/31/18 07:54; Admin Dose 250 MG; Start 12/28/18 at 09:00; Stop 01/04/19 at 05:00 Acetaminophen (Tylenol Tab) 650 mg Q6H PRN PO MILD PAIN(1-3)OR ELEVATED TEMP [place] administered on 12/27/18 10:00; Admin Dose 650 MG; Start 12/27/18 at 09:00 Atorvastatin Calcium (Lipitor) 20 mg QHS PO Last administered on 12/30/18 21:00; Admin Dose 20 MG; Start 12/27/18 at 21:00 Clonidine HCl (Catapres-Tts 3 Patch) 0.3 patch Q7D TRANSDERM Last administered on 12/27/18 20:30; Admin Dose 0.3 PATCH; Start 12/27/18 at 11:00 Doxazosin Mesylate (Cardura) 6 mg HS PO Last administered on 12/30/18 21:01; Admin Dose 6 MG; Start 12/27/18 at 21:00 Levothyroxine Sodium (Synthroid) 75 mcg BEFORE BREAKFAST PO Last administered on 12/31/18 05:22; Admin Dose 75 MCG; Start 12/27/18 at 09:30 Losartan Potassium (Cozaar) 50 mg BID PO Last administered on 12/31/18 07:54; Admin Dose 50 MG; Start 12/27/18 at 09:30 Nifedipine (Procardia Xl) 60 mg QAM PO Last administered on 12/31/18 07:54; Admin Dose 60 MG; Start 12/27/18 at 09:30 Pantoprazole (Protonix Tab) 40 mg DAILY@0600 PO Last administered on 12/31/18 05:22; Admin Dose 40 MG; Start 12/27/18 at 09:30 Sertraline HCl (Zoloft) 50 mg DAILY PO Last administered on 12/31/18 07:54; Admin Dose 50 MG; Start 12/27/18 at 09:30 Epoetin Vince (Epogen (Esrd)) 10,000 units MoWeFr@17 SC Last administered on 12/30/18 17:09; Admin Dose 10,000 UNITS; Start 12/27/18 at 17:00 Multivit/Ca Carb/ B Cmplx/FA/Prenat (Praveena-Bonifacio) 1 tab DAILY PO Last administered on 12/31/18 07:54; Admin Dose 1 TAB; Start 12/27/18 at 09:30 Diagnostic Test (Pha) (Accu-Chek) 1 ea 02 XX Last administered on 12/31/18 01:50; Admin Dose 1 EA; Start 12/28/18 at 02:00 Linagliptin (Tradjenta) 5 mg DAILY PO Last administered on 12/31/18 07:54; Admin Dose 5 MG; Start 12/27/18 at 09:30 Miscellaneous Information 1 ea NOTE XX ; Start 12/27/18 at 10:00 Glucose (Glutose) 15 gm Q15M PRN PO DECREASED GLUCOSE; Start 12/27/18 at 10:00 Glucose (Glutose) 22.5 gm Q15M PRN PO DECREASED GLUCOSE; Start 12/27/18 at 10:00 Dextrose (D50w Syringe) 25 ml Q15M PRN IV DECREASED GLUCOSE; Start 12/27/18 at 10:00 Dextrose (D50w Syringe) 50 ml Q15M PRN IV DECREASED GLUCOSE; Start 12/27/18 at 10:00 Glucagon (Glucagen) 1 mg Q15M PRN IM DECREASED GLUCOSE; Start 12/27/18 at 10:00 Glucose (Glutose) 15 gm Q15M PRN BUCCAL DECREASED GLUCOSE Last administered on 12/28/18 08:24; Admin Dose 15 GM; Start 12/27/18 at 10:00 Insulin Aspart (Novolog Insulin Pen) (Adult SC Insulin - Mild Algorithm)... AC MEALS SC Last administered on 12/31/18 08:22; Admin Dose 1 UNIT; Start 12/27/18 at 11:20 Ferric Sodium Gluconate Complex 125 mg/Sodium Chloride 110 ml @ 110 mls/hr DAILY@1300 IVPB Last administered on 12/30/18at 13:00; Admin Dose 110 MLS/HR; Start 12/28/18 at 13:00; Stop 01/01/19 at 13:59 Insulin Detemir (Levemir) 5 units HS SC Last administered on 12/30/18at 21:23; Admin Dose 5 UNITS; Start 12/30/18 at 21:00 Assessment/Plan Hospital Course (Demo Recall) Assessment 1. Right pleural effusion, possibly secondary to ESRF 2. ESRF on HD 3. Hx DM Plan; 1. Encourage OOB 2. Chest x-ray reviewed shows patchy infiltrates and/or pulmonary edema. We wi ll continue hemodialysis with volume removal as tolerated 3. Aspiration precautions 4. PT eval encourage out of bed 5. May require SNF placement, discussed with at bedside Overall prognosis guarded. RYDER CORBETT MD, [facility] Dec 31, 2018 11:26
[2018-12-31] MEDS: ACETAMINOPHEN 325 MG TAB PO PRN ×2 (12:49→21:17)
[2018-12-31] MEDS: SOD FERRIC GLUC COMPLX 125 MG in SOD CHLORIDE 0.9% 100 ML IVPB SCH (13:01)
--- NOTE | 2018-12-31 13:25 | PN ---
Date/Time of Note Date/Time of Note DATE: 12/31/18 TIME: 13:20 Assessment/Plan VTE Prophylaxis Risk score (from Ns)>0 risk: 5 SCD applied (from Ns): Yes Pharmacological prophylaxis: NA/contraindicated Pharm contraindication: renal impairment Lines/Catheters IV Catheter Type (from Nrsg): Mid Line Urinary Cath still in place: No Assessment/Plan Assessment/Plan A: acute exacerbation of chf pleural effusion pneumonia ESRD HTN DM P: dialysis per renal abx per ID cards w/u pending cont current rx increase levemir Result Diagram: 12/31/18 0559 12/30/18 0554 Results 24hrs Laboratory Tests Test 12/30/18 17:06 12/30/18 21:06 12/31/18 01:48 12/31/18 05:59 Bedside Glucose 182 212 153 White Blood Count 12.3 #H Red Blood Count 3.11 L Hemoglobin 9.7 L Hematocrit 30.2 L Mean Corpuscular 97.1 Volume Mean Corpuscular 31.2 Hemoglobin Mean Corpuscular 32.1 Hemoglobin Concent Red Cell 13.4 Distribution Width Platelet Count 284 Mean Platelet Volume 8.6 Immature 5.000 H Granulocytes % Neutrophils % 75.4 Lymphocytes % 6.9 L Monocytes % 8.2 Eosinophils % 3.8 Basophils % 0.7 Nucleated Red Blood 0.2 H Cells % Immature 0.610 H Granulocytes # Neutrophils # 9.3 H Lymphocytes # 0.8 Monocytes # 1.0 H Eosinophils # 0.5 Basophils # 0.1 Nucleated Red Blood 0.0 Cells # Erythrocyte 120.0 H Sedimentation Rate Phosphorus Level 4.9 Magnesium Level 2.5 C-Reactive Protein 7.3 H Vitamin B12 Level 808 Thyroid Stimulating 1.950 Hormone (TSH) Test 12/31/18 07:52 12/31/18 12:01 Bedside Glucose 178 215 Subjective 24 Hr Interval Summary Free Text/Dictation Pt feeling better, less cough. Rt CP sl decreased. No SOB. Exam/Review of Systems Exam Vitals Vital Signs Date Temp Pulse Resp B/P (MAP) Pulse Ox O2 O2 Flow FiO2 Time Delivery Rate 12/31/18 72 12:41 12/31/18 98.1 17 151/68 99 11:28 (95) 12/31/18 Nasal 2.0 08:00 Cannula Intake and Output 12/30/18 12/30/18 12/31/18 1515:00 23:00 07:00 IntakeIntake Total 110 ml 400 ml BalanceBalance 110 ml 400 ml Exam gen- nad, nontoxic lungs- decreased bs bases rt>lt heart- RRR abd- +BS, soft, nontender ext- no edema Results Results 24hrs Laboratory Tests Test 12/30/18 17:06 12/30/18 21:06 12/31/18 01:48 12/31/18 05:59 Bedside Glucose 182 212 153 White Blood Count 12.3 #H Red Blood Count 3.11 L Hemoglobin 9.7 L Hematocrit 30.2 L Mean Corpuscular 97.1 Volume Mean Corpuscular 31.2 Hemoglobin Mean Corpuscular 32.1 Hemoglobin Concent Red Cell 13.4 Distribution Width Platelet Count 284 Mean Platelet Volume 8.6 Immature 5.000 H Granulocytes % Neutrophils % 75.4 Lymphocytes % 6.9 L Monocytes % 8.2 Eosinophils % 3.8 Basophils % 0.7 Nucleated Red Blood 0.2 H Cells % Immature 0.610 H Granulocytes # Neutrophils # 9.3 H Lymphocytes # 0.8 Monocytes # 1.0 H Eosinophils # 0.5 Basophils # 0.1 Nucleated Red Blood 0.0 Cells # Erythrocyte 120.0 H Sedimentation Rate Phosphorus Level 4.9 Magnesium Level 2.5 C-Reactive Protein 7.3 H Vitamin B12 Level 808 Thyroid Stimulating 1.950 Hormone (TSH) Test 12/31/18 07:52 12/31/18 12:01 Bedside Glucose 178 215 Medications Medication Current Medications Albumin Human 50 ml @ 100 mls/hr WITH DIALYSIS PRN IV SBP < 90 DURING DIALYSIS Last administered on 12/29/18at 11:06; Admin Dose 100 MLS/HR; Start 12/26/18 at 23:00 Hydralazine HCl (Apresoline) 75 mg TID PO Last administered on 12/31/18at 13:02; Admin Dose 75 MG; Start 12/27/18 at 09:00 Azithromycin (Zithromax) 250 mg DAILY PO Last administered on 12/31/18at 07:54; Admin Dose 250 MG; Start 12/28/18 at 09:00; Stop 01/04/19 at 05:00 Acetaminophen (Tylenol Tab) 650 mg Q6H PRN PO MILD PAIN(1-3)OR ELEVATED TEMP Last administered on 12/31/18 12:49; Admin Dose 650 MG; Start 12/27/18 at 09:00 Atorvastatin Calcium (Lipitor) 20 mg QHS PO Last administered on 12/30/18 21:00; Admin Dose 20 MG; Start 12/27/18 at 21:00 Clonidine HCl (Catapres-Tts 3 Patch) 0.3 patch Q7D TRANSDERM Last administered on 12/27/18 20:30; Admin Dose 0.3 PATCH; Start 12/27/18 at 11:00 Doxazosin Mesylate (Cardura) 6 mg HS PO Last administered on 12/30/18 21:01; Admin Dose 6 MG; Start 12/27/18 at 21:00 Levothyroxine Sodium (Synthroid) 75 mcg BEFORE BREAKFAST PO Last administered on 12/31/18 05:22; Admin Dose 75 MCG; Start 12/27/18 at 09:30 Losartan Potassium (Cozaar) 50 mg BID PO Last administered on 12/31/18 07:54; Admin Dose 50 MG; Start 12/27/18 at 09:30 Nifedipine (Procardia Xl) 60 mg QAM PO Last administered on 12/31/18 07:54; Admin Dose 60 MG; Start 12/27/18 at 09:30 Pantoprazole (Protonix Tab) 40 mg DAILY@0600 PO Last administered on 12/31/18 05:22; Admin Dose 40 MG; Start 12/27/18 at 09:30 Sertraline HCl (Zoloft) 50 mg DAILY PO Last administered on 12/31/18 07:54; Admin Dose 50 MG; Start 12/27/18 at 09:30 Epoetin Vince (Epogen (Esrd)) 10,000 units MoWeFr@17 SC Last administered on 12/30/18 17:09; Admin Dose 10,000 UNITS; Start 12/27/18 at 17:00 Multivit/Ca Carb/ B Cmplx/FA/Prenat (Praveena-Bonifacio) 1 tab DAILY PO Last administered on 12/31/18 07:54; Admin Dose 1 TAB; Start 12/27/18 at 09:30 Diagnostic Test (Pha) (Accu-Chek) 1 ea 02 XX Last administered on 12/31/18 01:50; Admin Dose 1 EA; Start 12/28/18 at 02:00 Linagliptin (Tradjenta) 5 mg DAILY PO Last administered on 12/31/18at 07:54; Admin Dose 5 MG; Start 12/27/18 at 09:30 Miscellaneous Information 1 ea NOTE XX ; Start 12/27/18 at 10:00 Glucose (Glutose) 15 gm Q15M PRN PO DECREASED GLUCOSE; Start 12/27/18 at 10:00 Glucose (Glutose) 22.5 gm Q15M PRN PO DECREASED GLUCOSE; Start 12/27/18 at 10:00 Dextrose (D50w Syringe) 25 ml Q15M PRN IV DECREASED GLUCOSE; Start 12/27/18 at 10:00 Dextrose (D50w Syringe) 50 ml Q15M PRN IV DECREASED GLUCOSE; Start 12/27/18 at 10:00 Glucagon (Glucagen) 1 mg Q15M PRN IM DECREASED GLUCOSE; Start 12/27/18 at 10:00 Glucose (Glutose) 15 gm Q15M PRN BUCCAL DECREASED GLUCOSE Last administered on 12/28/18at 08:24; Admin Dose 15 GM; Start 12/27/18 at 10:00 Insulin Aspart (Novolog Insulin Pen) (Adult SC Insulin - Mild Algorithm)... AC MEALS SC Last administered on 12/31/18at 12:06; Admin Dose 2 UNIT; Start 12/27/18 at 11:20 Ferric Sodium Gluconate Complex 125 mg/Sodium Chloride 110 ml @ 110 mls/hr DAILY@1300 IVPB Last administered on 12/31/18at 13:01; Admin Dose 110 MLS/HR; Start 12/28/18 at 13:00; Stop 01/01/19 at 13:59 Insulin Detemir (Levemir) 5 units HS SC Last administered on 12/30/18at 21:23; Admin Dose 5 UNITS; Start 12/30/18 at 21:00 IGNACIO WILLIS MD Dec 31, 2018 13:25
[2018-12-31] MEDS: ATORVASTATIN 20 MG TAB PO SCH (21:05)
[2018-12-31] MEDS: INSULIN DETEMIR [LEVEMIR] (100 UNITS/ML) SYG SC SCH (21:22)
[2018-12-31] MEDS: DOXAZOSIN 2 MG TAB PO SCH (21:52)
[2019-01-01] VITALS (12 sets, daily range): BP systolic 134–149; BP diastolic 59–65; PULSE 73–82; RESP 16–18
[2019-01-01] MEDS: ACCU-CHEK XX SCH (02:00)
[2019-01-01] MEDS: PANTOPRAZOLE (EC) 40 MG TAB PO SCH (06:00)
[2019-01-01] MEDS: LEVOTHYROXINE 75 MCG TAB PO SCH (06:23)
--- NOTE | 2019-01-01 07:14 | CONS ---
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 labs are pending 12/30- h.flu in sputum, d/c ceftriaxone and will continue with azithro alone thru 01/04 01/01 - cough returned but good O2 sats change azithro to augmentin and continue thru 01/05 2) DM 3) ESRD 4) HTN 5) chest wall wound infection no further drainage and no sign of redness at prior site Consultation Date/Type/Reason Admit Date/Time Dec 26, 2018 at 19:46 Initial Consult Date 12/27/18 Type of Consult ID Requesting Provider: IGNACIO WILLIS MD Date/Time of Note DATE: 01/01/19 TIME: 07:12 24 HR Interval Summary Free Text/Dictation pt states cough has returned, clear phlegm no SOB walks to BR without getting SOB no V had a loose stool yesterday also had stomach pain yesterday, not this a.m. Exam/Review of Systems Exam Vitals Vital Signs Date Temp Pulse Resp B/P (MAP) Pulse Ox O2 O2 Flow FiO2 Time Delivery Rate 01/01/19 98.4 77 18 137/63 98 04:08 (87) 12/31/18 2.0 27 21:05 12/31/18 Nasal 20:00 Cannula Intake and Output 12/31/18 12/31/18 01/01/19 1515:00 23:00 07:00 IntakeIntake Total 800 ml 200 ml OutputOutput Total 2400 ml BalanceBalance -1600 ml 200 ml Constitutional: alert ENMT: mucosa pink and moist Respiratory: clear to auscultation Cardiovascular: regular rate and rhythm Gastrointestinal: soft, non-tender Results Result Diagram: 01/01/19 0555 01/01/19 0556 Results 24hrs Laboratory Tests Test 12/31/18 07:52 12/31/18 12:01 12/31/18 17:18 12/31/18 21:16 Bedside Glucose 178 215 149 211 Test 01/01/19 05:55 01/01/19 05:56 White Blood Count 12.4 H Red Blood Count 3.14 L Hemoglobin 10.0 L Hematocrit 30.0 L Mean Corpuscular 95.5 Volume Mean Corpuscular 31.8 Hemoglobin Mean Corpuscular 33.3 Hemoglobin Concent Red Cell 13.2 Distribution Width Platelet Count 251 Mean Platelet Volume 8.6 Immature 3.400 H Granulocytes % Neutrophils % 82.1 H Lymphocytes % 4.4 L Monocytes % 7.3 Eosinophils % 2.2 Basophils % 0.6 Nucleated Red Blood 0.2 H Cells % Immature 0.420 H Granulocytes # Neutrophils # 10.2 H Lymphocytes # 0.6 L Monocytes # 0.9 Eosinophils # 0.3 Basophils # 0.1 Nucleated Red Blood 0.0 Cells # Sodium Level 142 Potassium Level 4.4 Chloride Level 96 L Carbon Dioxide Level 32 H Anion Gap 14 H Blood Urea Nitrogen 46 H Creatinine 4.99 H Est Glomerular Filtrat Rate mL/min Glucose Level 144 Calcium Level 9.4 Medications Medication Current Medications Albumin Human 50 ml @ 100 mls/hr WITH DIALYSIS PRN IV SBP < 90 DURING DIALYSIS Last administered on 12/29/18 11:06; Admin Dose 100 MLS/HR; Start 12/26/18 at 2 3:00 Hydralazine HCl (Apresoline) 75 mg TID PO Last administered on 12/31/18 21:06; Admin Dose 75 MG; Start 12/27/18 at 09:00 Azithromycin (Zithromax) 250 mg DAILY PO Last administered on 12/31/18at 07:54; Admin Dose 250 MG; Start 12/28/18 at 09:00; Stop 01/04/19 at 05:00 Acetaminophen (Tylenol Tab) 650 mg Q6H PRN PO MILD PAIN(1-3)OR ELEVATED TEMP Last administered on 12/31/18 21:17; Admin Dose 650 MG; Start 12/27/18 at 09:00 Atorvastatin Calcium (Lipitor) 20 mg QHS PO Last administered on 12/31/18 21:05; Admin Dose 20 MG; Start 12/27/18 at 21:00 Clonidine HCl (Catapres-Tts 3 Patch) 0.3 patch Q7D TRANSDERM Last administered on 12/27/18at 20:30; Admin Dose 0.3 PATCH; Start 12/27/18 at 11:00 Doxazosin Mesylate (Cardura) 6 mg HS PO Last administered on 12/31/18 21:52; Admin Dose 6 MG; Start 12/27/18 at 21:00 Levothyroxine Sodium (Synthroid) 75 mcg BEFORE BREAKFAST PO Last administered on 12/31/18 05:22; Admin Dose 75 MCG; Start 12/27/18 at 09:30 Losartan Potassium (Cozaar) 50 mg BID PO Last administered on 12/31/18 21:05; Admin Dose 50 MG; Start 12/27/18 at 09:30 Nifedipine (Procardia Xl) 60 mg QAM PO Last administered on 12/31/18 07:54; Admin Dose 60 MG; Start 12/27/18 at 09:30 Pantoprazole (Protonix Tab) 40 mg DAILY@0600 PO Last administered on 12/31/18 05:22; Admin Dose 40 MG; Start 12/27/18 at 09:30 Sertraline HCl (Zoloft) 50 mg DAILY PO Last administered on 12/31/18 07:54; Admin Dose 50 MG; Start 12/27/18 at 09:30 Epoetin Vince (Epogen (Esrd)) 10,000 units MoWeFr@17 SC Last administered on 12/30/18 17:09; Admin Dose 10,000 UNITS; Start 12/27/18 at 17:00 Multivit/Ca Carb/ B Cmplx/FA/Prenat (Praveena-Bonifacio) 1 tab DAILY PO Last administered on 12/31/18 07:54; Admin Dose 1 TAB; Start 12/27/18 at 09:30 Diagnostic Test (Pha) (Accu-Chek) 1 ea 02 XX Last administered on 12/31/18 01:50; Admin Dose 1 EA; Start 12/28/18 at 02:00 Linagliptin (Tradjenta) 5 mg DAILY PO Last administered on 12/31/18 07:54; Admin Dose 5 MG; Start 12/27/18 at 09:30 Miscellaneous Information 1 ea NOTE XX ; Start 12/27/18 at 10:00 Glucose (Glutose) 15 gm Q15M PRN PO DECREASED GLUCOSE; Start 12/27/18 at 10:00 Glucose (Glutose) 22.5 gm Q15M PRN PO DECREASED GLUCOSE; Start 12/27/18 at 10:00 Dextrose (D50w Syringe) 25 ml Q15M PRN IV DECREASED GLUCOSE; Start 12/27/18 at 10:00 Dextrose (D50w Syringe) 50 ml Q15M PRN IV DECREASED GLUCOSE; Start 12/27/18 at 10:00 Glucagon (Glucagen) 1 mg Q15M PRN IM DECREASED GLUCOSE; Start 12/27/18 at 10:00 Glucose (Glutose) 15 gm Q15M PRN BUCCAL DECREASED GLUCOSE Last administered on 12/28/18 08:24; Admin Dose 15 GM; Start 12/27/18 at 10:00 Insulin Aspart (Novolog Insulin Pen) (Adult SC Insulin - Mild Algorithm)... AC MEALS SC Last administered on 12/31/18at 17:24; Admin Dose 1 UNIT; Start 12/27/18 at 11:20 Ferric Sodium Gluconate Complex 125 mg/Sodium Chloride 110 ml @ 110 mls/hr DAILY@1300 IVPB Last administered on 12/31/18at 13:01; Admin Dose 110 MLS/HR; Start 12/28/18 at 13:00; Stop 01/01/19 at 13:59 Insulin Detemir (Levemir) 6 units HS SC Last administered on 12/31/18 21:22; Admin Dose 6 UNITS; Start 12/31/18 at 21:00 PAUL MARTINEZ MD Jan 01, 2019 07:14
[2019-01-01] MEDS: Insulin NOVOLOG SS MILD Algorithm (NPO/TPN/ENTERAL FEEDS) SC SCH ×3 (07:25→17:26)
[2019-01-01] MEDS: SERTRALINE 50 MG TAB PO SCH (08:17)
[2019-01-01] MEDS: NIFEdipine (XL) 60 MG TAB PO SCH (08:17)
[2019-01-01] MEDS: MULTIVIT/CA CARB/B CMPLX/FA TAB PO SCH (08:18)
[2019-01-01] MEDS: LOSARTAN 50 MG TAB PO SCH ×2 (08:18→20:49)
[2019-01-01] MEDS: LINAGLIPTIN 5 MG TABLET PO SCH (08:19)
[2019-01-01] MEDS: AMOXICILLIN/CLAV 500 MG TAB PO SCH (08:22)
[2019-01-01] MEDS ORDERED: REGADENOSON 0.4 MG/5 ML SYG ONE (09:22)
--- NOTE | 2019-01-01 09:51 | CONS ---
Assessment/Plan Assessment/Plan Assessment/Plan 1. CKD, to have hd tomm 2. CHF resolving, cardiology eval->nucl mill today 3. Pneumonia is resolving 4. BP control is improving. Consultation Date/Type/Reason Admit Date/Time Dec 26, 2018 at 19:46 Type of Consult Nephrology Date/Time of Note DATE: 01/01/19 TIME: 09:49 Respiratory: shortness of breath (is less and cough overall improving) Cardiovascular: No chest pain Gastrointestinal: nausea; No vomiting Genitourinary: no complaints Exam/Review of Systems Vital Signs Vitals Vital Signs Date Temp Pulse Resp B/P (MAP) Pulse Ox O2 O2 Flow FiO2 Time Delivery Rate 01/01/19 75 08:23 01/01/19 98.7 16 134/63 98 Nasal 07:26 (86) Cannula 12/31/18 2.0 27 21:05 Intake and Output 12/31/18 12/31/18 01/01/19 1515:00 23:00 07:00 IntakeIntake Total 800 ml 200 ml OutputOutput Total 2400 ml BalanceBalance -1600 ml 200 ml Exam Neck: jvd (mild HJR) Respiratory: diminished breath sounds; No wheezing (and no rales or rhonchi) Cardiovascular: regular rate and rhythm Gastrointestinal: soft Extremities: No edema Labs Result Diagram: 01/01/19 0555 01/01/19 0556 Results 24hrs Laboratory Tests Test 12/31/18 12:01 12/31/18 17:18 12/31/18 21:16 01/01/19 05:55 Bedside Glucose 215 149 211 White Blood Count 12.4 H Red Blood Count 3.14 L Hemoglobin 10.0 L Hematocrit 30.0 L Mean Corpuscular 95.5 Volume Mean Corpuscular 31.8 Hemoglobin Mean Corpuscular 33.3 Hemoglobin Concent Red Cell 13.2 Distribution Width Platelet Count 251 Mean Platelet Volume 8.6 Immature 3.400 H Granulocytes % Neutrophils % 82.1 H Lymphocytes % 4.4 L Monocytes % 7.3 Eosinophils % 2.2 Basophils % 0.6 Nucleated Red Blood 0.2 H Cells % Immature 0.420 H Granulocytes # Neutrophils # 10.2 H Lymphocytes # 0.6 L Monocytes # 0.9 Eosinophils # 0.3 Basophils # 0.1 Nucleated Red Blood 0.0 Cells # Test 01/01/19 05:56 01/01/19 07:45 Sodium Level 142 Potassium Level 4.4 Chloride Level 96 L Carbon Dioxide Level 32 H Anion Gap 14 H Blood Urea Nitrogen 46 H Creatinine 4.99 H Est Glomerular Filtrat Rate mL/min Glucose Level 144 Calcium Level 9.4 Bedside Glucose 113 Medications Medications Current Medications Albumin Human 50 ml @ 100 mls/hr WITH DIALYSIS PRN IV SBP < 90 DURING DIALYSIS Last administered on 12/29/18 11:06; Admin Dose 100 MLS/HR; Start 12/26/18 at 23:00 Hydralazine HCl (Apresoline) 75 mg TID PO Last administered on 01/01/19 08:19; Admin Dose 75 MG; Start 12/27/18 at 09:00 Acetaminophen (Tylenol Tab) 650 mg Q6H PRN PO MILD PAIN(1-3)OR ELEVATED TEMP Last administered on 12/31/18 21:17; Admin Dose 650 MG; Start 12/27/18 at 09:00 Atorvastatin Calcium (Lipitor) 20 mg QHS PO Last administered on 12/31/18 21:05; Admin Dose 20 MG; Start 12/27/18 at 21:00 Clonidine HCl (Catapres-Tts 3 Patch) 0.3 patch Q7D TRANSDERM Last administered on 12/27/18 20:30; Admin Dose 0.3 PATCH; Start 12/27/18 at 11:00 Doxazosin Mesylate (Cardura) 6 mg HS PO Last administered on 12/31/18 21:52; Admin Dose 6 MG; Start 12/27/18 at 21:00 Levothyroxine Sodium (Synthroid) 75 mcg BEFORE BREAKFAST PO Last administered on 12/31/18 05:22; Admin Dose 75 MCG; Start 12/27/18 at 09:30 Losartan Potassium (Cozaar) 50 mg BID PO Last administered on 01/01/19 08:18; Admin Dose 50 MG; Start 12/27/18 at 09:30 Nifedipine (Procardia Xl) 60 mg QAM PO Last administered on 01/01/19 08:17; Admin Dose 60 MG; Start 12/27/18 at 09:30 Pantoprazole (Protonix Tab) 40 mg DAILY@0600 PO Last administered on 12/31/18 05:22; Admin Dose 40 MG; Start 12/27/18 at 09:30 Sertraline HCl (Zoloft) 50 mg DAILY PO Last administered on 01/01/19 08:17; Admin Dose 50 MG; Start 12/27/18 at 09:30 Epoetin Vince (Epogen (Esrd)) 10,000 units MoWeFr@17 SC Last administered on 12/30/18 17:09; Admin Dose 10,000 UNITS; Start 12/27/18 at 17:00 Multivit/Ca Carb/ B Cmplx/FA/Prenat (Praveena-Bonifacio) 1 tab DAILY PO Last administered on 01/01/19 08:18; Admin Dose 1 TAB; Start 12/27/18 at 09:30 Diagnostic Test (Pha) (Accu-Chek) 1 ea 02 XX Last administered on 12/31/18 01:50; Admin Dose 1 EA; Start 12/28/18 at 02:00 Linagliptin (Tradjenta) 5 mg DAILY PO Last administered on 12/31/18 07:54; Admin Dose 5 MG; Start 12/27/18 at 09:30 Miscellaneous Information 1 ea NOTE XX ; Start 12/27/18 at 10:00 Glucose (Glutose) 15 gm Q15M PRN PO DECREASED GLUCOSE; Start 12/27/18 at 10:00 Glucose (Glutose) 22.5 gm Q15M PRN PO DECREASED GLUCOSE; Start 12/27/18 at 10:00 Dextrose (D50w Syringe) 25 ml Q15M PRN IV DECREASED GLUCOSE; Start 12/27/18 at 10:00 Dextrose (D50w Syringe) 50 ml Q15M PRN IV DECREASED GLUCOSE; Start 12/27/18 at 10:00 Glucagon (Glucagen) 1 mg Q15M PRN IM DECREASED GLUCOSE; Start 12/27/18 at 10:00 Glucose (Glutose) 15 gm Q15M PRN BUCCAL DECREASED GLUCOSE Last administered on 12/28/18 08:24; Admin Dose 15 GM; Start 12/27/18 at 10:00 Insulin Aspart (Novolog Insulin Pen) (Adult SC Insulin - Mild Algorithm)... AC MEALS SC Last administered on 12/31/18 17:24; Admin Dose 1 UNIT; Start 12/27/18 at 11:20 Ferric Sodium Gluconate Complex 125 mg/Sodium Chloride 110 ml @ 110 mls/hr DAILY@1300 IVPB Last administered on 12/31/18at 13:01; Admin Dose 110 MLS/HR; Start 12/28/18 at 13:00; Stop 01/01/19 at 13:59 Insulin Detemir (Levemir) 6 units HS SC Last administered on 12/31/18at 21:22; Admin Dose 6 UNITS; Start 12/31/18 at 21:00 Amoxicillin/ Clavulanate Potassium (Augmentin) 500 mg DAILY PO Last administe red on 01/01/19at 08:22; Admin Dose 500 MG; Start 01/01/19 at 09:00 RONNIE VASQUEZ MD Jan 01, 2019 09:51
--- NOTE | 2019-01-01 11:15 | CONS ---
Consult Date/Type/Reason Admit Date/Time Dec 26, 2018 at 19:46 Initial Consult Date 12/27/18 Type of Consult Pulmonary Requesting Provider: IGNACIO WILLIS MD Date/Time of Note DATE: 01/01/19 TIME: 11:14 Subjective No changes. Objective Vital Signs Date Temp Pulse Resp B/P (MAP) Pulse Ox O2 O2 Flow FiO2 Time Delivery Rate 01/01/19 75 08:23 01/01/19 Nasal 2.0 07:30 Cannula 01/01/19 98.7 16 134/63 98 07:26 (86) 12/31/18 27 21:05 Intake and Output 12/31/18 12/31/18 01/01/19 1515:00 23:00 07:00 IntakeIntake Total 800 ml 200 ml OutputOutput Total 2400 ml BalanceBalance -1600 ml 200 ml Exam GENERAL: Elderly appearing lady comfortable at rest no acute distress VITAL SIGNS: per chart NECK: Supple. No JVD or lymphadenopathy. CARDIAC EXAM: S1, S2. No added sounds or murmurs. CHEST: Diminished air entry bilaterally ABDOMEN: Soft, nontender. No guarding or rebound. EXTREMITIES: No cyanosis, clubbing or edema. NEUROLOGIC: Generalized weakness. No focal deficits. Vent Setting Fraction of Inspired Oxygen pe: 27 Results/Medications Result Diagram: 01/01/19 0555 01/01/19 0556 Results 24 hrs Laboratory Tests Test 12/31/18 12:01 12/31/18 17:18 12/31/18 21:16 01/01/19 05:55 Bedside Glucose 215 149 211 White Blood Count 12.4 H Red Blood Count 3.14 L Hemoglobin 10.0 L Hematocrit 30.0 L Mean Corpuscular 95.5 Volume Mean Corpuscular 31.8 Hemoglobin Mean Corpuscular 33.3 Hemoglobin Concent Red Cell 13.2 Distribution Width Platelet Count 251 Mean Platelet Volume 8.6 Immature 3.400 H Granulocytes % Neutrophils % 82.1 H Lymphocytes % 4.4 L Monocytes % 7.3 Eosinophils % 2.2 Basophils % 0.6 Nucleated Red Blood 0.2 H Cells % Immature 0.420 H Granulocytes # Neutrophils # 10.2 H Lymphocytes # 0.6 L Monocytes # 0.9 Eosinophils # 0.3 Basophils # 0.1 Nucleated Red Blood 0.0 Cells # Test 01/01/19 05:56 01/01/19 07:45 Sodium Level 142 Potassium Level 4.4 Chloride Level 96 L Carbon Dioxide Level 32 H Anion Gap 14 H Blood Urea Nitrogen 46 H Creatinine 4.99 H Est Glomerular Filtrat Rate mL/min Glucose Level 144 Calcium Level 9.4 Bedside Glucose 113 Medications Current Medications Albumin Human 50 ml @ 100 mls/hr WITH DIALYSIS PRN IV SBP < 90 DURING DIALYSIS Last administered on 12/29/18 11:06; Admin Dose 100 MLS/HR; Start 12/26/18 at 23:00 Hydralazine HCl (Apresoline) 75 mg TID PO Last administered on 01/01/19 08:19; Admin Dose 75 MG; Start 12/27/18 at 09:00 Acetaminophen (Tylenol Tab) 650 mg Q6H PRN PO MILD PAIN(1-3)OR ELEVATED TEMP Last administered on 12/31/18 21:17; Admin Dose 650 MG; Start 12/27/18 at 09:00 Atorvastatin Calcium (Lipitor) 20 mg QHS PO Last administered on 12/31/18 21:05; Admin Dose 20 MG; Start 12/27/18 at 21:00 Clonidine HCl (Catapres-Tts 3 Patch) 0.3 patch Q7D TRANSDERM Last administered on 12/27/18 20:30; Admin Dose 0.3 PATCH; Start 12/27/18 at 11:00 Doxazosin Mesylate (Cardura) 6 mg HS PO Last administered on 12/31/18 21:52; Admin Dose 6 MG; Start 12/27/18 at 21:00 Levothyroxine Sodium (Synthroid) 75 mcg BEFORE BREAKFAST PO Last administered on 12/31/18 05:22; Admin Dose 75 MCG; Start 12/27/18 at 09:30 Losartan Potassium (Cozaar) 50 mg BID PO Last administered on 01/01/19 08:18; Admin Dose 50 MG; Start 12/27/18 at 09:30 Nifedipine (Procardia Xl) 60 mg QAM PO Last administered on 01/01/19 08:17; Admin Dose 60 MG; Start 12/27/18 at 09:30 Pantoprazole (Protonix Tab) 40 mg DAILY@0600 PO Last administered on 12/31/18 05:22; Admin Dose 40 MG; Start 12/27/18 at 09:30 Sertraline HCl (Zoloft) 50 mg DAILY PO Last administered on 01/01/19 08:17; Admin Dose 50 MG; Start 12/27/18 at 09:30 Epoetin Vince (Epogen (Esrd)) 10,000 units MoWeFr@17 SC Last administered on 12/30/18 17:09; Admin Dose 10,000 UNITS; Start 12/27/18 at 17:00 Multivit/Ca Carb/ B Cmplx/FA/Prenat (Praveena-Bonifacio) 1 tab DAILY PO Last administered on 01/01/19 08:18; Admin Dose 1 TAB; Start 12/27/18 at 09:30 Diagnostic Test (Pha) (Accu-Chek) 1 ea 02 XX Last administered on 12/31/18at 01:50; Admin Dose 1 EA; Start 12/28/18 at 02:00 Linagliptin (Tradjenta) 5 mg DAILY PO Last administered on 12/31/18 07:54; Admin Dose 5 MG; Start 12/27/18 at 09:30 Miscellaneous Information 1 ea NOTE XX ; Start 12/27/18 at 10:00 Glucose (Glutose) 15 gm Q15M PRN PO DECREASED GLUCOSE; Start 12/27/18 at 10:00 Glucose (Glutose) 22.5 gm Q15M PRN PO DECREASED GLUCOSE; Start 12/27/18 at 10:00 Dextrose (D50w Syringe) 25 ml Q15M PRN IV DECREASED GLUCOSE; Start 12/27/18 at 10:00 Dextrose (D50w Syringe) 50 ml Q15M PRN IV DECREASED GLUCOSE; Start 12/27/18 at 10:00 Glucagon (Glucagen) 1 mg Q15M PRN IM DECREASED GLUCOSE; Start 12/27/18 at 10:00 Glucose (Glutose) 15 gm Q15M PRN BUCCAL DECREASED GLUCOSE Last administered on 12/28/18 08:24; Admin Dose 15 GM; Start 12/27/18 at 10:00 Insulin Aspart (Novolog Insulin Pen) (Adult SC Insulin - Mild Algorithm)... AC MEALS SC Last administered on 12/31/18 17:24; Admin Dose 1 UNIT; Start 12/27/18 at 11:20 Ferric Sodium Gluconate Complex 125 mg/Sodium Chloride 110 ml @ 110 mls/hr DAILY@1300 IVPB Last administered on 12/31/18at 13:01; Admin Dose 110 MLS/HR; Start 12/28/18 at 13:00; Stop 01/01/19 at 13:59 Insulin Detemir (Levemir) 6 units HS SC Last administered on 12/31/18at 21:22; Admin Dose 6 UNITS; Start 12/31/18 at 21:00 Amoxicillin/ Clavulanate Potassium (Augmentin) 500 mg DAILY PO Last administered on 01/01/19at 08:22; Admin Dose 500 MG; Start 01/01/19 at 09:00 Assessment/Plan Hospital Course (Demo Recall) Assessment 1. Right pleural effusion, possibly secondary to ESRF 2. ESRF on HD 3. Hx DM Plan; 1. Encourage OOB 2. Chest x-ray reviewed shows patchy infiltrates and/or pulmonary edema. Continue HD. 3. Aspiration precautions 4. PT eval encourage out of bed 5. May require SNF placement, discussed with at bedside Overall prognosis guarded. RYDER CORBETT MD, [facility] Jan 01, 2019 11:15
--- NOTE | 2019-01-01 11:24 | PN ---
Date/Time of Note Date/Time of Note DATE: 01/01/19 TIME: 11:20 Assessment/Plan VTE Prophylaxis Risk score (from Ns)>0 risk: 4 SCD applied (from Ns): Yes Pharmacological prophylaxis: NA/contraindicated Pharm contraindication: renal impairment Lines/Catheters IV C[facility] [place] Urinary Cath still in place: No Assessment/Plan Assessment/Plan A: acute exacerbation of chf pleural effusion esrd pneumonia DM HTN P: abx per ID dialysis per renal cards w/u in progress cont current rx Result Diagram: 01/01/19 0555 01/01/19 0556 Results 24hrs Laboratory Tests Test 12/31/18 12:01 12/31/18 17:18 12/31/18 21:16 01/01/19 05:55 Bedside Glucose 215 149 211 White Blood Count 12.4 H Red Blood Count 3.14 L Hemoglobin 10.0 L Hematocrit 30.0 L Mean Corpuscular 95.5 Volume Mean Corpuscular 31.8 Hemoglobin Mean Corpuscular 33.3 Hemoglobin Concent Red Cell 13.2 Distribution Width Platelet Count 251 Mean Platelet Volume 8.6 Immature 3.400 H Granulocytes % Neutrophils % 82.1 H Lymphocytes % 4.4 L Monocytes % 7.3 Eosinophils % 2.2 Basophils % 0.6 Nucleated Red Blood 0.2 H Cells % Immature 0.420 H Granulocytes # Neutrophils # 10.2 H Lymphocytes # 0.6 L Monocytes # 0.9 Eosinophils # 0.3 Basophils # 0.1 Nucleated Red Blood 0.0 Cells # Test 01/01/19 05:56 01/01/19 07:45 Sodium Level 142 Potassium Level 4.4 Chloride Level 96 L Carbon Dioxide Level 32 H Anion Gap 14 H Blood Urea Nitrogen 46 H Creatinine 4.99 H Est Glomerular Filtrat Rate mL/min Glucose Level 144 Calcium Level 9.4 Bedside Glucose 113 Subjective 24 Hr Interval Summary Free Text/Dictation Pt feeling a bit better. Still coughing but a bit less. Changed from azithromycin to augmentin. Has a bit of stomach upset. No cp, sob. Nuclear stress test done this am. Exam/Review of Systems Exam Vitals Vital Signs Date Temp Pulse Resp B/P (MAP) Pulse Ox O2 O2 Flow FiO2 Time Delivery Rate 01/01/19 75 08:23 01/01/19 Nasal 2.0 07:30 Cannula 01/01/19 98.7 16 134/63 98 07:26 (86) 12/31/18 27 21:05 Intake and Output 12/31/18 12/31/18 01/01/19 1515:00 23:00 07:00 IntakeIntake Total 800 ml 200 ml OutputOutput Total 2400 ml BalanceBalance -1600 ml 200 ml Exam gen- nad, nontoxic lungs- sl decreased bs rt base heart- RRR abd- +BS, soft, min epigastric pain ext- no edema Results Results 24hrs Laboratory Tests Test 12/31/18 12:01 12/31/18 17:18 12/31/18 21:16 01/01/19 05:55 Bedside Glucose 215 149 211 White Blood Count 12.4 H Red Blood Count 3.14 L Hemoglobin 10.0 L Hematocrit 30.0 L Mean Corpuscular 95.5 Volume Mean Corpuscular 31.8 Hemoglobin Mean Corpuscular 33.3 Hemoglobin Concent Red Cell 13.2 Distribution Width Platelet Count 251 Mean Platelet Volume 8.6 Immature 3.400 H Granulocytes % Neutrophils % 82.1 H Lymphocytes % 4.4 L Monocytes % 7.3 Eosinophils % 2.2 Basophils % 0.6 Nucleated Red Blood 0.2 H Cells % Immature 0.420 H Granulocytes # Neutrophils # 10.2 H Lymphocytes # 0.6 L Monocytes # 0.9 Eosinophils # 0.3 Basophils # 0.1 Nucleated Red Blood 0.0 Cells # Test 01/01/19 05:56 01/01/19 07:45 Sodium Level 142 Potassium Level 4.4 Chloride Level 96 L Carbon Dioxide Level 32 H Anion Gap 14 H Blood Urea Nitrogen 46 H Creatinine 4.99 H Est Glomerular Filtrat Rate mL/min Glucose Level 144 Calcium Level 9.4 Bedside Glucose 113 Medications Medication Current Medications Albumin Human 50 ml @ 100 mls/hr WITH DIALYSIS PRN IV SBP < 90 DURING DIALYSIS Last administered on 12/29/18at 11:06; Admin Dose 100 MLS/HR; Start 12/26/18 at 23:00 Hydralazine HCl (Apresoline) 75 mg TID PO Last administered on 01/01/19at 08:19; Admin Dose 75 MG; Start 12/27/18 at 09:00 Acetaminophen (Tylenol Tab) 650 mg Q6H PRN PO MILD PAIN(1-3)OR ELEVATED TEMP Last administered on 12/31/18 21:17; Admin Dose 650 MG; Start 12/27/18 at 09:00 Atorvastatin Calcium (Lipitor) 20 mg QHS PO Last administered on 12/31/18 21:05; Admin Dose 20 MG; Start 12/27/18 at 21:00 Clonidine HCl (Catapres-Tts 3 Patch) 0.3 patch Q7D TRANSDERM Last administered on 12/27/18 20:30; Admin Dose 0.3 PATCH; Start 12/27/18 at 11:00 Doxazosin Mesylate (Cardura) 6 mg HS PO Last administered on 12/31/18 21:52; Admin Dose 6 MG; Start 12/27/18 at 21:00 Levothyroxine Sodium (Synthroid) 75 mcg BEFORE BREAKFAST PO Last administered on 12/31/18 05:22; Admin Dose 75 MCG; Start 12/27/18 at 09:30 Losartan Potassium (Cozaar) 50 mg BID PO Last administered on 01/01/19 08:18; Admin Dose 50 MG; Start 12/27/18 at 09:30 Nifedipine (Procardia Xl) 60 mg QAM PO Last administered on 01/01/19 08:17; Admin Dose 60 MG; Start 12/27/18 at 09:30 Pantoprazole (Protonix Tab) 40 mg DAILY@0600 PO Last administered on 12/31/18 05:22; Admin Dose 40 MG; Start 12/27/18 at 09:30 Sertraline HCl (Zoloft) 50 mg DAILY PO Last administered on 01/01/19 08:17; Admin Dose 50 MG; Start 12/27/18 at 09:30 Epoetin Vince (Epogen (Esrd)) 10,000 units MoWeFr@17 SC Last administered on 12/30/18 17:09; Admin Dose 10,000 UNITS; Start 12/27/18 at 17:00 Multivit/Ca Carb/ B Cmplx/FA/Prenat (Praveena-Bonifacio) 1 tab DAILY PO Last administered on 01/01/19 08:18; Admin Dose 1 TAB; Start 12/27/18 at 09:30 Diagnostic Test (Pha) (Accu-Chek) 1 ea 02 XX Last administered on 12/31/18 01:50; Admin Dose 1 EA; Start 12/28/18 at 02:00 Linagliptin (Tradjenta) 5 mg DAILY PO Last administered on 12/31/18at 07:54; Admin Dose 5 MG; Start 12/27/18 at 09:30 Miscellaneous Information 1 ea NOTE XX ; Start 12/27/18 at 10:00 Glucose (Glutose) 15 gm Q15M PRN PO DECREASED GLUCOSE; Start 12/27/18 at 10:00 Glucose (Glutose) 22.5 gm Q15M PRN PO DECREASED GLUCOSE; Start 12/27/18 at 10:00 Dextrose (D50w Syringe) 25 ml Q15M PRN IV DECREASED GLUCOSE; Start 12/27/18 at 10:00 Dextrose (D50w Syringe) 50 ml Q15M PRN IV DECREASED GLUCOSE; Start 12/27/18 at 10:00 Glucagon (Glucagen) 1 mg Q15M PRN IM DECREASED GLUCOSE; Start 12/27/18 at 10:00 Glucose (Glutose) 15 gm Q15M PRN BUCCAL DECREASED GLUCOSE Last administered on 12/28/18at 08:24; Admin Dose 15 GM; Start 12/27/18 at 10:00 Insulin Aspart (Novolog Insulin Pen) (Adult SC Insulin - Mild Algorithm)... AC MEALS SC Last administered on 12/31/18 17:24; Admin Dose 1 UNIT; Start 12/27/18 at 11:20 Ferric Sodium Gluconate Complex 125 mg/Sodium Chloride 110 ml @ 110 mls/hr DAILY@1300 IVPB Last administered on 12/31/18 13:01; Admin Dose 110 MLS/HR; Start 12/28/18 at 13:00; Stop 01/01/19 at 13:59 Insulin Detemir (Levemir) 6 units HS SC Last administered on 12/31/18 21:22; Admin Dose 6 UNITS; Start 12/31/18 at 21:00 Amoxicillin/ Clavulanate Potassium (Augmentin) 500 mg DAILY PO Last administered on 01/01/19 08:22; Admin Dose 500 MG; Start 01/01/19 at 09:00 IGNACIO WILLIS MD Jan 01, 2019 11:24
[2019-01-01] MEDS: SOD FERRIC GLUC COMPLX 125 MG in SOD CHLORIDE 0.9% 100 ML IVPB SCH (12:29)
--- NOTE | 2019-01-01 17:22 | CONS ---
Assessment/Plan Assessment/Plan Hospital Course (Demo Recall) - Acute on chronic diastolic heart failure with uncontrolled htn- volume overloaded, s/p thoracentesis with improvement. cont iHD for fluid mgmt and bp control - Hypertension- difficult to control, avoid atenolol given chb with medication in past. - ESRD on iHD - CAD- dense calcification non CT scan - DM2-difficult to control Recommendations: - cont iHD - increase nifedipine to 90mg po daily - cont hydralazine 75mg po q8hinc - cont clonidine patch 0.3mg/daily - titrate bp meds - stress negative, no further cardiac testing recommended at this time Consultation Date/Type/Reason Admit Date/Time Dec 26, 2018 at 19:46 Initial Consult Date 12/27/18 Type of Consult Cardiology Requesting Provider: IGNACIO WILLIS MD Date/Time of Note DATE: 01/01/19 TIME: 17:17 24 HR Interval Summary Free Text/Dictation no acute events. had some loose stools yesterday, abx change no cp/pressure. sob stable not out of bed with pt yet as of this am tele reviewed: NSR no event s Detailed Summary Eyes: no complaints ENT: no complaints Respiratory: shortness of breath Cardiovascular: no complaints Gastrointestinal: diarrhea Exam/Review of Systems Exam Vitals Vital Signs Date Temp Pulse Resp B/P (MAP) Pulse Ox O2 O2 Flow FiO2 Time Delivery Rate 01/01/19 75 16:20 01/01/19 98.1 18 142/59 99 Nasal 15:29 (86) Cannula 01/01/19 2.0 12:00 12/31/18 27 21:05 Intake and Output 12/31/18 12/31/18 01/01/19 1515:00 23:00 07:00 IntakeIntake Total 800 ml 200 ml OutputOutput Total 2400 ml BalanceBalance -1600 ml 200 ml Exam Constitutional: alert, oriented Psych: no complaints Head: atraumatic, normocephalic Eyes: nl conjunctiva ENMT: mucosa pink and moist Neck: non-tender, supple, No jvd Respiratory: crackles mild barrera Cardiovascular: nl pulses, regular rate and rhythm, systolic murmur, No irregular rhythm Gastrointestinal: soft Musculoskeletal: nl extremities to inspection Extremities: normal pulses Neurological: [employer] II-XII intact Skin: nl turgor Results Result Diagram: 01/01/19 0555 01/01/19 0556 Results 24hrs Laboratory Tests Test 12/31/18 17:18 12/31/18 21:16 01/01/19 05:55 01/01/19 05:56 Bedside Glucose 149 211 White Blood Count 12.4 H Red Blood Count 3.14 L Hemoglobin 10.0 L Hematocrit 30.0 L Mean Corpuscular 95.5 Volume Mean Corpuscular 31.8 Hemoglobin Mean Corpuscular 33.3 Hemoglobin Concent Red Cell 13.2 Distribution Width Platelet Count 251 Mean Platelet Volume 8.6 Immature 3.400 H Granulocytes % Neutrophils % 82.1 H Lymphocytes % 4.4 L Monocytes % 7.3 Eosinophils % 2.2 Basophils % 0.6 Nucleated Red Blood 0.2 H Cells % Immature 0.420 H Granulocytes # Neutrophils # 10.2 H Lymphocytes # 0.6 L Monocytes # 0.9 Eosinophils # 0.3 Basophils # 0.1 Nucleated Red Blood 0.0 Cells # Sodium Level 142 Potassium Level 4.4 Chloride Level 96 L Carbon Dioxide Level 32 H Anion Gap 14 H Blood Urea Nitrogen 46 H Creatinine 4.99 H Est Glomerular Filtrat Rate mL/min Glucose Level 144 Calcium Level 9.4 Test 01/01/19 07:45 01/01/19 11:27 Bedside Glucose 113 136 Imaging Imaging stress test reviewed report 1. Negative myocardial perfusion scan. 2. There is no evidence for reversible ischemia. 3. Breast attenuation artifact of the distal anteroseptal wall. 4. Normal wall motion with normal ejection fraction of 58%. Medications Medication Current Medications Albumin Human 50 ml @ 100 mls/hr WITH DIALYSIS PRN IV SBP < 90 DURING DIALYSIS Last administered on 12/29/18at 11:06; Admin Dose 100 MLS/HR; Start 12/26/18 at 23:00 Hydralazine HCl (Apresoline) 75 mg TID PO Last administered on 01/01/19at 12:30; Admin Dose 75 MG; Start 12/27/18 at 09:00 Acetaminophen (Tylenol Tab) 650 mg Q6H PRN PO MILD PAIN(1-3)OR ELEVATED TEMP Last administered on 12/31/18at 21:17; Admin Dose 650 MG; Start 12/27/18 at 09:00 Atorvastatin Calcium (Lipitor) 20 mg QHS PO Last administered on 12/31/18at 21:05; Admin Dose 20 MG; Start 12/27/18 at 21:00 Clonidine HCl (Catapres-Tts 3 Patch) 0.3 patch Q7D TRANSDERM Last administered on 12/27/18 20:30; Admin Dose 0.3 PATCH; Start 12/27/18 at 11:00 Doxazosin Mesylate (Cardura) 6 mg HS PO Last administered on 12/31/18 21:52; Admin Dose 6 MG; Start 12/27/18 at 21:00 Levothyroxine Sodium (Synthroid) 75 mcg BEFORE BREAKFAST PO Last administered on 12/31/18 05:22; Admin Dose 75 MCG; Start 12/27/18 at 09:30 Losartan Potassium (Cozaar) 50 mg BID PO Last administered on 01/01/19 08:18; Admin Dose 50 MG; Start 12/27/18 at 09:30 Nifedipine (Procardia Xl) 60 mg QAM PO Last administered on 01/01/19 08:17; Admin Dose 60 MG; Start 12/27/18 at 09:30 Pantoprazole (Protonix Tab) 40 mg DAILY@0600 PO Last administered on 12/31/18 05:22; Admin Dose 40 MG; Start 12/27/18 at 09:30 Sertraline HCl (Zoloft) 50 mg DAILY PO Last administered on 01/01/19 08:17; Admin Dose 50 MG; Start 12/27/18 at 09:30 Epoetin Vince (Epogen (Esrd)) 10,000 units MoWeFr@17 SC Last administered on 12/30/18 17:09; Admin Dose 10,000 UNITS; Start 12/27/18 at 17:00 Multivit/Ca Carb/ B Cmplx/FA/Prenat (Praveena-Bonifacio) 1 tab DAILY PO Last administered on 01/01/19 08:18; Admin Dose 1 TAB; Start 12/27/18 at 09:30 Diagnostic Test (Pha) (Accu-Chek) 1 ea 02 XX Last administered on 12/31/18 01:50; Admin Dose 1 EA; Start 12/28/18 at 02:00 Linagliptin (Tradjenta) 5 mg DAILY PO Last administered on 12/31/18 07:54; Admin Dose 5 MG; Start 12/27/18 at 09:30 Miscellaneous Information 1 ea NOTE XX ; Start 12/27/18 at 10:00 Glucose (Glutose) 15 gm Q15M PRN PO DECREASED GLUCOSE; Start 12/27/18 at 10:00 Glucose (Glutose) 22.5 gm Q15M PRN PO DECREASED GLUCOSE; Start 12/27/18 at 10:00 Dextrose (D50w Syringe) 25 ml Q15M PRN IV DECREASED GLUCOSE; Start 12/27/18 at 10:00 Dextrose (D50w Syringe) 50 ml Q15M PRN IV DECREASED GLUCOSE; Start 12/27/18 at 10:00 Glucagon (Glucagen) 1 mg Q15M PRN IM DECREASED GLUCOSE; Start 12/27/18 at 10:00 Glucose (Glutose) 15 gm Q15M PRN BUCCAL DECREASED GLUCOSE Last administered on 12/28/18 08:24; Admin Dose 15 GM; Start 12/27/18 at 10:00 Insulin Aspart (Novolog Insulin Pen) (Adult SC Insulin - Mild Algorithm)... AC MEALS SC Last administered on 12/31/18at 17:24; Admin Dose 1 UNIT; Start 12/27/18 at 11:20 Insulin Detemir (Levemir) 6 units HS SC Last administered on 12/31/18 21:22; Admin Dose 6 UNITS; Start 12/31/18 at 21:00 Amoxicillin/ Clavulanate Potassium (Augmentin) 500 mg DAILY PO Last administered on 01/01/19 08:22; Admin Dose 500 MG; Start 01/01/19 at 09:00 SINDI HERRON Jan 01, 2019 17:22
[2019-01-01] MEDS: EPOETIN 10000 UNITS/1 ML INJ (ESRD) SC SCH (17:29)
--- NOTE | 2019-01-01 18:34 | OPR ---
ECG PORTION OF NUCLEAR STRESS TEST DATE OF PROCEDURE 01/01/2019 REFERRING PHYSICIAN: Ignacio Chambers MD. PROCEDURE DESCRIPTION: The patient was brought to stress lab in fasting state and stable condition. 0.4MG of IV Lexiscan was given IV over 10 seconds followed by radiotracer. The patient tolerated procedure well without complication and was taken to the stress lab for further imaging portion of the test. FINDINGS: Resting ECG: Normal sinus rhythm. No resting ST-T wave and ST or T-wave abnormalities. Stress ECG: No ischemic ST changes with stress. No arrhythmias with stress. Normal blood pressure response recess. No significant symptoms with stress. SUMMARY: This ECG portion of the nuclear stress test showed no evidence of stress induced ischemia. Please see separately dictated perfusion imaging report for full and final details. Dictated By: SINDI HERRON MD AA/NTS Conf#: [id number] DID#: [id number] CC: IGNACIO CHAMBERS MD;*EndCC* MTDD
[2019-01-01] MEDS: ATORVASTATIN 20 MG TAB PO SCH (20:48)
[2019-01-01] MEDS: NIFEdipine (XL) 30 MG TAB PO SCH (20:49)
[2019-01-01] MEDS: DOXAZOSIN 2 MG TAB PO SCH (20:50)
[2019-01-01] MEDS: INSULIN DETEMIR [LEVEMIR] (100 UNITS/ML) SYG SC SCH (21:16)
[2019-01-02] VITALS (26 sets, daily range): BP systolic 119–168; BP diastolic 49–88; PULSE 69–84; RESP 16–24
[2019-01-02] MEDS: ACCU-CHEK XX SCH (02:00)
[2019-01-02] MEDS: LEVOTHYROXINE 75 MCG TAB PO SCH (06:39)
[2019-01-02] MEDS: PANTOPRAZOLE (EC) 40 MG TAB PO SCH (06:39)
[2019-01-02] MEDS: Insulin NOVOLOG SS MILD Algorithm (NPO/TPN/ENTERAL FEEDS) SC SCH ×3 (07:25→17:48)
[2019-01-02] MEDS: NIFEdipine (XL) 60 MG TAB PO SCH (08:36)
[2019-01-02] MEDS: LOSARTAN 50 MG TAB PO SCH ×2 (08:36→20:32)
[2019-01-02] MEDS: MULTIVIT/CA CARB/B CMPLX/FA TAB PO SCH (08:37)
[2019-01-02] MEDS: AMOXICILLIN/CLAV 500 MG TAB PO SCH (08:37)
[2019-01-02] MEDS: LINAGLIPTIN 5 MG TABLET PO SCH (08:37)
[2019-01-02] MEDS: SERTRALINE 50 MG TAB PO SCH (08:37)
--- NOTE | 2019-01-02 08:39 | CONS ---
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 labs are pending 12/30- h.flu in sputum, d/c ceftriaxone and will continue with azithro alone thru 01/04 01/01 - cough returned but good O2 sats change azithro to augmentin and continue thru 01/05 01/02 - although WBC is higher, symptomatically she is better and no other signs of new infection continue with augmentin thru 01/05 repeat CBC in a.m. 2) DM 3) ESRD 4) HTN 5) chest wall wound infection no further drainage and no sign of redness at prior site Consultation Date/Type/Reason Admit Date/Time Dec 26, 2018 at 19:46 Initial Consult Date 12/27/18 Type of Consult ID Requesting Provider: IGNACIO WILLIS MD Date/Time of Note DATE: 01/02/19 TIME: 08:37 24 HR Interval Summary Free Text/Dictation pt has a mild GARVEY no N, V she ate her breakfast well she is coughing less one loose stool yesterday no abd pain, dysuria Exam/Review of Systems Exam Vitals Vital Signs Date Temp Pulse Resp B/P (MAP) Pulse Ox O2 O2 Flow FiO2 Time Delivery Rate 01/02/19 98.1 75 18 119/56 99 Nasal 2.0 08:01 (77) Cannula 12/31/18 27 21:05 Intake and Output 01/01/19 01/01/19 01/02/19 1515:00 23:00 07:00 IntakeIntake Total 610 ml 300 ml BalanceBalance 610 ml 300 ml Constitutional: alert Eyes: nl sclera ENMT: mucosa pink and moist Respiratory: clear to auscultation Cardiovascular: regular rate and rhythm Gastrointestinal: soft, non-tender Results Result Diagram: 01/02/19 0637 01/02/19 0637 Results 24hrs Laboratory Tests Test 01/01/19 11:27 01/01/19 17:21 01/01/19 20:51 01/02/19 06:37 Bedside Glucose 136 245 H 267 H White Blood Count 16.3 #H Red Blood Count 3.08 L Hemoglobin 9.7 L Hematocrit 29.5 L Mean Corpuscular 95.8 Volume Mean Corpuscular 31.5 Hemoglobin Mean Corpuscular 32.9 Hemoglobin Concent Red Cell 13.3 Distribution Width Platelet Count 265 Mean Platelet Volume 8.6 Immature 2.000 H Granulocytes % Neutrophils % 83.0 H Lymphocytes % 6.0 L Monocytes % 6.0 Eosinophils % 2.4 Basophils % 0.6 Nucleated Red Blood 0.1 H Cells % Immature 0.330 H Granulocytes # Neutrophils # 13.5 H Lymphocytes # 1.0 Monocytes # 1.0 H Eosinophils # 0.4 Basophils # 0.1 Nucleated Red Blood 0.0 Cells # Sodium Level 135 Potassium Level 4.6 Chloride Level 96 L Carbon Dioxide Level 26 Anion Gap 13 Blood Urea Nitrogen 67 H Creatinine 7.02 #H Est Glomerular Filtrat Rate mL/min Glucose Level 54 #L Calcium Level 9.1 Phosphorus Level 5.3 H Test 01/02/19 07:30 01/02/19 07:48 Bedside Glucose 53 L 89 Medications Medication Current Medications Albumin Human 50 ml @ 100 mls/hr WITH DIALYSIS PRN IV SBP < 90 DURING DIALYSIS Last administered on 12/29/18 11:06; Admin Dose 100 MLS/HR; Start 12/26/18 at 23:00 Hydralazine HCl (Apresoline) 75 mg TID PO Last administered on 01/01/19 20:49; Admin Dose 75 MG; Start 12/27/18 at 09:00 Acetaminophen (Tylenol Tab) 650 mg Q6H PRN PO MILD PAIN(1-3)OR ELEVATED TEMP Last administered on 12/31/18 21:17; Admin Dose 650 MG; Start 12/27/18 at 09:00 Atorvastatin Calcium (Lipitor) 20 mg QHS PO Last administered on 01/01/19 20:48; Admin Dose 20 MG; Start 12/27/18 at 21:00 Clonidine HCl (Catapres-Tts 3 Patch) 0.3 patch Q7D TRANSDERM Last administered on 12/27/18 20:30; Admin Dose 0.3 PATCH; Start 12/27/18 at 11:00 Doxazosin Mesylate (Cardura) 6 mg HS PO Last administered on 12/31/18 21:52; Admin Dose 6 MG; Start 12/27/18 at 21:00 Levothyroxine Sodium (Synthroid) 75 mcg BEFORE BREAKFAST PO Last administered on 01/02/19 06:39; Admin Dose 75 MCG; Start 12/27/18 at 09:30 Losartan Potassium (Cozaar) 50 mg BID PO Last administered on 01/01/19 20:49; Admin Dose 50 MG; Start 12/27/18 at 09:30 Nifedipine (Procardia Xl) 60 mg QAM PO Last administered on 01/01/19 08:17; Admin Dose 60 MG; Start 12/27/18 at 09:30 Pantoprazole (Protonix Tab) 40 mg DAILY@0600 PO Last administered on 01/02/19 06:39; Admin Dose 40 MG; Start 12/27/18 at 09:30 Sertraline HCl (Zoloft) 50 mg DAILY PO Last administered on 01/01/19 08:17; Admin Dose 50 MG; Start 12/27/18 at 09:30 Epoetin Vince (Epogen (Esrd)) 10,000 units MoWeFr@17 SC Last administered on 01/01/19 17:29; Admin Dose 10,000 UNITS; Start 12/27/18 at 17:00 Multivit/Ca Carb/ B Cmplx/FA/Prenat (Praveena-Bonifacio) 1 tab DAILY PO Last administered on 01/01/19 08:18; Admin Dose 1 TAB; Start 12/27/18 at 09:30 Diagnostic Test (Pha) (Accu-Chek) 1 ea 02 XX Last administered on 12/31/18 01:50; Admin Dose 1 EA; Start 12/28/18 at 02:00 Linagliptin (Tradjenta) 5 mg DAILY PO Last administered on 12/31/18 07:54; Admin Dose 5 MG; Start 12/27/18 at 09:30 Miscellaneous Information 1 ea NOTE XX ; Start 12/27/18 at 10:00 Glucose (Glutose) 15 gm Q15M PRN PO DECREASED GLUCOSE; Start 12/27/18 at 10:00 Glucose (Glutose) 22.5 gm Q15M PRN PO DECREASED GLUCOSE; Start 12/27/18 at 10:00 Dextrose (D50w Syringe) 25 ml Q15M PRN IV DECREASED GLUCOSE; Start 12/27/18 at 10:00 Dextrose (D50w Syringe) 50 ml Q15M PRN IV DECREASED GLUCOSE; Start 12/27/18 at 10:00 Glucagon (Glucagen) 1 mg Q15M PRN IM DECREASED GLUCOSE; Start 12/27/18 at 10:00 Glucose (Glutose) 15 gm Q15M PRN BUCCAL DECREASED GLUCOSE Last administered on 12/28/18 08:24; Admin Dose 15 GM; Start 12/27/18 at 10:00 Insulin Aspart (Novolog Insulin Pen) (Adult SC Insulin - Mild Algorithm)... AC MEALS SC Last administered on 01/01/19 17:26; Admin Dose 3 UNIT; Start 12/27/18 at 11:20 Insulin Detemir (Levemir) 6 units HS SC Last administered on 01/01/19 21:16; Admin Dose 6 UNITS; Start 12/31/18 at 21:00 Amoxicillin/ Clavulanate Potassium (Augmentin) 500 mg DAILY PO Last administered on 01/01/19 08:22; Admin Dose 500 MG; Start 01/01/19 at 09:00 Nifedipine (Procardia Xl) 30 mg QPM PO Last administered on 01/01/19 20:49; Admin Dose 30 MG; Start 01/01/19 at 21:00 PAUL MARTINEZ MD Jan 02, 2019 08:39
--- NOTE | 2019-01-02 10:02 | CONS ---
Assessment/Plan Assessment/Plan Assessment/Plan (Daily) 1. CKD sec to DM, to have HD today 2. Pneumonia resolving, abx per ID 3. Diff to control BP, now well controlled on current regimen 4. Now more mobile per and anticipate dc tomm with next hd Sat Consultation Date/Type/Reason Admit Date/Time Dec 26, 2018 at 19:46 Initial Consult Date 12/27/18 Requesting Provider: IGNACIO WILLIS MD Date/Time of Note DATE: 01/02/19 TIME: 10:00 Detailed Summary Respiratory: cough (is less and is sob) Cardiovascular: No chest pain Gastrointestinal: no complaints (with inc appetite) Genitourinary: no complaints Exam/Review of Systems Exam Vitals Vital Signs Date Temp Pulse Resp B/P (MAP) Pulse Ox O2 O2 Flow FiO2 Time Delivery Rate 01/02/19 75 08:37 01/02/19 98.1 18 119/56 99 Nasal 2.0 08:01 (77) Cannula 12/31/18 27 21:05 Intake and Output 01/01/19 01/01/19 01/02/19 1515:00 23:00 07:00 IntakeIntake Total 610 ml 300 ml BalanceBalance 610 ml 300 ml Neck: No jvd Respiratory: diminished breath sounds, other (few rhonchi and dry rales bilat) Cardiovascular: regular rate and rhythm; No gallop Gastrointestinal: soft Extremities: No edema Results Result Diagram: 01/02/19 0637 01/02/19 0637 Results 24hrs Laboratory Tests Test 01/01/19 11:27 01/01/19 17:21 01/01/19 20:51 01/02/19 06:37 Bedside Glucose 136 245 H 267 H White Blood Count 16.3 #H Red Blood Count 3.08 L Hemoglobin 9.7 L Hematocrit 29.5 L Mean Corpuscular 95.8 Volume Mean Corpuscular 31.5 Hemoglobin Mean Corpuscular 32.9 Hemoglobin Concent Red Cell 13.3 Distribution Width Platelet Count 265 Mean Platelet Volume 8.6 Immature 2.000 H Granulocytes % Neutrophils % 83.0 H Lymphocytes % 6.0 L Monocytes % 6.0 Eosinophils % 2.4 Basophils % 0.6 Nucleated Red Blood 0.1 H Cells % Immature 0.330 H Granulocytes # Neutrophils # 13.5 H Lymphocytes # 1.0 Monocytes # 1.0 H Eosinophils # 0.4 Basophils # 0.1 Nucleated Red Blood 0.0 Cells # Sodium Level 135 Potassium Level 4.6 Chloride Level 96 L Carbon Dioxide Level 26 Anion Gap 13 Blood Urea Nitrogen 67 H Creatinine 7.02 #H Est Glomerular Filtrat Rate mL/min Glucose Level 54 #L Calcium Level 9.1 Phosphorus Level 5.3 H Test 01/02/19 07:30 01/02/19 07:48 Bedside Glucose 53 L 89 Medications Medication Current Medications Albumin Human 50 ml @ 100 mls/hr WITH DIALYSIS PRN IV SBP < 90 DURING DIALYSIS Last administered on 12/29/18 11:06; Admin Dose 100 MLS/HR; Start 12/26/18 at 23:00 Hydralazine HCl (Apresoline) 75 mg TID PO Last administered on 01/01/19 20:49; Admin Dose 75 MG; Start 12/27/18 at 09:00 Acetaminophen (Tylenol Tab) 650 mg Q6H PRN PO MILD PAIN(1-3)OR ELEVATED TEMP Last administered on 12/31/18 21:17; Admin Dose 650 MG; Start 12/27/18 at 09:00 Atorvastatin Calcium (Lipitor) 20 mg QHS PO Last administered on 01/01/19 20:48; Admin Dose 20 MG; Start 12/27/18 at 21:00 Clonidine HCl (Catapres-Tts 3 Patch) 0.3 patch Q7D TRANSDERM Last administered on 12/27/18 20:30; Admin Dose 0.3 PATCH; Start 12/27/18 at 11:00 Doxazosin Mesylate (Cardura) 6 mg HS PO Last administered on 12/31/18 21:52; Admin Dose 6 MG; Start 12/27/18 at 21:00 Levothyroxine Sodium (Synthroid) 75 mcg BEFORE BREAKFAST PO Last administered on 01/02/19 06:39; Admin Dose 75 MCG; Start 12/27/18 at 09:30 Losartan Potassium (Cozaar) 50 mg BID PO Last administered on 01/01/19 20:49; Admin Dose 50 MG; Start 12/27/18 at 09:30 Nifedipine (Procardia Xl) 60 mg QAM PO Last administered on 01/01/19 08:17; Admin Dose 60 MG; Start 12/27/18 at 09:30 Pantoprazole (Protonix Tab) 40 mg DAILY@0600 PO Last administered on 01/02/19 06:39; Admin Dose 40 MG; Start 12/27/18 at 09:30 Sertraline HCl (Zoloft) 50 mg DAILY PO Last administered on 01/02/19 08:37; A dmin Dose 50 MG; Start 12/27/18 at 09:30 Epoetin Vince (Epogen (Esrd)) 10,000 units MoWeFr@17 SC Last administered on 01/01/19 17:29; Admin Dose 10,000 UNITS; Start 12/27/18 at 17:00 Multivit/Ca Carb/ B Cmplx/FA/Prenat (Praveena-Bonifacio) 1 tab DAILY PO Last administered on 01/02/19 08:37; Admin Dose 1 TAB; Start 12/27/18 at 09:30 Diagnostic Test (Pha) (Accu-Chek) 1 ea 02 XX Last administered on 12/31/18at 01:50; Admin Dose 1 EA; Start 12/28/18 at 02:00 Linagliptin (Tradjenta) 5 mg DAILY PO Last administered on 12/31/18 07:54; Admin Dose 5 MG; Start 12/27/18 at 09:30 Miscellaneous Information 1 ea NOTE XX ; Start 12/27/18 at 10:00 Glucose (Glutose) 15 gm Q15M PRN PO DECREASED GLUCOSE; Start 12/27/18 at 10:00 Glucose (Glutose) 22.5 gm Q15M PRN PO DECREASED GLUCOSE; Start 12/27/18 at 10:00 Dextrose (D50w Syringe) 25 ml Q15M PRN IV DECREASED GLUCOSE; Start 12/27/18 at 10:00 Dextrose (D50w Syringe) 50 ml Q15M PRN IV DECREASED GLUCOSE; Start 12/27/18 at 10:00 Glucagon (Glucagen) 1 mg Q15M PRN IM DECREASED GLUCOSE; Start 12/27/18 at 10:00 Glucose (Glutose) 15 gm Q15M PRN BUCCAL DECREASED GLUCOSE Last administered on 12/28/18 08:24; Admin Dose 15 GM; Start 12/27/18 at 10:00 Insulin Aspart (Novolog Insulin Pen) (Adult SC Insulin - Mild Algorithm)... AC MEALS SC Last administered on 01/01/19 17:26; Admin Dose 3 UNIT; Start 12/27/18 at 11:20 Insulin Detemir (Levemir) 6 units HS SC Last administered on 01/01/19 21:16; Admin Dose 6 UNITS; Start 12/31/18 at 21:00 Amoxicillin/ Clavulanate Potassium (Augmentin) 500 mg DAILY PO Last administered on 01/02/19 08:37; Admin Dose 500 MG; Start 01/01/19 at 09:00 Nifedipine (Procardia Xl) 30 mg QPM PO Last administered on 01/01/19at 20:49; Admin Dose 30 MG; Start 01/01/19 at 21:00 RONNIE VASQUEZ MD Jan 02, 2019 10:02
--- NOTE | 2019-01-02 11:37 | CONS ---
Consult Date/Type/Reason Admit Date/Time Dec 26, 2018 at 19:46 Initial Consult Date 12/27/18 Type of Consult Pulmonary Requesting Provider: IGNACIO WILLIS MD Date/Time of Note DATE: 01/02/19 TIME: 11:36 Subjective Remains comfortable no respiratory distress this morning Objective Vital Signs Date Temp Pulse Resp B/P (MAP) Pulse Ox O2 O2 Flow FiO2 Time Delivery Rate 01/02/19 75 08:37 01/02/19 98.1 18 119/56 99 Nasal 2.0 08:01 (77) Cannula 12/31/18 27 21:05 Intake and Output 01/01/19 01/01/19 01/02/19 1515:00 23:00 07:00 IntakeIntake Total 610 ml 300 ml BalanceBalance 610 ml 300 ml Exam GENERAL: Elderly appearing lady comfortable at rest no acute distress VITAL SIGNS: per chart NECK: Supple. No JVD or lymphadenopathy. CARDIAC EXAM: S1, S2. No added sounds or murmurs. CHEST: Diminished air entry bilaterally ABDOMEN: Soft, nontender. No guarding or rebound. EXTREMITIES: No cyanosis, clubbing or edema. NEUROLOGIC: Generalized weakness. No focal deficits. Vent Setting Fraction of Inspired Oxygen pe: 27 Results/Medications Result Diagram: 01/02/19 0637 01/02/19 0637 Results 24 hrs Laboratory Tests Test 01/01/19 17:21 01/01/19 20:51 01/02/19 06:37 01/02/19 07:30 Bedside Glucose 245 H 267 H 53 L White Blood Count 16.3 #H Red Blood Count 3.08 L Hemoglobin 9.7 L Hematocrit 29.5 L Mean Corpuscular 95.8 Volume Mean Corpuscular 31.5 Hemoglobin Mean Corpuscular 32.9 Hemoglobin Concent Red Cell 13.3 Distribution Width Platelet Count 265 Mean Platelet Volume 8.6 Immature 2.000 H Granulocytes % Neutrophils % 83.0 H Lymphocytes % 6.0 L Monocytes % 6.0 Eosinophils % 2.4 Basophils % 0.6 Nucleated Red Blood 0.1 H Cells % Immature 0.330 H Granulocytes # Neutrophils # 13.5 H Lymphocytes # 1.0 Monocytes # 1.0 H Eosinophils # 0.4 Basophils # 0.1 Nucleated Red Blood 0.0 Cells # Sodium Level 135 Potassium Level 4.6 Chloride Level 96 L Carbon Dioxide Level 26 Anion Gap 13 Blood Urea Nitrogen 67 H Creatinine 7.02 #H Est Glomerular Filtrat Rate mL/min Glucose Level 54 #L Calcium Level 9.1 Phosphorus Level 5.3 H Test 01/02/19 07:48 01/02/19 11:29 Bedside Glucose 89 210 Medications Current Medications Albumin Human 50 ml @ 100 mls/hr WITH DIALYSIS PRN IV SBP < 90 DURING DIALYSIS Last administered on 12/29/18 11:06; Admin Dose 100 MLS/HR; Start 12/26/18 at 23:00 Hydralazine HCl (Apresoline) 75 mg TID PO Last administered on 01/01/19 20:49; Admin Dose 75 MG; Start 12/27/18 at 09:00 Acetaminophen (Tylenol Tab) 650 mg Q6H PRN PO MILD PAIN(1-3)OR ELEVATED TEMP Last administered on 12/31/18 21:17; Admin Dose 650 MG; Start 12/27/18 at 09:00 Atorvastatin Calcium (Lipitor) 20 mg QHS PO Last administered on 01/01/19 20:48; Admin Dose 20 MG; Start 12/27/18 at 21:00 Clonidine HCl (Catapres-Tts 3 Patch) 0.3 patch Q7D TRANSDERM Last administered on 12/27/18 20:30; Admin Dose 0.3 PATCH; Start 12/27/18 at 11:00 Doxazosin Mesylate (Cardura) 6 mg HS PO Last administered on 12/31/18 21:52; Admin Dose 6 MG; Start 12/27/18 at 21:00 Levothyroxine Sodium (Synthroid) 75 mcg BEFORE BREAKFAST PO Last administered on 01/02/19 06:39; Admin Dose 75 MCG; Start 12/27/18 at 09:30 Losartan Potassium (Cozaar) 50 mg BID PO Last administered on 01/01/19 20:49; Admin Dose 50 MG; Start 12/27/18 at 09:30 Nifedipine (Procardia Xl) 60 mg QAM PO Last administered on 01/01/19 08:17; Admin Dose 60 MG; Start 12/27/18 at 09:30 Pantoprazole (Protonix Tab) 40 mg DAILY@0600 PO Last administered on 01/02/19 06:39; Admin Dose 40 MG; Start 12/27/18 at 09:30 Sertraline HCl (Zoloft) 50 mg DAILY PO Last administered on 01/02/19 08:37; Admin Dose 50 MG; Start 12/27/18 at 09:30 Epoetin Vince (Epogen (Esrd)) 10,000 units MoWeFr@17 SC Last administered on 01/01/19 17:29; Admin Dose 10,000 UNITS; Start 12/27/18 at 17:00 Multivit/Ca Carb/ B Cmplx/FA/Prenat (Praveena-Bonfiacio) 1 tab DAILY PO Last administered on 01/02/19 08:37; Admin Dose 1 TAB; Start 12/27/18 at 09:30 Diagnostic Test (Pha) (Accu-Chek) 1 ea 02 XX Last administered on 12/31/18 01:50; Admin Dose 1 EA; Start 12/28/18 at 02:00 Linagliptin (Tradjenta) 5 mg DAILY PO Last administered on 12/31/18 07:54; Admin Dose 5 MG; Start 12/27/18 at 09:30 Miscellaneous Information 1 ea NOTE XX ; Start 12/27/18 at 10:00 Glucose (Glutose) 15 gm Q15M PRN PO DECREASED GLUCOSE; Start 12/27/18 at 10:00 Glucose (Glutose) 22.5 gm Q15M PRN PO DECREASED GLUCOSE; Start 12/27/18 at 10:00 Dextrose (D50w Syringe) 25 ml Q15M PRN IV DECREASED GLUCOSE; Start 12/27/18 at 10:00 Dextrose (D50w Syringe) 50 ml Q15M PRN IV DECREASED GLUCOSE; Start 12/27/18 at 10:00 Glucagon (Glucagen) 1 mg Q15M PRN IM DECREASED GLUCOSE; Start 12/27/18 at 10:00 Glucose (Glutose) 15 gm Q15M PRN BUCCAL DECREASED GLUCOSE Last administered on 12/28/18 08:24; Admin Dose 15 GM; Start 12/27/18 at 10:00 Insulin Aspart (Novolog Insulin Pen) (Adult SC Insulin - Mild Algorithm)... AC MEALS SC Last administered on 01/01/19 17:26; Admin Dose 3 UNIT; Start 12/27/18 at 11:20 Insulin Detemir (Levemir) 6 units HS SC Last administered on 3/13/19at 21:16; Admin Dose 6 UNITS; Start 12/31/18 at 21:00 Amoxicillin/ Clavulanate Potassium (Augmentin) 500 mg DAILY PO Last administered on 01/02/19at 08:37; Admin Dose 500 MG; Start 01/01/19 at 09:00 Nifedipine (Procardia Xl) 30 mg QPM PO Last administered on 01/01/19at 20:49; Admin Dose 30 MG; Start 01/01/19 at 21:00 Assessment/Plan Hospital Course (Demo Recall) Assessment 1. Right pleural effusion, possibly secondary to ESRF 2. ESRF on HD 3. Hx DM Plan; 1. Encourage OOB 2. Chest x-ray reviewed shows patchy infiltrates and/or pulmonary edema. Con tinue HD. 3. Aspiration precautions 4. PT eval encourage out of bed 5. Negative myocardial perfusion scan noted. Agree with DC planning RYDER CORBETT MD, [facility] Jan 02, 2019 11:37
--- NOTE | 2019-01-02 13:18 | PN ---
Date/Time of Note Date/Time of Note DATE: 01/02/19 TIME: 13:14 Assessment/Plan VTE Prophylaxis Risk score (from Ns)>0 risk: 4 SCD applied (from Ns): Yes Pharmacological prophylaxis: NA/contraindicated Pharm contraindication: renal impairment Lines/Catheters [facility] [place] Urinary Cath still in place: No Assessment/Plan Assessment/Plan A: acute exacerbation of chf pleural effusion pneumonia esrd DM HTN P: cont current rx dialysis per renal abx per ID hopefully home tomorrow Result Diagram: 01/02/1937 01/02/1937 Results 24hrs Laboratory Tests Test 01/01/19 17:21 01/01/19 20:51 01/02/19 06:37 01/02/19 07:30 Bedside Glucose 245 H 267 H 53 L White Blood Count 16.3 #H Red Blood Count 3.08 L Hemoglobin 9.7 L Hematocrit 29.5 L Mean Corpuscular 95.8 Volume Mean Corpuscular 31.5 Hemoglobin Mean Corpuscular 32.9 Hemoglobin Concent Red Cell 13.3 Distribution Width Platelet Count 265 Mean Platelet Volume 8.6 Immature 2.000 H Granulocytes % Neutrophils % 83.0 H Lymphocytes % 6.0 L Monocytes % 6.0 Eosinophils % 2.4 Basophils % 0.6 Nucleated Red Blood 0.1 H Cells % Immature 0.330 H Granulocytes # Neutrophils # 13.5 H Lymphocytes # 1.0 Monocytes # 1.0 H Eosinophils # 0.4 Basophils # 0.1 Nucleated Red Blood 0.0 Cells # Sodium Level 135 Potassium Level 4.6 Chloride Level 96 L Carbon Dioxide Level 26 Anion Gap 13 Blood Urea Nitrogen 67 H Creatinine 7.02 #H Est Glomerular Filtrat Rate mL/min Glucose Level 54 #L Calcium Level 9.1 Phosphorus Level 5.3 H Test 01/02/19 07:48 01/02/19 11:29 Bedside Glucose 89 210 Subjective 24 Hr Interval Summary Free Text/Dictation Pt getting dialysis. Continues to improve. Mild indigestion, episodic, getting protonix. No brbpr, melena. Last bm yesterday. No sob, cough improved. Exam/Review of Systems Exam Vitals Vital Signs Date Temp Pulse Resp B/P (MAP) Pulse Ox O2 O2 Flow FiO2 Time Delivery Rate 01/02/19 98.9 75 18 127/57 100 Room Air 11:40 (80) 01/02/19 2.0 08:01 12/31/18 27 21:05 Intake and Output 01/01/19 01/01/19 01/02/19 1515:00 23:00 07:00 IntakeIntake Total 610 ml 300 ml BalanceBalance 610 ml 300 ml Exam gen- nad, nontoxic lungs- sl decreased bs rt base heart- RRR abd- +BS, soft, nontender ext- no edema Results Results 24hrs Laboratory Tests Test 01/01/19 17:21 01/01/19 20:51 01/02/19 06:37 01/02/19 07:30 Bedside Glucose 245 H 267 H 53 L White Blood Count 16.3 #H Red Blood Count 3.08 L Hemoglobin 9.7 L Hematocrit 29.5 L Mean Corpuscular 95.8 Volume Mean Corpuscular 31.5 Hemoglobin Mean Corpuscular 32.9 Hemoglobin Concent Red Cell 13.3 Distribution Width Platelet Count 265 Mean Platelet Volume 8.6 Immature 2.000 H Granulocytes % Neutrophils % 83.0 H Lymphocytes % 6.0 L Monocytes % 6.0 Eosinophils % 2.4 Basophils % 0.6 Nucleated Red Blood 0.1 H Cells % Immature 0.330 H Granulocytes # Neutrophils # 13.5 H Lymphocytes # 1.0 Monocytes # 1.0 H Eosinophils # 0.4 Basophils # 0.1 Nucleated Red Blood 0.0 Cells # Sodium Level 135 Potassium Level 4.6 Chloride Level 96 L Carbon Dioxide Level 26 Anion Gap 13 Blood Urea Nitrogen 67 H Creatinine 7.02 #H Est Glomerular Filtrat Rate mL/min Glucose Level 54 #L Calcium Level 9.1 Phosphorus Level 5.3 H Test 01/02/19 07:48 01/02/19 11:29 Bedside Glucose 89 210 Medications Medication Current Medications Albumin Human 50 ml @ 100 mls/hr WITH DIALYSIS PRN IV SBP < 90 DURING DIALYSIS Last administered on 12/29/18at 11:06; Admin Dose 100 MLS/HR; Start 12/26/18 at 23:00 Hydralazine HCl (Apresoline) 75 mg TID PO Last administered on 01/01/19at 20:49; Admin Dose 75 MG; Start 12/27/18 at 09:00 Acetaminophen (Tylenol Tab) 650 mg Q6H PRN PO MILD PAIN(1-3)OR ELEVATED TEMP Last administered on 12/31/18 21:17; Admin Dose 650 MG; Start 12/27/18 at 09:00 Atorvastatin Calcium (Lipitor) 20 mg QHS PO Last administered on 01/01/19 20:48; Admin Dose 20 MG; Start 12/27/18 at 21:00 Clonidine HCl (Catapres-Tts 3 Patch) 0.3 patch Q7D TRANSDERM Last administered on 12/27/18 20:30; Admin Dose 0.3 PATCH; Start 12/27/18 at 11:00 Doxazosin Mesylate (Cardura) 6 mg HS PO Last administered on 12/31/18 21:52; Admin Dose 6 MG; Start 12/27/18 at 21:00 Levothyroxine Sodium (Synthroid) 75 mcg BEFORE BREAKFAST PO Last administered on 01/02/19 06:39; Admin Dose 75 MCG; Start 12/27/18 at 09:30 Losartan Potassium (Cozaar) 50 mg BID PO Last administered on 01/01/19 20:49; Admin Dose 50 MG; Start 12/27/18 at 09:30 Nifedipine (Procardia Xl) 60 mg QAM PO Last administered on 01/01/19 08:17; Admin Dose 60 MG; Start 12/27/18 at 09:30 Pantoprazole (Protonix Tab) 40 mg DAILY@0600 PO Last administered on 01/02/19 06:39; Admin Dose 40 MG; Start 12/27/18 at 09:30 Sertraline HCl (Zoloft) 50 mg DAILY PO Last administered on 01/02/19 08:37; Admin Dose 50 MG; Start 12/27/18 at 09:30 Epoetin Vince (Epogen (Esrd)) 10,000 units MoWeFr@17 SC Last administered on 01/01/19 17:29; Admin Dose 10,000 UNITS; Start 12/27/18 at 17:00 Multivit/Ca Carb/ B Cmplx/FA/Prenat (Praveena-Bonifacio) 1 tab DAILY PO Last administered on 01/02/19 08:37; Admin Dose 1 TAB; Start 12/27/18 at 09:30 Diagnostic Test (Pha) (Accu-Chek) 1 ea 02 XX Last administered on 12/31/18 01:50; Admin Dose 1 EA; Start 12/28/18 at 02:00 Linagliptin (Tradjenta) 5 mg DAILY PO Last administered on 12/31/18at 07:54; Admin Dose 5 MG; Start 12/27/18 at 09:30 Miscellaneous Information 1 ea NOTE XX ; Start 12/27/18 at 10:00 Glucose (Glutose) 15 gm Q15M PRN PO DECREASED GLUCOSE; Start 12/27/18 at 10:00 Glucose (Glutose) 22.5 gm Q15M PRN PO DECREASED GLUCOSE; Start 12/27/18 at 10:00 Dextrose (D50w Syringe) 25 ml Q15M PRN IV DECREASED GLUCOSE; Start 12/27/18 at 10:00 Dextrose (D50w Syringe) 50 ml Q15M PRN IV DECREASED GLUCOSE; Start 12/27/18 at 10:00 Glucagon (Glucagen) 1 mg Q15M PRN IM DECREASED GLUCOSE; Start 12/27/18 at 10:00 Glucose (Glutose) 15 gm Q15M PRN BUCCAL DECREASED GLUCOSE Last administered on 12/28/18at 08:24; Admin Dose 15 GM; Start 12/27/18 at 10:00 Insulin Aspart (Novolog Insulin Pen) (Adult SC Insulin - Mild Algorithm)... AC MEALS SC Last administered on 01/02/19 11:45; Admin Dose 2 UNIT; Start 12/27/18 at 11:20 Insulin Detemir (Levemir) 6 units HS SC Last administered on 01/01/19at 21:16; Admin Dose 6 UNITS; Start 12/31/18 at 21:00 Amoxicillin/ Clavulanate Potassium (Augmentin) 500 mg DAILY PO Last administered on 01/02/19 08:37; Admin Dose 500 MG; Start 01/01/19 at 09:00 Nifedipine (Procardia Xl) 30 mg QPM PO Last administered on 01/01/19 20:49; Admin Dose 30 MG; Start 01/01/19 at 21:00 IGNACIO WILLIS MD Jan 02, 2019 13:18
--- NOTE | 2019-01-02 16:22 | CONS ---
Assessment/Plan Assessment/Plan Hospital Course (Demo Recall) - Acute on chronic diastolic heart failure with uncontrolled htn- volume overloaded, s/p thoracentesis with improvement. cont iHD for fluid mgmt and bp control - Hypertension- difficult to control, improved now. avoid bb given h/o chb - ESRD on iHD - CAD- dense calcification non CT scan - DM2-difficult to control Recommendations: - cont iHD - cont nifedipine to 60mg po qam and 30mg po qpm - cont hydralazine 75mg po q8hinc - cont clonidine patch 0.3mg/daily - titrate bp meds - stress negative, no further cardiac testing recommended at this time - am cxr, if stable consider dischage Consultation Date/Type/Reason Admit Date/Time Dec 26, 2018 at 19:46 Initial Consult Date 12/27/18 Type of Consult Cardiology Requesting Provider: IGNACIO WILLIS MD Date/Time of Note DATE: 01/02/19 TIME: 16:20 24 HR Interval Summary Free Text/Dictation no acute events. per family pt working with pt. able to ambulate with assist, does have fatigue. no cp sob improved. no cough/palp.dizziness tele reviewed: NSR no even ts Constitutional: no complaints Detailed Summary Eyes: no complaints ENT: no complaints Respiratory: shortness of breath Cardiovascular: no complaints Gastrointestinal: no complaints Exam/Review of Systems Exam Vitals Vital Signs Date Temp Pulse Resp B/P (MAP) Pulse Ox O2 O2 Flow FiO2 Time Delivery Rate 01/02/19 78 16:00 01/02/19 97.6 16 130/88 100 Room Air 15:30 (102) 01/02/19 2.0 12:35 12/31/18 27 21:05 Intake and Output 01/01/19 01/01/19 01/02/19 1515:00 23:00 07:00 IntakeIntake Total 610 ml 300 ml BalanceBalance 610 ml 300 ml Exam Constitutional: alert, oriented Psych: no complaints Head: atraumatic, normocephalic Eyes: nl conjunctiva ENMT: mucosa pink and moist Neck: non-tender, supple, No jvd Respiratory: crackles mild barrera Cardiovascular: nl pulses, regular rate and rhythm, systolic murmur, No irregular rhythm Gastrointestinal: soft Musculoskeletal: nl extremities to inspection Extremities: normal pulses 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 Skin: nl turgor Results Result Diagram: 01/02/19 0637 01/02/19 0637 Results 24hrs Laboratory Tests Test 01/01/19 17:21 01/01/19 20:51 01/02/19 06:37 01/02/19 07:30 Bedside Glucose 245 H 267 H 53 L White Blood Count 16.3 #H Red Blood Count 3.08 L Hemoglobin 9.7 L Hematocrit 29.5 L Mean Corpuscular 95.8 Volume Mean Corpuscular 31.5 Hemoglobin Mean Corpuscular 32.9 Hemoglobin Concent Red Cell 13.3 Distribution Width Platelet Count 265 Mean Platelet Volume 8.6 Immature 2.000 H Granulocytes % Neutrophils % 83.0 H Lymphocytes % 6.0 L Monocytes % 6.0 Eosinophils % 2.4 Basophils % 0.6 Nucleated Red Blood 0.1 H Cells % Immature 0.330 H Granulocytes # Neutrophils # 13.5 H Lymphocytes # 1.0 Monocytes # 1.0 H Eosinophils # 0.4 Basophils # 0.1 Nucleated Red Blood 0.0 Cells # Sodium Level 135 Potassium Level 4.6 Chloride Level 96 L Carbon Dioxide Level 26 Anion Gap 13 Blood Urea Nitrogen 67 H Creatinine 7.02 #H Est Glomerular Filtrat Rate mL/min Glucose Level 54 #L Calcium Level 9.1 Phosphorus Level 5.3 H Test 01/02/19 07:48 01/02/19 11:29 Bedside Glucose 89 210 Imaging Imaging cxr reports reviewed in emr Medications Medication Current Medications Albumin Human 50 ml @ 100 mls/hr WITH DIALYSIS PRN IV SBP < 90 DURING DIALYSIS Last administered on 12/29/18at 11:06; Admin Dose 100 MLS/HR; Start 12/26/18 at 23:00 Hydralazine HCl (Apresoline) 75 mg TID PO Last administered on 01/01/19at 20:49; Admin Dose 75 MG; Start 12/27/18 at 09:00 Acetaminophen (Tylenol Tab) 650 mg Q6H PRN PO MILD PAIN(1-3)OR ELEVATED TEMP Last administered on 12/31/18at 21:17; Admin Dose 650 MG; Start 12/27/18 at 09:00 Atorvastatin Calcium (Lipitor) 20 mg QHS PO Last administered on 01/01/19at 20:48; Admin Dose 20 MG; Start 12/27/18 at 21:00 Clonidine HCl (Catapres-Tts 3 Patch) 0.3 patch Q7D TRANSDERM Last administered on 12/27/18 20:30; Admin Dose 0.3 PATCH; Start 12/27/18 at 11:00 Doxazosin Mesylate (Cardura) 6 mg HS PO Last administered on 12/31/18 21:52; Admin Dose 6 MG; Start 12/27/18 at 21:00 Levothyroxine Sodium (Synthroid) 75 mcg BEFORE BREAKFAST PO Last administered on 01/02/19 06:39; Admin Dose 75 MCG; Start 12/27/18 at 09:30 Losartan Potassium (Cozaar) 50 mg BID PO Last administered on 01/01/19 20:49; Admin Dose 50 MG; Start 12/27/18 at 09:30 Nifedipine (Procardia Xl) 60 mg QAM PO Last administered on 01/01/19 08:17; Admin Dose 60 MG; Start 12/27/18 at 09:30 Pantoprazole (Protonix Tab) 40 mg DAILY@0600 PO Last administered on 01/02/19 06:39; Admin Dose 40 MG; Start 12/27/18 at 09:30 Sertraline HCl (Zoloft) 50 mg DAILY PO Last administered on 01/02/19 08:37; Admin Dose 50 MG; Start 12/27/18 at 09:30 Epoetin Vince (Epogen (Esrd)) 10,000 units MoWeFr@17 SC Last administered on 12/20 17:29; Admin Dose 10,000 UNITS; Start 12/27/18 at 17:00 Multivit/Ca Carb/ B Cmplx/FA/Prenat (Praveena-Bonifacio) 1 tab DAILY PO Last administered on 01/02/19 08:37; Admin Dose 1 TAB; Start 12/27/18 at 09:30 Diagnostic Test (Pha) (Accu-Chek) 1 ea 02 XX Last administered on 12/31/18 01:50; Admin Dose 1 EA; Start 12/28/18 at 02:00 Linagliptin (Tradjenta) 5 mg DAILY PO Last administered on 12/31/18 07:54; Admin Dose 5 MG; Start 12/27/18 at 09:30 Miscellaneous Information 1 ea NOTE XX ; Start 12/27/18 at 10:00 Glucose (Glutose) 15 gm Q15M PRN PO DECREASED GLUCOSE; Start 12/27/18 at 10:00 Glucose (Glutose) 22.5 gm Q15M PRN PO DECREASED GLUCOSE; Start 12/27/18 at 10:00 Dextrose (D50w Syringe) 25 ml Q15M PRN IV DECREASED GLUCOSE; Start 12/27/18 at 10:00 Dextrose (D50w Syringe) 50 ml Q15M PRN IV DECREASED GLUCOSE; Start 12/27/18 at 10:00 Glucagon (Glucagen) 1 mg Q15M PRN IM DECREASED GLUCOSE; Start 12/27/18 at 10:00 Glucose (Glutose) 15 gm Q15M PRN BUCCAL DECREASED GLUCOSE Last administered on 12/28/18 08:24; Admin Dose 15 GM; Start 12/27/18 at 10:00 Insulin Aspart (Novolog Insulin Pen) (Adult SC Insulin - Mild Algorithm)... AC MEALS SC Last administered on 01/02/19 11:45; Admin Dose 2 UNIT; Start 12/27/18 at 11:20 Insulin Detemir (Levemir) 6 units HS SC Last administered on 01/01/19at 21:16; Admin Dose 6 UNITS; Start 12/31/18 at 21:00 Amoxicillin/ Clavulanate Potassium (Augmentin) 500 mg DAILY PO Last administered on 01/02/19 08:37; Admin Dose 500 MG; Start 01/01/19 at 09:00 Nifedipine (Procardia Xl) 30 mg QPM PO Last administered on 01/01/19 20:49; Admin Dose 30 MG; Start 01/01/19 at 21:00 SINDI HERRON 14, 2019 16:22
[2019-01-02] MEDS: NIFEdipine (XL) 30 MG TAB PO SCH (20:32)
[2019-01-02] MEDS: ATORVASTATIN 20 MG TAB PO SCH (20:32)
[2019-01-02] MEDS: INSULIN DETEMIR [LEVEMIR] (100 UNITS/ML) SYG SC SCH (20:40)
[2019-01-02] MEDS: DOXAZOSIN 2 MG TAB PO SCH (22:49)
[2019-01-03] VITALS (8 sets, daily range): BP systolic 118–145; BP diastolic 56–64; PULSE 60–80; RESP 15–20
[2019-01-03] MEDS: ACCU-CHEK XX SCH (02:00)
[2019-01-03] MEDS: LEVOTHYROXINE 75 MCG TAB PO SCH (06:06)
[2019-01-03] MEDS: PANTOPRAZOLE (EC) 40 MG TAB PO SCH (06:06)
--- NOTE | 2019-01-03 07:20 | CONS ---
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 labs are pending 12/30- h.flu in sputum, d/c ceftriaxone and will continue with azithro alone thru 01/04 01/01 - cough returned but good O2 sats change azithro to augmentin and continue thru 01/05 01/02 - although WBC is higher, symptomatically she is better and no other signs of new infection continue with augmentin thru 01/05 repeat CBC in a.m. 01/03 - WBC is back to WNL continue augmentin thru 01/05 I will sign off on case, thank you 2) DM 3) ESRD 4) HTN 5) chest wall wound infection no further drainage and no sign of redness at prior site Consultation Date/Type/Reason Admit Date/Time Dec 26, 2018 at 19:46 Initial Consult Date 12/27/18 Type of Consult ID Requesting Provider: IGNACIO WILLIS MD Date/Time of Note DATE: 01/03/19 TIME: :19 24 HR Interval Summary Free Text/Dictation no GARVEY this a.m. no N, V, D slight cough only Exam/Review of Systems Exam Vitals Vital Signs Date Temp Pulse Resp B/P (MAP) Pulse Ox O2 O2 Flow FiO2 Time Delivery Rate 01/03/19 65 04:00 01/03/19 97.9 20 118/56 97 03:47 (76) 01/02/19 Nasal 2.0 20:00 Cannula 12/31/18 27 21:05 Intake and Output 01/02/19 01/02/19 01/03/19 1515:00 23:00 07:00 IntakeIntake Total 600 ml 200 ml OutputOutput Total 200 ml 2400 ml BalanceBalance -200 ml -1800 ml 200 ml Constitutional: alert ENMT: mucosa pink and moist Respiratory: clear to auscultation Cardiovascular: regular rate and rhythm Gastrointestinal: soft, non-tender Results Result Diagram: 01/03/19 0559 01/02/19 0637 Results 24hrs Laboratory Tests Test 01/02/19 07:30 01/02/19 07:48 01/02/19 11:29 01/02/19 17:32 Bedside Glucose 53 L 89 210 237 H Test 01/02/19 20:29 01/03/19 02:17 01/03/19 05:59 Bedside Glucose 331 H 193 White Blood Count 10.5 # Red Blood Count 2.83 L Hemoglobin 9.0 L Hematocrit 27.7 L Mean Corpuscular 97.9 Volume Mean Corpuscular 31.8 Hemoglobin Mean Corpuscular 32.5 Hemoglobin Concent Red Cell 13.9 Distribution Width Platelet Count 253 Mean Platelet Volume 8.5 Immature 2.800 H Granulocytes % Neutrophils % 79.5 H Lymphocytes % 6.2 L Monocytes % 8.2 Eosinophils % 2.7 Basophils % 0.6 Nucleated Red Blood 0.0 Cells % Immature 0.290 H Granulocytes # Neutrophils # 8.4 H Lymphocytes # 0.7 L Monocytes # 0.9 Eosinophils # 0.3 Basophils # 0.1 Nucleated Red Blood 0.0 Cells # Medications Medication Current Medications Albumin Human 50 ml @ 100 mls/hr WITH DIALYSIS PRN IV SBP < 90 DURING DIALYSIS Last administered on 12/29/18 11:06; Admin Dose 100 MLS/HR; Start 12/26/18 at 23:00 Hydralazine HCl (Apresoline) 75 mg TID PO Last administered on 01/02/19 20:31; Admin Dose 75 MG; Start 12/27/18 at 09:00 Acetaminophen (Tylenol Tab) 650 mg Q6H PRN PO MILD PAIN(1-3)OR ELEVATED TEMP Last administered on 12/31/18 21:17; Admin Dose 650 MG; Start 12/27/18 at 09:00 Atorvastatin Calcium (Lipitor) 20 mg QHS PO Last administered on 01/02/19 20:32; Admin Dose 20 MG; Start 12/27/18 at 21:00 Clonidine HCl (Catapres-Tts 3 Patch) 0.3 patch Q7D TRANSDERM Last administered on 12/27/18 20:30; Admin Dose 0.3 PATCH; Start 12/27/18 at 11:00 Doxazosin Mesylate (Cardura) 6 mg HS PO Last administered on 01/02/19 22:49; Admin Dose 6 MG; Start 12/27/18 at 21:00 Levothyroxine Sodium (Synthroid) 75 mcg BEFORE BREAKFAST PO Last administered on 01/03/19 06:06; Admin Dose 75 MCG; Start 12/27/18 at 09:30 Losartan Potassium (Cozaar) 50 mg BID PO Last administered on 01/02/19 20:32; Admin Dose 50 MG; Start 12/27/18 at 09:30 Nifedipine (Procardia Xl) 60 mg QAM PO Last administered on 01/01/19 08:17; Admin Dose 60 MG; Start 12/27/18 at 09:30 Pantoprazole (Protonix Tab) 40 mg DAILY@0600 PO Last administered on 01/03/19 06:06; Admin Dose 40 MG; Start 12/27/18 at 09:30 Sertraline HCl (Zoloft) 50 mg DAILY PO Last administered on 01/02/19 08:37; Admin Dose 50 MG; Start 12/27/18 at 09:30 Epoetin Vince (Epogen (Esrd)) 10,000 units MoWeFr@17 SC Last administered on 17:29; Admin Dose 10,000 UNITS; Start 12/27/18 at 17:00 Multivit/Ca Carb/ B Cmplx/FA/Prenat (Praveena-Bonifacio) 1 tab DAILY PO Last administered on 01/02/19 08:37; Admin Dose 1 TAB; Start 12/27/18 at 09:30 Diagnostic Test (Pha) (Accu-Chek) 1 ea 02 XX Last administered on 12/31/18 01:50; Admin Dose 1 EA; Start 12/28/18 at 02:00 Linagliptin (Tradjenta) 5 mg DAILY PO Last administered on 12/31/18 07:54; Admin Dose 5 MG; Start 12/27/18 at 09:30 Miscellaneous Information 1 ea NOTE XX ; Start 12/27/18 at 10:00 Glucose (Glutose) 15 gm Q15M PRN PO DECREASED GLUCOSE; Start 12/27/18 at 10:00 Glucose (Glutose) 22.5 gm Q15M PRN PO DECREASED GLUCOSE; Start 12/27/18 at 10:00 Dextrose (D50w Syringe) 25 ml Q15M PRN IV DECREASED GLUCOSE; Start 12/27/18 at 10:00 Dextrose (D50w Syringe) 50 ml Q15M PRN IV DECREASED GLUCOSE; Start 12/27/18 at 10:00 Glucagon (Glucagen) 1 mg Q15M PRN IM DECREASED GLUCOSE; Start 12/27/18 at 10:00 Glucose (Glutose) 15 gm Q15M PRN BUCCAL DECREASED GLUCOSE Last administered on 12/28/18 08:24; Admin Dose 15 GM; Start 12/27/18 at 10:00 Insulin Aspart (Novolog Insulin Pen) (Adult SC Insulin - Mild Algorithm)... AC MEALS SC Last administered on 01/02/19 17:48; Admin Dose 3 UNIT; Start 12/27/18 at 11:20 Insulin Detemir (Levemir) 6 units HS SC Last administered on 01/02/19 20:40; Admin Dose 6 UNITS; Start 12/31/18 at 21:00 Amoxicillin/ Clavulanate Potassium (Augmentin) 500 mg DAILY PO Last administered on 01/02/19 08:37; Admin Dose 500 MG; Start 01/01/19 at 09:00 Nifedipine (Procardia Xl) 30 mg QPM PO Last administered on 01/02/19 20:32; Admin Dose 30 MG; Start 01/01/19 at 21:00 PAUL MARTINEZ MD Jan 03, 2019 07:20
[2019-01-03] MEDS: Insulin NOVOLOG SS MILD Algorithm (NPO/TPN/ENTERAL FEEDS) SC SCH ×2 (07:22→11:32)
[2019-01-03] MEDS: LINAGLIPTIN 5 MG TABLET PO SCH (08:32)
[2019-01-03] MEDS: SERTRALINE 50 MG TAB PO SCH (08:33)
[2019-01-03] MEDS: LOSARTAN 50 MG TAB PO SCH (08:33)
[2019-01-03] MEDS: NIFEdipine (XL) 60 MG TAB PO SCH (08:33)
[2019-01-03] MEDS: MULTIVIT/CA CARB/B CMPLX/FA TAB PO SCH (08:33)
[2019-01-03] MEDS: AMOXICILLIN/CLAV 500 MG TAB PO SCH (08:34)
--- NOTE | 2019-01-03 11:18 | CONS ---
Assessment/Plan Assessment/Plan Problems: (1) ESRD on dialysis Comment: rachael well... for Rx tomorrow...here. or if d/c, then at [facility] (2) CHF (congestive heart failure) Status: Acute Comment: improved.. stable (3) Acute respiratory failure with hypoxia Status: Acute Comment: resolved.. d/c per Dr Alcazar Consultation Date/Type/Reason Admit Date/Time Dec 26, 2018 at 19:46 Type of Consult Nephrology Date/Time of Note DATE: 01/03/19 TIME: 11:16 Hx of Present Illness feels OK... no cp or sob Exam/Review of Systems Vital Signs Vitals Vital Signs Date Temp Pulse Resp B/P (MAP) Pulse Ox O2 O2 Flow FiO2 Time Delivery Rate 01/03/19 60 08:25 01/03/19 Nasal 2.0 07:35 Cannula 01/03/19 98.6 16 126/57 98 07:32 (80) 12/31/18 27 21:05 Intake and Output 01/02/19 01/02/19 01/03/19 1515:00 23:00 07:00 IntakeIntake Total 600 ml 200 ml OutputOutput Total 200 ml 2400 ml BalanceBalance -200 ml -1800 ml 200 ml Exam Constitutional: alert Psych: no complaints Neck: supple Respiratory: clear to auscultation Cardiovascular: regular rate and rhythm, murmurs/extra sounds (2/6) Gastrointestinal: soft, nl liver, spleen Labs Result Diagram: 01/03/19 0559 01/02/19 0637 Results 24hrs Laboratory Tests Test 01/02/19 11:29 01/02/19 17:32 01/02/19 20:29 01/03/19 02:17 Bedside Glucose 210 237 H 331 H 193 Test 01/03/19 05:59 01/03/19 07:15 White Blood Count 10.5 # Red Blood Count 2.83 L Hemoglobin 9.0 L Hematocrit 27.7 L Mean Corpuscular 97.9 Volume Mean Corpuscular 31.8 Hemoglobin Mean Corpuscular 32.5 Hemoglobin Concent Red Cell 13.9 Distribution Width Platelet Count 253 Mean Platelet Volume 8.5 Immature 2.800 H Granulocytes % Neutrophils % 79.5 H Lymphocytes % 6.2 L Monocytes % 8.2 Eosinophils % 2.7 Basophils % 0.6 Nucleated Red Blood 0.0 Cells % Immature 0.290 H Granulocytes # Neutrophils # 8.4 H Lymphocytes # 0.7 L Monocytes # 0.9 Eosinophils # 0.3 Basophils # 0.1 Nucleated Red Blood 0.0 Cells # Bedside Glucose 141 Medications Medications Current Medications Albumin Human 50 ml @ 100 mls/hr WITH DIALYSIS PRN IV SBP < 90 DURING DIALYSIS Last administered on 12/29/18 11:06; Admin Dose 100 MLS/HR; Start 12/26/18 at 23:00 Hydralazine HCl (Apresoline) 75 mg TID PO Last administered on 01/03/19 08:32; Admin Dose 75 MG; Start 12/27/18 at 09:00 Acetaminophen (Tylenol Tab) 650 mg Q6H PRN PO MILD PAIN(1-3)OR ELEVATED TEMP Last administered on 12/31/18 21:17; Admin Dose 650 MG; Start 12/27/18 at 09:00 Atorvastatin Calcium (Lipitor) 20 mg QHS PO Last administered on 01/02/19 20:32; Admin Dose 20 MG; Start 12/27/18 at 21:00 Clonidine HCl (Catapres-Tts 3 Patch) 0.3 patch Q7D TRANSDERM Last administered on 12/27/18 20:30; Admin Dose 0.3 PATCH; Start 12/27/18 at 11:00 Doxazosin Mesylate (Cardura) 6 mg HS PO Last administered on 01/02/19 22:49; Admin Dose 6 MG; Start 12/27/18 at 21:00 Levothyroxine Sodium (Synthroid) 75 mcg BEFORE BREAKFAST PO Last administered on 01/03/19 06:06; Admin Dose 75 MCG; Start 12/27/18 at 09:30 Losartan Potassium (Cozaar) 50 mg BID PO Last administered on 01/03/19 08:33; Admin Dose 50 MG; Start 12/27/18 at 09:30 Nifedipine (Procardia Xl) 60 mg QAM PO Last administered on 01/03/19 08:33; Admin Dose 60 MG; Start 12/27/18 at 09:30 Pantoprazole (Protonix Tab) 40 mg DAILY@0600 PO Last administered on 01/03/19 06:06; Admin Dose 40 MG; Start 12/27/18 at 09:30 Sertraline HCl (Zoloft) 50 mg DAILY PO Last administered on 01/03/19 08:33; Admin Dose 50 MG; Start 12/27/18 at 09:30 Epoetin Vince (Epogen (Esrd)) 10,000 units MoWeFr@17 SC Last administered on 01/01/19 17:29; Admin Dose 10,000 UNITS; Start 12/27/18 at 17:00 Multivit/Ca Carb/ B Cmplx/FA/Prenat (Praveena-Bonifacio) 1 tab DAILY PO Last administered on 01/03/19 08:33; Admin Dose 1 TAB; Start 12/27/18 at 09:30 Diagnostic Test (Pha) (Accu-Chek) 1 ea 02 XX Last administered on 12/31/18 01:50; Admin Dose 1 EA; Start 12/28/18 at 02:00 Linagliptin (Tradjenta) 5 mg DAILY PO Last administered on 01/03/19 08:32; Admin Dose 5 MG; Start 12/27/18 at 09:30 Miscellaneous Information 1 ea NOTE XX ; Start 12/27/18 at 10:00 Glucose (Glutose) 15 gm Q15M PRN PO DECREASED GLUCOSE; Start 12/27/18 at 10:00 Glucose (Glutose) 22.5 gm Q15M PRN PO DECREASED GLUCOSE; Start 12/27/18 at 10:00 Dextrose (D50w Syringe) 25 ml Q15M PRN IV DECREASED GLUCOSE; Start 12/27/18 at 10:00 Dextrose (D50w Syringe) 50 ml Q15M PRN IV DECREASED GLUCOSE; Start 12/27/18 at 10:00 Glucagon (Glucagen) 1 mg Q15M PRN IM DECREASED GLUCOSE; Start 12/27/18 at 10:00 Glucose (Glutose) 15 gm Q15M PRN BUCCAL DECREASED GLUCOSE Last administered on 12/28/18 08:24; Admin Dose 15 GM; Start 12/27/18 at 10:00 Insulin Aspart (Novolog Insulin Pen) (Adult SC Insulin - Mild Algorithm)... AC MEALS SC Last administered on 01/03/19 07:22; Admin Dose 1 UNIT; Start 12/27/18 at 11:20 Insulin Detemir (Levemir) 6 units HS SC Last administered on 3/14/19at 20:40; Admin Dose 6 UNITS; Start 12/31/18 at 21:00 Amoxicillin/ Clavulanate Potassium (Augmentin) 500 mg DAILY PO Last administered on 01/03/19at 08:34; Admin Dose 500 MG; Start 01/01/19 at 09:00 Nifedipine (Procardia Xl) 30 mg QPM PO Last administered on 01/02/19at 20:32; Admin Dose 30 MG; Start 01/01/19 at 21:00 YESSICA MARTÍNEZ MD Jan 03, 2019 11:18
[2019-01-03] MEDS: CLONIDINE 0.3 MG/24 HR PATCH TRANSDERM SCH (11:50)
--- NOTE | 2019-01-03 13:24 | PN ---
Date/Time of Note Date/Time of Note DATE: 01/03/19 TIME: 13:21 Assessment/Plan VTE Prophylaxis Risk score (from Ns)>0 risk: 5 SCD applied (from Ns): Yes Pharmacological prophylaxis: NA/contraindicated Pharm contraindication: renal impairment Lines/Catheters IV [facility]from [facility] [place] [facility] Urinary Cath still in place: No Assessment/Plan Assessment/Plan A: acute exacerbation of diastolic chf pleural effusion pneumonia esrd DM HTN P: d/c home dialysis tomorrow cont augmentin thru 01/05 f/u with ID in 1wk, with me in 1wk, cardiology in 2wks, renal in dialysis Result Diagram: 01/03/19 0559 01/02/19 0637 Results 24hrs Laboratory Tests Test 01/02/19 17:32 01/02/19 20:29 01/03/19 02:17 01/03/19 05:59 Bedside Glucose 237 H 331 H 193 White Blood Count 10.5 # Red Blood Count 2.83 L Hemoglobin 9.0 L Hematocrit 27.7 L Mean Corpuscular 97.9 Volume Mean Corpuscular 31.8 Hemoglobin Mean Corpuscular 32.5 Hemoglobin Concent Red Cell 13.9 Distribution Width Platelet Count 253 Mean Platelet Volume 8.5 Immature 2.800 H Granulocytes % Neutrophils % 79.5 H Lymphocytes % 6.2 L Monocytes % 8.2 Eosinophils % 2.7 Basophils % 0.6 Nucleated Red Blood 0.0 Cells % Immature 0.290 H Granulocytes # Neutrophils # 8.4 H Lymphocytes # 0.7 L Monocytes # 0.9 Eosinophils # 0.3 Basophils # 0.1 Nucleated Red Blood 0.0 Cells # Test 01/03/19 07:15 01/03/19 11:27 Bedside Glucose 141 319 H Subjective 24 Hr Interval Summary Free Text/Dictation Pt feeling better, feels ready to go home. No sob, cough. Exam/Review of Systems Exam Vitals Vital Signs Date Temp Pulse Resp B/P (MAP) Pulse Ox O2 O2 Flow FiO2 Time Delivery Rate 01/03/19 64 12:26 01/03/19 98.2 15 141/64 99 Nasal 11:44 (89) Cannula 01/03/19 2.0 07:35 12/31/18 27 21:05 Intake and Output 01/02/19 01/02/19 01/03/19 1515:00 23:00 07:00 IntakeIntake Total 600 ml 200 ml OutputOutput Total 200 ml 2400 ml BalanceBalance -200 ml -1800 ml 200 ml Exam gen- nad, nontoxic lungs- CTA heart- RRR abd- +BS. soft, nontender ext- no edema Results Results 24hrs Laboratory Tests Test 01/02/19 17:32 01/02/19 20:29 01/03/19 02:17 01/03/19 05:59 Bedside Glucose 237 H 331 H 193 White Blood Count 10.5 # Red Blood Count 2.83 L Hemoglobin 9.0 L Hematocrit 27.7 L Mean Corpuscular 97.9 Volume Mean Corpuscular 31.8 Hemoglobin Mean Corpuscular 32.5 Hemoglobin Concent Red Cell 13.9 Distribution Width Platelet Count 253 Mean Platelet Volume 8.5 Immature 2.800 H Granulocytes % Neutrophils % 79.5 H Lymphocytes % 6.2 L Monocytes % 8.2 Eosinophils % 2.7 Basophils % 0.6 Nucleated Red Blood 0.0 Cells % Immature 0.290 H Granulocytes # Neutrophils # 8.4 H Lymphocytes # 0.7 L Monocytes # 0.9 Eosinophils # 0.3 Basophils # 0.1 Nucleated Red Blood 0.0 Cells # Test 01/03/19 07:15 01/03/19 11:27 Bedside Glucose 141 319 H Medications Medication Current Medications Albumin Human 50 ml @ 100 mls/hr WITH DIALYSIS PRN IV SBP < 90 DURING DIALYSIS Last administered on 12/29/18at 11:06; Admin Dose 100 MLS/HR; Start 12/26/18 at 23:00 Hydralazine HCl (Apresoline) 75 mg TID PO Last administered on 01/03/19at 08:32; Admin Dose 75 MG; Start 12/27/18 at 09:00 Acetaminophen (Tylenol Tab) 650 mg Q6H PRN PO MILD PAIN(1-3)OR ELEVATED TEMP Last administered on 12/31/18at 21:17; Admin Dose 650 MG; Start 12/27/18 at 09:00 Atorvastatin Calcium (Lipitor) 20 mg QHS PO Last administered on 01/02/19at 20:32; Admin Dose 20 MG; Start 12/27/18 at 21:00 Clonidine HCl (Catapres-Tts 3 Patch) 0.3 patch Q7D TRANSDERM Last administered on 01/03/19 11:50; Admin Dose 0.3 PATCH; Start 12/27/18 at 11:00 Doxazosin Mesylate (Cardura) 6 mg HS PO Last administered on 01/02/19 22:49; Admin Dose 6 MG; Start 12/27/18 at 21:00 Levothyroxine Sodium (Synthroid) 75 mcg BEFORE BREAKFAST PO Last administered on 01/03/19 06:06; Admin Dose 75 MCG; Start 12/27/18 at 09:30 Losartan Potassium (Cozaar) 50 mg BID PO Last administered on 01/03/19 08:33; Admin Dose 50 MG; Start 12/27/18 at 09:30 Nifedipine (Procardia Xl) 60 mg QAM PO Last administered on 01/03/19 08:33; Admin Dose 60 MG; Start 12/27/18 at 09:30 Pantoprazole (Protonix Tab) 40 mg DAILY@0600 PO Last administered on 01/03/19 06:06; Admin Dose 40 MG; Start 12/27/18 at 09:30 Sertraline HCl (Zoloft) 50 mg DAILY PO Last administered on 01/03/19 08:33; Admin Dose 50 MG; Start 12/27/18 at 09:30 Epoetin Vince (Epogen (Esrd)) 10,000 units MoWeFr@17 SC Last administered on 01/01/19 17:29; Admin Dose 10,000 UNITS; Start 12/27/18 at 17:00 Multivit/Ca Carb/ B Cmplx/FA/Prenat (Praveena-Bonifacio) 1 tab DAILY PO Last administered on 01/03/19 08:33; Admin Dose 1 TAB; Start 12/27/18 at 09:30 Diagnostic Test (Pha) (Accu-Chek) 1 ea 02 XX Last administered on 12/31/18 01:50; Admin Dose 1 EA; Start 12/28/18 at 02:00 Linagliptin (Tradjenta) 5 mg DAILY PO Last administered on 01/03/19 08:32; Admin Dose 5 MG; Start 12/27/18 at 09:30 Miscellaneous Information 1 ea NOTE XX ; Start 12/27/18 at 10:00 Glucose (Glutose) 15 gm Q15M PRN PO DECREASED GLUCOSE; Start 12/27/18 at 10:00 Glucose (Glutose) 22.5 gm Q15M PRN PO DECREASED GLUCOSE; Start 12/27/18 at 10:00 Dextrose (D50w Syringe) 25 ml Q15M PRN IV DECREASED GLUCOSE; Start 12/27/18 at 10:00 Dextrose (D50w Syringe) 50 ml Q15M PRN IV DECREASED GLUCOSE; Start 12/27/18 at 10:00 Glucagon (Glucagen) 1 mg Q15M PRN IM DECREASED GLUCOSE; Start 12/27/18 at 10:00 Glucose (Glutose) 15 gm Q15M PRN BUCCAL DECREASED GLUCOSE Last administered on 12/28/18 08:24; Admin Dose 15 GM; Start 12/27/18 at 10:00 Insulin Aspart (Novolog Insulin Pen) (Adult SC Insulin - Mild Algorithm)... AC MEALS SC Last administered on 01/03/19 11:32; Admin Dose 5 UNIT; Start 12/27/18 at 11:20 Insulin Detemir (Levemir) 6 units HS SC Last administered on 01/02/19 20:40; Admin Dose 6 UNITS; Start 12/31/18 at 21:00 Amoxicillin/ Clavulanate Potassium (Augmentin) 500 mg DAILY PO Last administered on 01/03/19 08:34; Admin Dose 500 MG; Start 01/01/19 at 09:00 Nifedipine (Procardia Xl) 30 mg QPM PO Last administered on 01/02/19 20:32; Admin Dose 30 MG; Start 01/01/19 at 21:00 IGNACIO WILLIS MD Jan 03, 2019 13:24
--- NOTE | 2019-01-03 13:25 | PDOCDIS ---
Discharge Instructions CONDITION [id number] Patient Condition: Inoxp0r Fair FOLLOW UP/APPOINTMENTS Follow-up Plan f/u with Dr. Mendosa in 1wk, Dr. Willis in 1wk, Dr. Acñua in 2wks, Dr. Garland at dialysis IGNACIO WILLIS MD Jan 03, 2019 13:25
[2019-01-03] MEDS ORDERED: AMOX1TAB9 PO (13:30)
--- NOTE | 2019-01-03 19:17 | DS ---
DATE OF ADMISSION: 12/26/2018 DATE OF DISCHARGE: 01/03/2019 DISCHARGE DIAGNOSES: 1. Acute exacerbation of diastolic congestive heart failure. 2. Pleural effusion. 3. Pneumonia. Sputum positive for Haemophilus influenza. 4. End-stage renal disease. 5. Diabetes. 6. Hypertension. PROCEDURES: Ultrasound-guided thoracentesis, 2D echocardiogram, nuclear cardiac stress test. CONSULTANTS: Renal, Bry Garland MD; ID, Hermilo Mendosa MD; pulmonary, João Corbett MD; cardiology , Hernán Acuña MD HISTORY OF PRESENT ILLNESS: The patient is a 73-year-old female with history of congestive hea rt failure, end-stage renal disease, diabetes ____ cough initially nonproductive with some mild dyspn ea on exertion. The patient was felt to be fluid overloaded which was attempted to be addressed duri ng dialysis. In the last few days prior to admission, the patient had an increasing cough despite th e dialysis measures and increasing shortness of breath. Cough has become productive. The patient de nies any fever, chills or night sweats. She does have chronic chest pain from postherpetic neuralgia in the right upper chest. The patient presented to the ER and was found to be hypoxic with a pulse ox in the 80s. The patient responded well to BiPAP. X-ray showed a right [facility] eff[facility] PHYSICAL EXAMINATION: VITAL SIGNS: On admission, temperature 99.1, pulse 71, blood pressure 133/63, pulse ox 95% on 2 lite rs. GENERAL APPEARANCE: The patient was mildly ill appearing, but in no acute distress. LUNGS: Decreased breath sounds in the right base; otherwise clear. CARDIAC: Regular rate and rhythm. EXTREMITIES: Without cyanosis, clubbing or edema. NEUROLOGIC: The patient was a bit lethargic but answers questions appropriately. She is hard of hea ring, but no other focal neurologic findings. LABORATORY DATA: On admission notable for white count of 12.6, hemoglobin 9.9, platelets 156. Sodiu m 140, potassium 4.2, BUN was 19, creatinine 3.44, glucose 107. Troponin 0.045. DIAGNOSTIC DATA: Chest x-ray showed cardiomegaly, increased pulmonary vascularity, increased interst itial markings, bilateral airspace infiltrates and large right pleural effusion. HOSPITAL COURSE: 1. Acute exacerbation of diastolic congestive heart failure. Fluid issues were addressed through di alysis. The patient also underwent thoracentesis. The patient will continue her dialysis during hos pitalization with clinical and symptomatic improvement. 2. Right pleural effusion. The patient is with large right pleural effusion and underwent ultrasoun d-guided thoracentesis with symptomatic and clinical improvement and still some small residual pleura l effusion which was stable at time of discharge. 3. Pneumonia. The patient with bilateral interstitial airspace disease. The patient was seen in in fectious disease consultation, treated with appropriate antibiotics, ultimately discharged on Augment in, which will complete as an outpatient. 4. End-stage renal disease. The patient is dialysis dependent which was continued her hospitalizati on with also ____ improve patient's fluid status. The patient responded well and is symptomatically and clinically improved. 5. Diabetes. The patient was continued on her outpatient diabetes meds. Blood sugars continued ottoniel ewhat labile but she will be continued on her normal outpatient regimen at time of discharge. 6. Hypertension. The patient with labile hypertension which has been difficult to control. Medicat ion adjustment per renal and cardiology, but ultimately responded well with her outpatient regimen wh ich she will continue as an outpatient. DISPOSITION: Discharge the patient home. Arrange outpatient dialysis for tomorrow. DISCHARGE CONDITION: Fair. DISCHARGE MEDICATIONS: 1. Nifedipine 60 mg a.m. and 30 mg q.p.m. 2. Augmentin 500 mg p.o. daily through 01/05/2019. 3. Levemir 6 units subcutaneous daily. 4. Lipitor 20 mg daily. 5. Cardura 6 mg daily. 6. Sliding scale of NovoLog. 7. Clonidine patch 0.3 mg q.7 days. 8. Synthroid 75 mcg daily. 9. Losartan 50 mg b.i.d. 10. Pantoprazole 40 mg daily. 11. Zoloft 50 mg daily. 12. Januvia 25 mg daily. 13. Hydralazine 75 mg t.i.d. FOLLOWUP: The patient is to follow up with ID in 1 week, with myself in 1 week, with cardiology in 2 weeks. The patient is also to arrange followup with endocrinology and will follow up with renal, Dr Charly Garland during dialysis. Dictated By: IGNACIO SIMS/SAMIA Conf#: [id number] DID#: [id number] CC: JOÃO CORBETT MD;*End*
== END 2019-01-03 16:00 | disposition home or self-care (01) | DRG 291 ==
LOC: E/R 17:37 → TEL 19:46
PROVIDERS: ADMIT Internal Medicine; ATTEND Internal Medicine
PROC: 5A1D70Z Performance of Urinary Filtration, Intermittent, Less than 6 Hours Per Day (ICD-10-PCS; 2018-12-26)
PROC: 5A09357 Assistance with Respiratory Ventilation, Less than 24 Consecutive Hours, Continuous Positive Airway Pressure (ICD-10-PCS; 2018-12-26)
PROC: 0W993ZX Drainage of Right Pleural Cavity, Percutaneous Approach, Diagnostic (ICD-10-PCS; principal; 2018-12-27)
DX: I13.2 Hypertensive heart and chronic kidney disease with heart failure and with stage 5 chronic kidney disease, or end stage renal disease (principal); N18.6 End stage renal disease; I50.33 Acute on chronic diastolic (congestive) heart failure; J96.01 Acute respiratory failure with hypoxia; J14 Pneumonia due to Hemophilus influenzae; J90 Pleural effusion, not elsewhere classified; B02.29 Other postherpetic nervous system involvement; E11.22 Type 2 diabetes mellitus with diabetic chronic kidney disease; Z99.2 Dependence on renal dialysis; E78.5 Hyperlipidemia, unspecified; E03.9 Hypothyroidism, unspecified; D63.1 Anemia in chronic kidney disease; K21.9 Gastro-esophageal reflux disease without esophagitis; I25.10 Atherosclerotic heart disease of native coronary artery without angina pectoris
CPT/HCPCS: 36415; 36600; 71045; 76942; 78452; 80048; 80053; 82607; 82728; 82803; 82962; 83540; 83735; 84100; 84145; 84443; 84484; 85025; 85610; 85651; 85730; 86140; 87040; 87070; 87081; 87340; 87400; 88104; 88302; 88305; 88341; 88342; 90935; 93005; 93017; 93306; 94660; 97116; 97161; 97530; A9500; A9505; J0696; J1815; J2785; J2916; Q4081

== ENCOUNTER 2019-04-19 18:13 | Emergency (ER) | payer BC ==
[~2019-04-19] VITALS: Ht 154.9 cm; Wt 59.1 kg
[~2019-04-19 18:13] MED LIST changes: +AMOX1TAB9 PO; -CLON1PAT2 TRANSDERM; +CLON1PAT3 TD; +DOXA2TAB PO; -DOXA2TAB61 PO; -HYDR-3671 PO; +HYDR-3672 PO; +INSU100C SQ; -INSU100I12 SQ; +LOSA50TA14 PO; -LOSA50TA2 PO; -NIFE30TA2 PO; +NIFE30TA23 PO; +NIFE60TA18 PO; -NIFE60TA2 PO
[2019-04-19 18:19] VITALS: Ht 154.9 cm; Wt 59.1 kg
[2019-04-19] MEDS ORDERED: TRANEXAMIC ACID 1GM/100ML(PMX) 100 ML IV STA (19:02)
[2019-04-19] MEDS ORDERED: DESMOPRESSIN 20 MCG in SOD CHLORIDE 0.9% 50 ML IVPB ONE (19:30)
--- NOTE | 2019-04-19 20:39 | ERD ---
ER Documentation Chief Complaint Chief Complaint L upper arm bleed to fistula. Pt hard of hearing HPI 73-year-old female with a history of ESRD on hemodialysis presenting with bleeding from her left upper extremity AV fistula site. She had dialysis today. They had trouble controlling the bleeding there. They advised the patient to come to the ER. Patient is denying any associated pain or numbness in the arm. Per her at bedside, there is some type of problem with the fistula which is being managed by her vascular surgeon. ROS All systems reviewed and are negative except as per history of present illness. Medications Home Meds Active Scripts Amoxicillin/Potassium Clav (Amox-Clav 500-125 mg Tablet) 500-125 mg Tab, 500 MG PO DAILY for 3 Days, #3 TAB Prov:IGNACIO WILLIS MD 01/03/19 Reported Medications Insulin Lispro (Humalog) 100 Unit/1 Ml Cartridge, 0 SQ SLIDING SCALE, EA 12/26/18 Insulin Detemir (Levemir Flextouch) 100 Unit/1 Ml Insuln.pen, 6 UNIT SQ DAILY, EA 12/26/18 Atorvastatin Calcium* (Atorvastatin Calcium*) 20 Mg Tablet, 20 MG PO QHS, #30 TAB 12/26/18 Doxazosin Mesylate* (Doxazosin Mesylate*) 2 Mg Tablet, 6 MG PO HS, TAB 12/26/18 Hydralazine Hcl* (Hydralazine Hcl*) 50 Mg Tab, 75 MG PO TID, #90 TAB 12/26/18 Losartan Potassium* (Losartan Potassium*) 50 Mg Tablet, 50 MG PO BID, TAB 12/26/18 Sitagliptin* (Januvia*) 25 Mg Tablet, 25 MG PO DAILY, #30 TAB 12/26/18 Sertraline Hcl* (Sertraline Hcl*) 50 Mg Tablet, 50 MG PO DAILY, #30 TAB 12/26/18 Nifedipine* (Nifedipine ER*) 30 Mg Tablet.sa, 30 MG PO QPM, TAB.SA 12/26/18 Nifedipine* (Nifedipine ER*) 60 Mg Tablet.sa, 60 MG PO QAM, TAB.SA 12/26/18 Pantoprazole* (Pantoprazole*) 40 Mg Tablet.dr, 40 MG PO DAILY, TAB 12/26/18 Levothyroxine Sodium* (Levothyroxine Sodium*) 75 Mcg Tablet, 75 MCG PO BEFORE BREAKFAST, #30 TAB 12/26/18 Clonidine Patch (CLONIDINE PATCH) 0.3 Mg/24 Hr Patch, 1 PATCH.WK TD Q7D, #4 PATCH.WK 12/26/18 Allergies Allergies: Coded Allergies: No Known Allergy (Unverified , 12/26/18) PMhx/Soc History of Surgery: Yes (abdominal ulcer S 2016, left breast) Anesthesia Reaction: No Hx Neurological Disorder: Yes Hx Respiratory Disorders: Yes (SOB with activities) Hx Cardiac Disorders: Yes (CHF) Hx Psychiatric Problems: Yes (Dementia) Hx Miscellaneous Medical Probl: Yes (ESRD, anemia, HTN, CHF, duodenal ulcer with bleeding, GERD, shingles with h) Hx Alcohol Use: No Hx Substance Use: No Hx Tobacco Use: No Smoking Status: Never smoker FmHx Family History: No diabetes Physical Exam Vitals Vital Signs Date Temp Pulse Resp B/P (MAP) Pulse Ox O2 O2 Flow FiO2 Time Delivery Rate 04/19/19 69 18 162/48 100 Room Air 21:40 (86) 04/19/19 98.7 80 18 179/83 98 18:19 (115) Physical Exam Const: No acute distress Head: Atraumatic Eyes: Normal Conjunctiva ENT: Normal External Ears, Nose and Mouth. Neck: Full range of motion. No meningismus. Resp: Clear to auscultation bilaterally Cardio: Regular rate and rhythm, no murmurs. 2+ distal pulses Skin: No petechiae or rashes Back: No midline or flank tenderness Ext: No cyanosis, or edema. Left upper extremity AV fistula site with a small puncture wound is actively bleeding, high-pressure. Palpable thrill. Neur: Awake and alert Psych: Normal Mood and Affect Results 24 hrs Current Medications Medications Dose Sig/Zeb Start Time Status Last (Trade) Ordered Route PRN Stop Time Admin Dose Reason Admin Tranexamic 100 ml @ ONCE STAT 04/19/19 DC 04/19/19 Acid 200 mls/hr IV 19:02 20:39 04/19/19 19:31 55 ml @ ONCE ONCE 04/19/19 DC 04/19/19 Desmopressin 110 mls/hr IVPB 19:30 20:39 Acetate 20 04/19/19 19:59 mcg/ Sodium Chloride Hydralazine 10 mg ONCE ONCE 04/19/19 DC 04/19/19 HCl IV 21:30 21:28 (Apresoline) 04/19/19 21:31 Procedures/MDM Patient presented with left upper extremity AV fistula bleeding. Given her history of kidney disease, she does have abnormal platelet function at baseline. For this reason I recommended IV DDAVP. Surgicel and gauze soaked in TXA was applied to the wound, with pressure dressing applied afterwards. Patient was monitored for at least 1 hour after the pressure dressing was applied without saturation of the dressing. Patient remained hemodynamically stable. I feel she is stable for discharge with continued outpatient follow-up. Advised to not remove the dressing until her next dialysis appointment. Return precautions discussed. Patient discharged in a stable condition. Prior to discharge she was given hydralazine IV for asymptomatic hypertension. However given her bleeding, I felt that reducing her blood pressure reduce the bleeding. Patient's blood pressure was elevated (>120/80) but appears stable without evidence of hypertension emergency or urgency. The patient was counseled about the risks of hypertension and urged to pursue outpatient monitoring and therapy within a week with their primary care physician. Critical Care Time: 45 minutes Treatments/Evaluations: Close monitoring and treatment of unstable vital signs, cardiorespiratory, and neurologic status, while maintaining tight balance of fluid, respiratory, and cardiac interventions. This time includes discussing the case with the patient and the patients family. This time does not include all procedures stated elsewhere in this record. This time also includes reviewing old records, labs and radiological studies. This time includes examining and re- examining the patient. Additionally, this time also includes arranging care with admitting and consulting physicians. Departure Diagnosis: Primary Impression: Hemorrhage of arteriovenous fistula Encounter type: initial encounter Qualified Codes: T82.838A - Hemorrhage due to vascular prosthetic devices, implants and grafts, initial encounter Additional Impression: ESRD on dialysis Condition: Stable TEDDY CALHOUN MD Apr 19, 2019 20:39
[2019-04-19] MEDS ORDERED: hydrALAzine 20 MG INJ IV ONE (21:30)
[2019-04-19 21:40] VITALS: BP 162/48; PULSE 69; RESP 18
== END 2019-04-19 21:43 | disposition home or self-care (01) ==
LOC: E/R 18:13
DX: T82.838A Hemorrhage due to vascular prosthetic devices, implants and grafts, initial encounter (principal); I13.2 Hypertensive heart and chronic kidney disease with heart failure and with stage 5 chronic kidney disease, or end stage renal disease; I50.9 Heart failure, unspecified; N18.6 End stage renal disease; Y71.2 Prosthetic and other implants, materials and accessory cardiovascular devices associated with adverse incidents; Z79.4 Long term (current) use of insulin
CPT/HCPCS: 96374; 96375; 99284; J0360; J2597

== ENCOUNTER 2019-06-09 23:47 | Emergency (ER) | payer BC ==
[~2019-06-09] VITALS: Ht 149.9 cm; Wt 49.2 kg
[2019-06-10] VITALS: Ht 149.9 cm; Wt 49.2 kg
[2019-06-10 02:10] VITALS: BP 188/81; PULSE 91; RESP 18
== END 2019-06-10 04:03 | disposition home or self-care (01) ==
LOC: E/R 23:47
DX: S00.83XA Contusion of other part of head, initial encounter (principal); I13.2 Hypertensive heart and chronic kidney disease with heart failure and with stage 5 chronic kidney disease, or end stage renal disease; I50.9 Heart failure, unspecified; N18.6 End stage renal disease; E11.22 Type 2 diabetes mellitus with diabetic chronic kidney disease; W01.10XA Fall on same level from slipping, tripping and stumbling with subsequent striking against unspecified object, initial encounter; Y92.9 Unspecified place or not applicable; Z99.2 Dependence on renal dialysis; Z79.4 Long term (current) use of insulin
CPT/HCPCS: 70450

== ENCOUNTER 2019-06-27 07:49 | Day surgery (SDC) | payer BC ==
[2019-06-27] VITALS (13 sets, daily range): BP systolic 126–194; BP diastolic 46–79; PULSE 62–68; RESP 16–27; Ht 149.9 cm; Wt 46.8 kg
[~2019-06-27] VITALS: Ht 149.9 cm; Wt 46.8 kg
[2019-06-27] MEDS ORDERED: LABETALOL HCL 20MG INJ IV PRN (09:30)
[2019-06-27] MEDS ORDERED: ONDANSETRON 4 MG INJ IV PRN (09:30)
[2019-06-27] MEDS ORDERED: METOCLOPRAMIDE 10 MG INJ IV PRN (09:30)
[2019-06-27] MEDS ORDERED: FENTAnyl 50 MCG/ML VIAL IV PRN (09:30)
[2019-06-27] MEDS ORDERED: hydrALAzine 20 MG INJ IV PRN (09:30)
[2019-06-27] MEDS ORDERED: ALBUTEROL 0.083% (NEB) 2.5 MG/3 ML AMP HHN PRN (09:30)
[2019-06-27] MEDS ORDERED: DIPHENHYDRAMINE 50 MG INJ IV PRN (09:30)
[2019-06-27] MEDS ORDERED: CEFAZOLIN 1 GM INJ ONE (09:51)
[2019-06-27] MEDS ORDERED: GLYCOPYRROLATE 0.4 MG INJ ONE (09:51)
[2019-06-27] MEDS ORDERED: SUCCINYLCHOLINE CHLORIDE 100 MG/5 ML SYG IV ONE (09:51)
[2019-06-27] MEDS ORDERED: ROCURONIUM 50 MG INJ ONE (09:51)
[2019-06-27] MEDS ORDERED: PROPOFOL 20 ML ONE (09:51)
[2019-06-27] MEDS ORDERED: LIDOCAINE 100 MG SYRINGE ONE (09:51)
[2019-06-27] MEDS ORDERED: LABETALOL HCL 20MG INJ ONE (10:04)
[2019-06-27] MEDS ORDERED: POLYMYXIN/BACITRACIN 1L IRRIG IRR ONE (10:11)
[2019-06-27] MEDS ORDERED: LIDOCAINE 1% (MPF) 30 ML INJ ONE (10:13)
[2019-06-27] MEDS ORDERED: LIDOCAINE 1%/EPI (1:100,000) (MDV) 20 ML ONE (10:31)
[2019-06-27] MEDS ORDERED: SUGAMMADEX SODIUM 200 MG/2 ML VIAL IV ONE (10:35)
== END 2019-06-27 13:07 | disposition home or self-care (01) ==
LOC: SDS 07:49
PROVIDERS: ATTEND Surgery Vascular Surgery
DX: I67.1 Cerebral aneurysm, nonruptured (principal); E11.9 Type 2 diabetes mellitus without complications; Z79.4 Long term (current) use of insulin; I12.0 Hypertensive chronic kidney disease with stage 5 chronic kidney disease or end stage renal disease; N18.6 End stage renal disease; Z99.2 Dependence on renal dialysis
CPT/HCPCS: 37609; 71045; 80053; 82962; 85025; 85610; 85730; 88304; 93005; J0690; J2001